=== PATIENT | female | born 1990 | race American Indian/Alaskan Native ===

== ENCOUNTER 2017-07-18 20:57 | Emergency (ER) | payer MEDICAID ==
[2017-07-18 21:10] VITALS: BP 132/93
[2017-07-18] MEDS ORDERED: PENICILLIN VK 250 MG TABLET PO STA (21:30)
[2017-07-18] MEDS ORDERED: oxyCODONE 5 MG TABLET PO STA (21:30)
--- NOTE | 2017-07-18 21:38 | ED Physician Documentation ---
PD HPI HEENT - Stated complaint Stated Complaint: LT MOUTH SWELL/PX - Chief complaint Chief Complaint: Heent - History obtained from History obtained from: Patient, Family - History of Present Illness Timing - onset: How many days ago (4) Timing - duration: Days (4) Timing - details: Gradual onset Pain level max: 8 Pain level now: 8 Location: Tooth (left lower molar) Improves: Nothing Worsens: Swalllowing Associated symptoms: No: Fever, Congestion, Rhinorrhea, Trismus, Unable to swallow, Swollen nodes, Facial swelling, Headache, Cough Similar symptoms before: Diagnosis (dental infections) Recently seen: Not recently seen Review of Systems Constitutional: denies: Fever, Chills Throat: denies: Sore throat Cardiac: denies: Chest pain / pressure Respiratory: denies: Cough GI: denies: Abdominal Pain, Nausea, Vomiting, Diarrhea : denies: Dysuria, Frequency, Hesitancy, Now EGA Skin: denies: Rash PD PAST MEDICAL HISTORY - Past Medical History Cardiovascular: None Respiratory: Asthma Endocrine/Autoimmune: None GI: None : None HEENT: None Psych: None Musculoskeletal: None Derm: None - Past Surgical History Past Surgical History: Yes General: Cholecystectomy - Present Medications Home Medications: Ambulatory Orders Medication Instructions Recorded Confirmed Albuterol Sulfate [Ventolin Hfa] 2 puffs IH Q4H PRN #1 hfa.aer.ad 06/11/1607/18 Hydrocodone/Acetaminophen 1 - 2 each PO Q6H PRN #14 tablet 07/18/17 [Hydrocodon-Acetaminophen 5-325] Ibuprofen [Motrin] 800 mg PO Q8H PRN #30 tablet 07/18/17 Penicillin V Potassium 500 mg PO Q6HR #40 tablet 07/18/17 - Allergies Allergies/Adverse Reactions: Allergies Allergy/AdvReac Type Severity Reaction Status Date / Time No Known Drug Allergies Allergy Verified 07/18/17 21:10 - Social History Does the pt smoke?: Yes Smoking Status: Current every day smoker Does the pt drink ETOH?: Yes Does the pt have substance abuse?: No - Immunizations Immunizations are current?: Yes PD ED PE NORMAL - Vitals Vital signs reviewed: Yes - General General: Alert and oriented X 3, No acute distress, Well developed/nourished - HEENT HEENT: PERRL, Moist mucous membranes, Other (Diffuse dental decay, there is tenderness at the left lower molar. No drainable abscess. No gingival swelling. No Rylan's angina) - Neck Neck: Supple, no meningeal sign, No adenopathy - Cardiac Cardiac: RRR, No murmur - Respiratory Respiratory: No respiratory distress - Derm Derm: Warm and dry - Neuro Neuro: Alert and oriented X 3 - Psych Psych: Normal mood, Normal affect Results - Vitals Vitals: Vital Signs - 24 hr 07/18/17 21:08 Temperature 36.6 C Heart Rate 61 Respiratory 18 Rate Blood Pressure 132/93 H O2 Saturation 100 Oxygen O2 Source Room air PD MEDICAL DECISION MAKING - ED course Complexity details: considered differential, d/w patient, d/w family ED course: Patient with dental caries and dental pain. No evidence of facial cellulitis or drainable abscess. Will place on antibiotics and pain medication for home and follow-up with her dentist. Patient counseled regarding signs and symptoms for which I believe and urgent re-evaluation would be necessary. Patient with good understanding of and agreement to plan and is comfortable going home at this time This document was made in part using voice recognition software. While efforts are made to proofread this document, sound alike and grammatical errors may occur. Normal phonation. No trismus. No fever Departure - Departure Disposition: 01 Home, Self Care Clinical Impression: Dental caries Condition: Good Instructions: ED Tooth Pain Follow-Up: your,dentist within 3 days [Other] Prescriptions: Penicillin V Potassium 500 mg PO Q6HR #40 tablet Hydrocodone/Acetaminophen [Hydrocodon-Acetaminophen 5-325] 1 - 2 each PO Q6H PRN #14 tablet PRN Reason: pain Ibuprofen [Motrin] 800 mg PO Q8H PRN #30 tablet PRN Reason: PAIN &/OR FEVER Comments: Take all antibiotics until gone. Return if you worsen. Make sure to follow-up with your dentist as soon as possible. Do not drink alcohol or drive while on narcotic pain medicine. Note that many narcotic pain relievers also contain tylenol/acetaminophen. Please ensure that your total dose of acetaminophen from all sources does not exceed 3 grams (3000mg) per day. You may constipated on this medication, take a stool softener such as "Colace" twice a day while you are on it. Also recommend a mude-bxx-kjiywzj laxative such as senna or MiraLAX any day that you do not have a bowel movement. If you received narcotic pain medication in the emergency department, do not drive or operate machinery for the next 24 hours. Your blood pressure was elevated today on check in to the emergency department. This does not mean that you have hypertension, it is a common phenomenon to check into the emergency department and have elevated blood pressure. I recommend that you see your primary care physician within the week to have it rechecked when you're feeling better. Discharge Date/Time: 07/18/17 21:45
[2017-07-18] MEDS ORDERED: PENICILLIN VK 250 MG TABLET PO ONE (21:40)
[2017-07-18] MEDS ORDERED: oxyCODONE 5 MG TABLET ONE (21:40)
== END 2017-07-18 21:45 | disposition home or self-care (01) ==
LOC: ED 20:57
DX: K02.9 Dental caries, unspecified (principal); R03.0 Elevated blood-pressure reading, without diagnosis of hypertension; F17.200 Nicotine dependence, unspecified, uncomplicated
CPT/HCPCS: 99283; A9270

== ENCOUNTER 2018-01-06 22:46 | Emergency (ER) | payer MEDICAID ==
--- NOTE | 2018-01-07 02:36 | ED Physician Documentation ---
PD HPI BACK PAIN - Stated complaint Stated Complaint: BACK PX - Chief complaint Chief Complaint: Back Pain - History obtained from History obtained from: Patient - History of Present Illness Timing - onset: Today Timing - duration: Hours Timing - details: Gradual onset Location: Upper, Mid, Left Quality: Pain Associated symptoms: No: Fever, Weakness, Numbness, Incontinent of urine, Unable to urinate, Hematuria, Incontinent of stool Improves with: Nothing Worsened by: Other (pleuritic (deep inspiration)) Similar symptoms before: Has not had sx before Recently seen: Not recently seen - Additional information Additional information: c/o left chest pain, posterior aspect, radiates to neck as well as lower left back. pleuritic component. denies h/o similar sx. Review of Systems Constitutional: reports: Reviewed and negative Cardiac: reports: Chest pain / pressure. denies: Palpitations, Pedal edema, Calf pain Respiratory: reports: Cough (mild, nonproductive). denies: Dyspnea, Hemoptysis , Wheezing GI: reports: Reviewed and negative Musculoskeletal: denies: Extremity swelling PD PAST MEDICAL HISTORY - Past Medical History Cardiovascular: None Respiratory: Asthma Endocrine/Autoimmune: None GI: None : None HEENT: None Psych: None Musculoskeletal: None Derm: None - Past Surgical History Past Surgical History: Yes General: Cholecystectomy - Present Medications Home Medications: Ambulatory Orders Medication Instructions Recorded Confirmed Albuterol Sulfate [Ventolin Hfa] 2 puffs IH Q4H PRN #1 hfa.aer.ad 06/11/1607/18 Hydrocodone/Acetaminophen 1 - 2 each PO Q6H PRN #14 tablet 07/18/17 [Hydrocodon-Acetaminophen 5-325] Ibuprofen [Motrin] 800 mg PO Q8H PRN #30 tablet 07/18/17 Penicillin V Potassium 500 mg PO Q6HR #40 tablet 07/18/17 Hydrocodone/Acetaminophen 1 - 2 each PO Q6HR PRN #14 tablet 01/07/18 [Hydrocodon-Acetaminophen 5-325] - Allergies Allergies/Adverse Reactions: Allergies Allergy/AdvReac Type Severity Reaction Status Date / Time No Known Drug Allergies Allergy Verified 01/06/18 22:57 - Social History Does the pt smoke?: Yes Smoking Status: Current every day smoker Does the pt drink ETOH?: Yes Does the pt have substance abuse?: No - Immunizations Immunizations are current?: Yes PD ED PE NORMAL - Vitals Vital signs reviewed: Yes - General General: Alert and oriented X 3, No acute distress, Well developed/nourished - HEENT HEENT: Moist mucous membranes - Neck Neck: Supple, no meningeal sign - Cardiac Cardiac: No murmur - Respiratory Respiratory: No respiratory distress, Clear bilaterally - Abdomen Abdomen: Soft, Non tender - Extremities Extremities: No edema PD ED PE EXPANDED - Cardiac Cardiac: Tachy, Regular Rhythm Results - Vitals Vitals: Vital Signs - 24 hr 01/06/18 01/07/18 01/07/18 22:52 03:06 04:26 Temperature 36.1 C L Heart Rate 101 H 70 108 H Respiratory 17 18 16 Rate Blood Pressure 107/69 106/74 96/68 O2 Saturation 97 95 94 Oxygen O2 Source Room air - Labs Labs: Laboratory Tests 01/07/18 01/07/18 01/07/18 03:06 03:06 03:06 WBC 11.1 H RBC 4.14 L Hgb 12.5 Hct 38.1 MCV 92.0 MCH 30.3 MCHC 33.0 RDW 13.3 Plt Count 205 MPV 6.8 L Neut # 9.6 H Lymph # 0.7 L [place] # 0.7 Eos # 0.0 Baso # 0.0 Absolute Nucleated RBC 0.00 Nucleated RBC % 0.0 D-Dimer 491.7 H Sodium 128 L Potassium 3.6 Chloride 94 L Carbon Dioxide 26 Anion Gap 8.0 BUN 8 Creatinine 0.7 Estimated GFR (MDRD) 100 Glucose 104 H Calcium 8.0 L - Rads (name of study) chest xray Radiology: Prelim report reviewed, See rad report PD MEDICAL DECISION MAKING - ED course Complexity details: reviewed results, re-evaluated patient, considered differential, d/w patient ED course: patient reported resolution of discomfort with the toradol. elevated d-dimer, but at reevaulation, her pulse was 70. per uptodate algorithms use of 500 as cut-off (and considering lack of PE risk factors or concerning signs such as sustained tachycardia), further study such as CT is unnecessary. Departure - Departure Disposition: 01 Home, Self Care Clinical Impression: Chest pain Qualifiers: Chest pain type: chest pain on breathing Qualified Code(s): R07.1 - Chest pain on breathing Condition: Good Instructions: ED Chest Pain Pleurisy Follow-Up: [facility] [Provider Group] [facility] [Provider Group] Prescriptions: Hydrocodone/Acetaminophen [Hydrocodon-Acetaminophen 5-325] 1 - 2 each PO Q6HR PRN #14 tablet PRN Reason: Pain Discharge Date/Time: 01/07/18 04:53
[2018-01-07] MEDS ORDERED: KETOROLAC 60 MG/2 ML VIAL IVP STA (02:45)
[2018-01-07 03:13] LABS: BASOPHILS % (AUTO) 0.2 %; EOSINOPHILS % (AUTO) 0.3 %; HGB - HEMOGLOBIN 12.5 g/dL (12.0-16.0); LYMPHOCYTES # (AUTO) 0.7 10^3/uL (1.5-3.5); LYMPHOCYTES % (AUTO) 6.4 %; MEAN CORPUSCULAR HEMOGLOBIN 30.3 pg (27.0-31.0); MEAN PLATELET VOLUME 6.8 fL (7.9-10.8); MONOCYTES # (AUTO) 0.7 10^3/uL (0.0-1.0); MONOCYTES % (AUTO) 6.3 %; NEUTROPHILS # (AUTO) 9.6 10^3/uL (1.5-6.6); NEUTROPHILS % (AUTO) 86.8 %; PLT - PLATELET COUNT 205 10^3/uL (130-450); RED BLOOD COUNT 4.14 10^6/uL (4.20-5.40); RED CELL DISTRIBUTION WIDTH 13.3 % (12.0-15.0); WHITE BLOOD COUNT 11.1 x10^3/uL (4.8-10.8)
[2018-01-07 03:19] LABS: CREATININE 0.7 mg/dL (0.4-1.0)
--- NOTE | 2018-01-07 03:28 | XRAY Report ---
EXAM: CHEST RADIOGRAPHY EXAM DATE: 01/07/2018 03:19 AM. CLINICAL HISTORY: Left-sided chest pain, pleuritic. COMPARISON: 08/28/2015. TECHNIQUE: 2 views. FINDINGS: Lungs/Pleura: No focal opacities evident. No pleural effusion. No pneumothorax. Normal volumes. Mediastinum: Heart and mediastinal contours are unremarkable. Other: None. IMPRESSION: Normal 2-view chest radiography. [facility] Referring Provider Line: [phone] SITE ID: [id number]
[2018-01-07 04:29] VITALS: BP 96/68
== END 2018-01-07 04:53 | disposition home or self-care (01) ==
LOC: ED 22:46
DX: R07.1 Chest pain on breathing (principal); J45.909 Unspecified asthma, uncomplicated; F17.200 Nicotine dependence, unspecified, uncomplicated
CPT/HCPCS: 36415; 71046; 80048; 85025; 85379; 96374; 99283

== ENCOUNTER 2018-01-08 21:09 | Inpatient (IN) | payer MEDICAID ==
[2018-01-08] MEDS ORDERED: KETOROLAC 60 MG/2 ML VIAL IVP STA (21:29)
[2018-01-08] MEDS ORDERED: SODIUM CHLORIDE 0.9% 1,000 ML IV ONE (21:29)
--- NOTE | 2018-01-08 21:33 | ED Physician Documentation ---
PD HPI BACK INJURY - Stated complaint Stated Complaint: BACK PX - History obtained from History obtained from: Patient - History of Present Illness Type of injury: Other (27-year-old woman developed sweats and tactile fevers yesterday as well as left-sided back pain. She was seen here and evaluated, a chest x-ray was negative. Lab work was notable for a white count of 11.1 and a borderline d-dimer. Since then the pain has moved out a little bit, she points to the left flank and below and she still has fevers and sweats. She has been taking Vicodin without relief. She denies any drug use. She has a headache 2. She denies urinary complaints.) Review of Systems Constitutional: reports: Fever, Chills Ears: denies: Loss of hearing, Ear pain Nose: denies: Rhinorrhea / runny nose, Congestion Throat: denies: Sore throat Cardiac: denies: Chest pain / pressure, Palpitations Respiratory: denies: Dyspnea, Cough GI: reports: Abdominal Pain. denies: Nausea, Vomiting, Constipation, Diarrhea : reports: Dysuria, Frequency PD PAST MEDICAL HISTORY - Past Medical History Cardiovascular: None Respiratory: Asthma Endocrine/Autoimmune: None GI: None : None HEENT: None Psych: None Musculoskeletal: None Derm: None - Past Surgical History Past Surgical History: Yes General: Cholecystectomy - Present Medications Home Medications: Ambulatory Orders Medication Instructions Recorded Confirmed Albuterol Sulfate [Ventolin Hfa] 2 puffs IH Q4H PRN #1 hfa.aer.ad 06/11/1607/18 Hydrocodone/Acetaminophen 1 - 2 each PO Q6H PRN #14 tablet 07/18/17 [Hydrocodon-Acetaminophen 5-325] Ibuprofen [Motrin] 800 mg PO Q8H PRN #30 tablet 07/18/17 Penicillin V Potassium 500 mg PO Q6HR #40 tablet 07/18/17 Hydrocodone/Acetaminophen 1 - 2 each PO Q6HR PRN #14 tablet 01/07/18 [Hydrocodon-Acetaminophen 5-325] - Allergies Allergies/Adverse Reactions: Allergies Allergy/AdvReac Type Severity Reaction Status Date / Time No Known Drug Allergies Allergy Verified 01/06/18 22:57 - Social History Does the pt smoke?: Yes Smoking Status: Current every day smoker Does the pt drink ETOH?: Yes Does the pt have substance abuse?: No - Family History Family history: reports: Non contributory - Immunizations Immunizations are current?: Yes PD ED PE NORMAL - Vitals Vital signs reviewed: Yes - General General: Alert and oriented X 3, Well developed/nourished, Other (appears uncomfortable) - HEENT HEENT: PERRL, EOMI, Pharynx benign (dry MM) - Neck Neck: Supple, no meningeal sign, No bony TTP - Cardiac Cardiac: RRR, No murmur - Respiratory Respiratory: No respiratory distress, Clear bilaterally - Abdomen Abdomen: Normal bowel sounds, Soft, Non tender - Back Back: No CVA TTP, No spinal TTP - Derm Derm: Normal color, Warm and dry - Extremities Extremities: No deformity, No tenderness to palpate, Other (The patient has equal and normal Achilles and patellar reflexes bilaterally. Normal sensation in all areas of the legs. Patient denies saddle anesthesia. Normal strength in flexion-extension at the ankles, knees, and flexion of the hips.) - Neuro Neuro: Alert and oriented X 3, Normal speech - Psych Psych: Normal mood, Normal affect Results - Vitals Vitals: Vital Signs - 24 hr 01/08/18 01/08/18 01/08/18 21:16 22:21 22:40 Temperature 36.2 C L Heart Rate 91 83 83 Respiratory 15 16 Rate Blood Pressure 92/55 L 95/59 L 86/55 L O2 Saturation 100 100 01/08/18 01/08/18 23:15 23:23 Temperature Heart Rate 82 78 Respiratory 18 18 Rate Blood Pressure 86/56 L 87/62 L O2 Saturation 100 100 Oxygen O2 Source Room air - Labs Labs: Laboratory Tests 01/08/18 01/08/18 01/08/18 21:35 21:39 21:39 WBC 13.4 H RBC 3.86 L Hgb 11.7 L Hct 35.5 L MCV 91.9 MCH 30.3 MCHC 33.0 RDW 13.6 Plt Count 215 MPV 7.2 L Neut # 12.2 H Lymph # 0.5 L [place] # 0.6 Eos # 0.0 Baso # 0.1 Absolute Nucleated RBC 0.00 Nucleated RBC % 0.0 Sodium 127 L Potassium 3.3 L Chloride 96 L Carbon Dioxide 22 Anion Gap 9.0 BUN 16 Creatinine 1.0 Estimated GFR (MDRD) 67 L Glucose 106 H Lactic Acid Calcium 7.7 L Total Bilirubin 0.4 AST 36 ALT 62 H Alkaline Phosphatase 147 H Total Protein 7.0 Albumin 2.8 L Globulin 4.2 Albumin/Globulin Ratio 0.7 L Lipase < 10 L Urine Color Urine Clarity Urine pH Ur Specific [place] Urine Protein Urine Glucose (UA) Urine Ketones Urine Occult Blood Urine Nitrite Urine Bilirubin Urine Urobilinogen Ur Leukocyte Esterase Urine RBC Urine WBC Ur Squamous Epith Cells Urine Bacteria Ur Microscopic Review Urine Culture Comments Urine HCG, Qual Urine Opiates Screen Ur Oxycodone Screen Urine Methadone Screen Ur Propoxyphene Screen Ur Barbiturates Screen Ur Tricyclics Screen Ur Phencyclidine Scrn Ur Amphetamine Screen U Methamphetamines Scrn U Benzodiazepines Scrn Urine Cocaine Screen U Cannabinoids Screen Influenza A (Rapid) Negative Influenza B (Rapid) Negative 01/08/18 01/08/18 01/08/18 21:39 22:10 22:10 WBC RBC Hgb Hct MCV MCH MCHC RDW Plt Count MPV Neut # Lymph # [place] # Eos # Baso # Absolute Nucleated RBC Nucleated RBC % Sodium Potassium Chloride Carbon Dioxide Anion Gap BUN Creatinine Estimated GFR (MDRD) Glucose Lactic Acid 4.1 H* Calcium Total Bilirubin AST ALT Alkaline Phosphatase Total Protein Albumin Globulin Albumin/Globulin Ratio Lipase Urine Color YELLOW Urine Clarity CLOUDY Urine pH 6.0 Ur Specific [place] 1.015 Urine Protein 100 H Urine Glucose (UA) NEGATIVE Urine Ketones NEGATIVE Urine Occult Blood MODERATE H Urine Nitrite NEGATIVE Urine Bilirubin NEGATIVE Urine Urobilinogen >=8.0 H Ur Leukocyte Esterase MODERATE H Urine RBC 0-5 Urine WBC >25 H Ur Squamous Epith Cells RARE Squamous Urine Bacteria Many H Ur Microscopic Review INDICATED Urine Culture Comments INDICATED Urine HCG, Qual NEGATIVE Urine Opiates Screen POSITIVE H Ur Oxycodone Screen POSITIVE H Urine Methadone Screen NEGATIVE Ur Propoxyphene Screen NEGATIVE Ur Barbiturates Screen NEGATIVE Ur Tricyclics Screen NEGATIVE Ur Phencyclidine Scrn NEGATIVE Ur Amphetamine Screen POSITIVE H U Methamphetamines Scrn POSITIVE H U Benzodiazepines Scrn NEGATIVE Urine Cocaine Screen NEGATIVE U Cannabinoids Screen NEGATIVE Influenza A (Rapid) Influenza B (Rapid) PD MEDICAL DECISION MAKING - ED course ED course: 27-year-old woman is ill with left-sided back pain sweats and fevers. She was seen yesterday, I guess for higher back pain and the workup was negative. Seems more over the kidney today and a urinalysis is obtained and with obvious infection and an increasing white count and some borderline blood pressures necessitating aggressive crystalloid fluid therapy especially in light of a lactate of a little over 4. She does not need pressors at this juncture and does not appear critically ill but obviously needs to be treated as such. She was administered Rocephin and Cipro after blood cultures and urinalysis were obtained. Call to Dr. August for admission at 10:58 PM. - Critical Care Time(min): 40 Time Includes: Direct patient care, Review records, Reassess patient, Document care, Coordinate care, Medical consult Procedures included in critical care time: Peripheral IV Departure - Departure Disposition: 66 [facility] DC/Xfer Clinical Impression: Pyelonephritis, Septic shock Condition: Serious
[2018-01-08 21:48] LABS: BASOPHILS # (AUTO) 0.1 10^3/uL (0.0-0.1); BASOPHILS % (AUTO) 0.4 %; HGB - HEMOGLOBIN 11.7 g/dL (12.0-16.0); LYMPHOCYTES # (AUTO) 0.5 10^3/uL (1.5-3.5); MEAN CORPUSCULAR HEMOGLOBIN 30.3 pg (27.0-31.0); MEAN CORPUSCULAR VOLUME 91.9 fL (81.0-99.0); MEAN PLATELET VOLUME 7.2 fL (7.9-10.8); MONOCYTES # (AUTO) 0.6 10^3/uL (0.0-1.0); MONOCYTES % (AUTO) 4.8 %; NEUTROPHILS # (AUTO) 12.2 10^3/uL (1.5-6.6); NEUTROPHILS % (AUTO) 90.8 %; PLT - PLATELET COUNT 215 10^3/uL (130-450); RED BLOOD COUNT 3.86 10^6/uL (4.20-5.40); RED CELL DISTRIBUTION WIDTH 13.6 % (12.0-15.0); WHITE BLOOD COUNT 13.4 x10^3/uL (4.8-10.8)
[2018-01-08] MEDS ORDERED: IOPAMIDOL-300 100 ML VIAL ONE (21:49)
[2018-01-08] MEDS ORDERED: LACTATED RINGERS 2,000 ML IV STA (21:56)
[2018-01-08 22:02] LABS: ALBUMIN 2.8 g/dL (3.2-5.5); ALBUMIN/GLOBULIN RATIO 0.7 (1.0-2.2); ALKALINE PHOSPHATASE 147 IU/L (42-121); ALT ALANINE AMINOTRANSFERASE 62 IU/L (10-60); AST ASPARTATE AMINOTRANSFERASE 36 IU/L (10-42); BILIRUBIN,TOTAL 0.4 mg/dL (0.2-1.0); BUN - BLOOD UREA NITROGEN 16 mg/dL (6-20); CALCIUM 7.7 mg/dL (8.5-10.3); CARBON DIOXIDE - CO2 22 mmol/L (21-32); CHLORIDE 96 mmol/L (101-111); GFR - MDRD 67 (>89); GLUCOSE 106 mg/dL (70-100); SODIUM 127 mmol/L (135-145)
[2018-01-08 22:03] LABS: LIPASE < 10 U/L (22-51)
[2018-01-08 22:23] LABS: MUDS CUTOFF CONCENTRATIONS CUTOFF CONC BELOW:
[2018-01-08 22:26] LABS: GLUCOSE, URINE (UA) NEGATIVE (NEGATIVE); KETONES,URINE (UA) NEGATIVE (NEGATIVE); LEUKOCYTE ESTERASE, URINE MODERATE (NEGATIVE); NITRITE,URINE NEGATIVE (NEGATIVE); OCCULT BLOOD,URINE MODERATE (NEGATIVE); PROTEIN,URINE 100 mg/dL (NEGATIVE); UROBILINOGEN,URINE >=8.0 E.U./dL (NORMAL)
[2018-01-08 22:41] LABS: BILIRUBIN,URINE NEGATIVE (NEGATIVE); CLARITY,URINE CLOUDY (CLEAR); HCG UR QUAL NEGATIVE; ICTOTEST,URINE NEGATIVE
[2018-01-08 22:42] LABS: AMPHETAMINE SCREEN,URINE POSITIVE (NEGATIVE); BACTERIA,URINE Many /HPF (None Seen); BENZODIAZEPINES SCREEN, URINE NEGATIVE (NEGATIVE); COCAINE SCREEN URINE NEGATIVE (NEGATIVE); METHADONE SCREEN, URINE NEGATIVE (NEGATIVE); METHAMPHETAMINES SCREEN, URINE POSITIVE (NEGATIVE); OPIATE SCREEN, URINE POSITIVE (NEGATIVE); OXYCODONE SCREEN, URINE POSITIVE (NEGATIVE); PROPOXYPHENE SCREEN, URINE NEGATIVE (NEGATIVE); RBC,URINE 0-5 /HPF (0-5); SQUAMOUS EPITHELIAL CELL,UR RARE Squamous (<= Few); TRICYCLIC ANTIDEPRESSANT,URINE NEGATIVE (NEGATIVE)
[2018-01-08] MEDS ORDERED: cefTRIAXone 1 GM in SODIUM CHLORIDE 0.9% MINIBAG 100 ML IV STA (22:54)
[2018-01-08] MEDS ORDERED: CIPROFLOXACIN 400 MG/200 ML 200 ML IV ONE (22:56)
[2018-01-08] MEDS ORDERED: IOPAMIDOL-300 100 ML VIAL IVP ONE (22:56)
[2018-01-08] MEDS ORDERED: oxyCODONE 5 MG TABLET PO PRN (23:25)
[2018-01-08] MEDS ORDERED: ONDANSETRON 4 MG/2 ML VIAL IVP PRN (23:25)
[2018-01-08] MEDS ORDERED: POTASSIUM CHLORIDE 20 MEQ TABLET PO SCH (23:30)
--- NOTE | 2018-01-08 23:30 | CT Preliminary Report ---
Exam: CT ABDOMEN/PELVIS W/ IMPRESSION: 1. Small focal irregular consolidated opacity seen medially in the right lower lobe measuring 2.2 x 2 .3 centimeters. This could represent pneumonia versus scarring. Irregular malignant nodule is not com pletely excluded and follow-up is recommended. Mild hazy opacity seen posteriorly in the bilateral lo wer lobes, could be atelectasis. Minimal irregular opacities in the right middle lobe and lingula, co uld represent atelectasis or scarring. 2. Mild intrahepatic bile duct dilatation. The gallbladder is been removed. The common duct is mildly dilated at 9 mm, tapers at the distal aspect. 3. Low-density cystic mass seen at the head of the pancreas measuring 8 x 12 mm. A one-year follow-up exam such as an MR pancreas mass protocol can be obtained to confirm stability. 4. Enlarged left kidney with multiple areas of ill-defined hypodensities consistent with severe acute left pyelonephritis. 5. There appears to be a left hemorrhagic ovarian cyst measuring 3.4 x 2.6 cm. recommend follow-up pe lvic ultrasound in 6 weeks to ensure resolution. 6. Minimal free fluid in the posterior cul-de-sac. 7. Otherwise, as above. [facility] SITE ID: [id number]
[2018-01-08] MEDS ORDERED: ACETAMINOPHEN 1,000 MG/100 ML 100 ML IV SCH (23:32)
[2018-01-08] MEDS ORDERED: ALBUTEROL NEB 2.5 MG/3 ML INH PRN (23:34)
[2018-01-08] MEDS ORDERED: BUDESONIDE/FORMOTEROL 80/4.5 MCG INHALER INH SCH (23:45)
[2018-01-09] MEDS ORDERED: PIPERACILLIN/TAZOBACTAM 3.375 GM in SODIUM CHLORIDE 0.9% MINIBAG 100 ML IV SCH ×2
--- NOTE | 2018-01-09 | CT Report ---
EXAM: CT ABDOMEN AND PELVIS EXAM DATE: 01/08/2018 10:58 PM. CLINICAL HISTORY: Left abdominal pain. COMPARISONS: None. TECHNIQUE: Routine helical CT imaging was performed through the abdomen and pelvis. IV contrast: 100 mL Isovue 300. Enteric contrast: No. Reconstructions: Coronal and sagittal. In accordance with CT protocol optimization, one or more of the following dose reduction techniques w ere utilized for this exam: automated exposure control, adjustment of mA and/or KV based on patient s ize, or use of iterative reconstructive technique. FINDINGS: Lung Bases: Small focal irregular consolidated opacity seen medially in the right lower lobe measurin g 2.2 x 2.3 cm. Mild hazy opacity seen posteriorly in the bilateral lower lobes, could be atelectasis . Minimal irregular opacities in the right middle lobe and lingula. Mild intrahepatic bile duct dilatation. The gallbladder has been removed. The common duct is mildly d ilated at 9 mm, tapers at the distal aspect. No focal liver lesions are seen. Low-density cystic mass seen at the head of the pancreas measuring 8 x 12 mm. A one-year follow-up ex am such as an MR pancreatic mass protocol could be obtained to confirm stability. Spleen: Unremarkable. Adrenals: Unremarkable. Enlarged left kidney with multiple areas of ill-defined hypodensities consistent with severe acute le ft pyelonephritis. No definite abscess is seen. No hydronephrosis. Adjacent stranding. The right kidn ey appears unremarkable. Bowel: No acute bowel findings are seen. The appendix is not definitely seen. Minimal free fluid in t he posterior cul-de-sac. Pelvis: The bladder is not fully distended which limits evaluation. The uterus is retroverted. There appears to be a left hemorrhagic ovarian cyst measuring 3.4 x 2.6 cm. Vascular Structures: No acute findings. Bones: No acute bone findings. IMPRESSION: 1. Small focal irregular consolidated opacity seen medially in the right lower lobe measuring 2.2 x 2 .3 cm. This could represent pneumonia versus scarring. Irregular malignant nodule is not completely e xcluded and follow-up is recommended. Mild hazy opacity seen posteriorly in the bilateral lower lobes , could be atelectasis. Minimal irregular opacities in the right middle lobe and lingula, could repre sent atelectasis or scarring. 2. Mild intrahepatic bile duct dilatation. The gallbladder has been removed. The common duct is mildl y dilated at 9 mm, tapers at the distal aspect. 3. Low-density cystic mass seen at the head of the pancreas measuring 8 x 12 mm. A one-year follow-up exam such as an MR pancreas mass protocol can be obtained to confirm stability. 4. Enlarged left kidney with multiple areas of ill-defined hypodensities consistent with severe acute left pyelonephritis. 5. There appears to be a left hemorrhagic ovarian cyst measuring 3.4 x 2.6 cm. Recommend follow-up pe lvic ultrasound in 6 weeks to ensure resolution. 6. Minimal free fluid in the posterior cul-de-sac. 7. Otherwise, as above. [facility] Referring Provider Line: [phone] SITE ID: [id number]
[2018-01-09] MEDS: NS W/20 MEQ KCL 1,000 ML IV SCH ×2 (01:43→17:17)
[2018-01-09] MEDS: SODIUM CHLORIDE FLUSH 0.9% 10 ML SYRINGE IVP PRN ×2 (01:49→02:10)
[2018-01-09] MEDS: KETOROLAC 15 MG/ML VIAL IVP SCH ×5 (02:01→23:46)
[2018-01-09] MEDS: LACTOBACILLUS RHAMNOSUS GG CAPSULE PO SCH ×2 (02:07→09:10)
[2018-01-09] MEDS: guaiFENesin 600 MG TABLET PO SCH ×3 (02:07→20:59)
[2018-01-09] MEDS: SODIUM CHLORIDE FLUSH 0.9% 10 ML SYRINGE IVP SCH ×3 (02:38→17:05)
--- NOTE | 2018-01-09 03:52 | HISTORY & PHYSICAL EXAMINATION ---
DATE OF SERVICE: 01/08/2018 Physician: Natalie August MD CHIEF COMPLAINT: Back pain. HISTORY OF PRESENT ILLNESS: The patient is a 27-year-old, white female with no significant past medical history who presented to the ER yesterday on January 07, and was evaluated for pleuritic chest pain. Her workup was unrevealing. Therefore, she was discharged from the ER. Today, she returned with similar complaints, although her complaints were somewhat vague. She reported that she started to have back pain about 5 days ago. She also reported that when she would take a deep breath her back and chest would hurt. Subsequently, she developed fever and headache. Today, prior to coming to the ER, the left side of her back and flank hurt and the pain radiated to her abdomen. She did not report history of prior urinary tract infection. Did not report symptoms of dysuria. Denied abnormal menstrual periods. She has been sexually active with one partner. I asked her about substance abuse and she reported that she smokes certain substances. She denied IV drug use. She was not very forthcoming, but admitted to using amphetamine and methamphetamine. Upon presentation to the ER, the patient appeared acutely ill. Her vital signs showed borderline low blood pressure 80-90 systolic, temperature was 36.2 Celsius, heart rate between 80 and 90, respiratory rate 16, oxygen saturation 100% on room air. Laboratories had numerous abnormalities including abnormal electrolyte panel: Sodium 127, potassium 3.3, lactic acid 4.1. Slightly abnormal liver function tests: ALT 62 , alkaline phosphatase 147. Lipase was low. White blood cell count was elevated at 13.4, hemoglobin was 11.7. Urinalysis was strongly positive, showing many bacteria. Toxicology screen was positive for opiate, oxycodone, amphetamine and methamphetamines. Influenza screen was negative. The patient underwent CT scan of the abdomen and pelvis, which showed numerous abnormalities. The following preliminary radiology read is available: 1. Enlarged left kidney with multiple areas of ill-defined hypodensities, consistent with severe acute left pyelonephritis. 2. Low density cystic mass in the head of the pancreas measuring 8 x 12 mm. One year followup with MRI pancreas mass protocol was recommended. 3. Mild intrahepatic bile duct dilatation, status post cholecystectomy. 4. Multiple irregular focal densities in the chest, including right lower lobe lesion measuring 2.2 x 2.3 cm. This was read as pneumonia versus scarring. Irregular malignant nodule could not be excluded and followup for that was recommended. In addition, there were hazy opacities posteriorly in the bilateral lower lobes, which could be atelectasis, and minimal irregular opacities in the right middle lobe and lingula could be atelectasis or scarring. 5. Hemorrhagic left ovarian cyst. 6. Minimal free fluid in the posterior cul-de-sac. PAST MEDICAL HISTORY 1. Asthma. 2. Status post cholecystectomy. OUTPATIENT MEDICATIONS Include: 1. Inhaler/albuterol. 2. Hydrocodone, which was given during prior ER visit. FAMILY HISTORY: The patient is adopted. SOCIAL HISTORY: The patient smokes cigarettes. She also uses amphetamine and smokes different substances, but denied IV drug abuse. Does not drink. REVIEW OF SYSTEMS: Please see pertinent positives listed above that history of present illness. The patient did not report additional complaint on the 12-point review. PHYSICAL EXAMINATION VITAL SIGNS: Listed above at history of present illness. GENERAL: The patient is a well-developed, young female who was not in acute distress. SKIN: Without rash. HEENT: Oral mucosa dry, poor dentition, decay, and broken teeth. LYMPHATIC: No lymphedema. CARDIOVASCULAR: S1, S2, regular. No pathologic murmur. RESPIRATORY: No wheezes. No crackles. Good air entry throughout. No increased work of breathing. ABDOMEN: At the time of my exam, there was no tenderness, No guarding, no rebound. No costovertebral angle tenderness. Bowel tones were hypoactive. NEUROLOGIC: Alert, oriented, nonfocal. PSYCHIATRIC: Cooperative. ASSESSMENT/ACTIVE ISSUES/DIAGNOSES 1. Sepsis. Blood pressure on the lower side; however, no tachycardia and no fever. 2. Severe left-sided pyelonephritis/urinary tract infection. 3. Probable pneumonia, multiple incidental findings on CT of the lungs plus an infiltrate, which could be pneumonia. In addition, with history of substance abuse and smoking, substance-induced lung injury and noncardiac pulmonary edema could also contribute. 4. Polysubstance abuse/inhalation/smoking. 5. Lactic acidosis secondary to sepsis plus substance abuse. 6. Abnormal electrolytes including hypokalemia and hyponatremia. 7. Normocytic anemia. 8. Multiple incidental findings on abdominal CT scan, which will need followup including a pancreatic lesion, which will require MRI; lung abnormalities including nodules , possible scarring versus nodules/mass, ovarian cyst. PLAN AND ORDERS 1. Patient is getting admitted as inpatient. 2. Given that she both has severe pyelonephritis and a probable pneumonia, she will be treated with Zosyn, which would cover for both. With sepsis and significant pyelonephritis, I would cover for gram-negative rods and Zosyn would do that. Zosyn would also cover for complex pneumonia as well. Considering that besides the back pain, the patient also had pleuritic chest pain, per clinical grounds and radiology finding it is reasonable to assume that she does have pneumonia. Her risk factor for pneumonia would be inhalant drug use, and besides pneumonia she could also have inhalant-induced lung injury. 3. For sepsis and hypotension, the patient already received 3 liters IV fluid in the ER. We will continue IV hydration overnight and electrolyte replacement, potassium will be given. Regarding possibility of vasopressor, the patient is not tachycardic, appears with good organ perfusion such as good mentation, no organ failure, and I suppose that being a young female her blood pressure is probably on the lower side at baseline. For now, I would not start vasopressor; we will follow the clinical course and, if needed, we will upgrade to the ICU. In any case, at this point, she will be admitted to the medical floor and monitored closely. 4. For pneumonia, will order supportive care including Mucinex inhalers, bronchodilator, bowel prophylaxis, deep venous thrombosis prophylaxis. 5. Repeat laboratories in the morning. CODE STATUS: FULL CODE. ATTESTATION: I certify that the reasonable expectation for this patient is to remain hospitalized for more than 2 days. She will need IV antibiotics at least for 3 days, given the severity of sepsis and pyelonephritis, and she will also need to stay hospitalized until urine culture and blood cultures return. Her case is complicated by pneumonia and substance abuse as well. She will be inpatient. It is expected that she gets discharged or transferred to another hospital in less than 96 hours. Time I spent in the care of this patient was 55 minutes. TD: 01/09/2018 03:51 GEORGINA
[2018-01-09 05:22] LABS: EOSINOPHILS % (AUTO) 0.5 %; LYMPHOCYTES # (AUTO) 0.5 10^3/uL (1.5-3.5); LYMPHOCYTES % (AUTO) 5.4 %; MEAN CORPUSCULAR HEMOGLOBIN 30.9 pg (27.0-31.0); MEAN CORPUSCULAR HGB CONC 33.4 g/dL (32.0-36.0); MEAN CORPUSCULAR VOLUME 92.6 fL (81.0-99.0); MEAN PLATELET VOLUME 7.5 fL (7.9-10.8); MONOCYTES # (AUTO) 0.6 10^3/uL (0.0-1.0); NEUTROPHILS # (AUTO) 8.4 10^3/uL (1.5-6.6); NEUTROPHILS % (AUTO) 88.1 %; PLT - PLATELET COUNT 167 10^3/uL (130-450); RED BLOOD COUNT 3.55 10^6/uL (4.20-5.40); RED CELL DISTRIBUTION WIDTH 14.1 % (12.0-15.0); WHITE BLOOD COUNT 9.5 x10^3/uL (4.8-10.8)
[2018-01-09 05:29] LABS: ALBUMIN 2.2 g/dL (3.2-5.5); ALBUMIN/GLOBULIN RATIO 0.7 (1.0-2.2); BILIRUBIN,TOTAL 0.6 mg/dL (0.2-1.0); CALCIUM 7.2 mg/dL (8.5-10.3); CREATININE 0.7 mg/dL (0.4-1.0); TOTAL PROTEIN 5.5 g/dL (6.7-8.2)
[2018-01-09] MEDS ORDERED: POLYETHYLENE GLYCOL 3350 17 GM PACKET PO SCH (09:00)
[2018-01-09] MEDS ORDERED: cefTRIAXone 1 GM in SODIUM CHLORIDE 0.9% MINIBAG 100 ML IV SCH (09:00)
[2018-01-09] MEDS: PIPERACILLIN/TAZOBACTAM 3.375 GM in SODIUM CHLORIDE 0.9% MINIBAG 100 ML IV SCH ×3 (09:06→21:00)
[2018-01-09] MEDS: FORMOTEROL FUMARATE NEB 20 MCG/2 ML INH SCH ×2 (11:59→23:03)
[2018-01-09] MEDS: BUDESONIDE 0.5 MG/2 ML NEB INH SCH ×2 (11:59→23:03)
--- NOTE | 2018-01-09 18:34 | PROVIDER PROGRESS NOTE ---
Assessment/Plan - Problem List (1) Pyelonephritis Assessment/Plan: Patient presented with flank/back pain located more to the left side and this is greatly improved. She continues to deny dysuria, hematuria, or urinary incontinence. When she presented to the ED, she appeared quite ill, and continues to appear fatigued. She has not made extra attempts to ambulate. She denies nausea or vomiting. Plan: Monitor urine out put, treat symptoms and continue IV antibiotics and await urine/blood cultures. (2) Pneumonia Assessment/Plan: Patient continues to appear ill with very low energy. She denies a productive cough. Coarse crackles can be heard bilaterally. Patient has been afebrile. Plan: Continue IV antibiotics and encourage sputum sample. (3) Substance abuse Assessment/Plan: Patient has very poor dentition with very few teeth. This is likely related to prolonged drug abuse. Plan: Continue to monitor for fishy business related to importing contraband. (4) Electrolyte abnormality Assessment/Plan: Upon admission the patient was found to be hyponatremic with a sodium only 127, that has improved to 132 today. She was also noted to be hypokalemic with a potassium of 3.3, that has improved to 3.7 today. Both of these abnormalities can be explained by the primary disease process of a complicated UTI. The patient has not had signs of confusion and her oral intake is now improved. Plan: Monitor labs and replace electrolytes as needed. - Current Meds Current Meds: Current Medications Generic Name Dose Route Start Last Admin Trade Name Freq PRN Reason Stop Dose Admin Albuterol 2.5 mg 01/08/18 23:34 01/09/18 09:15 INH 2.5 mg Q4HR PRN Administration Dyspnea Budesonide 0.5 mg 01/09/18 09:00 01/09/18 11:59 Pulmicort INH Not Given RTBID JOVANNY Formoterol Fumarate 20 mcg 01/09/18 09:00 01/09/18 11:59 Perforomist INH Not Given RTBID JOVANNY Guaifenesin 600 mg 01/08/18 23:45 01/09/18 09:10 Mucinex PO 600 mg BID JOVANNY Administration Potassium Chloride/Sodium Chloride 1,000 mls @ 100 mls/hr 01/08/18 23:45 09/16 17:17 Normal Saline 0.9% W/20 Meq Kcl IV 100 mls/hr .Q10H JOVANNY Administration Piperacillin Sod/Tazobactam 100 mls @ 200 mls/hr 01/09/18 10:00 01/09/18 16: 58 Sod 3.375 gm/ Sodium Chloride IV 200 mls/hr Q6H JOVANNY Administration Ketorolac Tromethamine 15 mg 01/09/18 00:00 01/09/18 17:05 Toradol Inj IVP 01/14/18 00:00 15 mg Q6HR JOVANNY Administration Lactobacillus Rhamnosus 1 cap 01/08/18 23:45 01/09/18 09:10 Culturelle PO 1 cap DAILY JOVANNY Administration Sodium Chloride 10 ml 01/08/18 23:25 01/09/18 02:10 Normal Saline Flush 0.9% IVP 10 ml PRN PRN Administration NEEDED PER PROVIDER ORDERS Sodium Chloride 10 ml 01/09/18 01:00 01/09/18 17:05 Normal Saline Flush 0.9% IVP 10 ml 0100,[id number],1700 JOVANNY Administration - Lab Result Lab results reviewed: Yes Fish Bone Diagrams: 01/11/18 11:29 01/11/18 11:29 - EKG Results EKG Interpreted Independently: Yes - Diagnostic Imaging Results Diagnostic Imaging Results: Prelim report reviewed, Final report reviewed - Additional Planning Condition/Complexity: Stable My Orders: My Active Orders 01/09/18 09:27 RT [Nebulizer/MDI Tx.] [RC] .[id number] Plan Discussed with:: Patient, Spouse Time Spent: 15-30 minutes Subjective - Subjective Patient Reports: Feeling Better, Cough, Fatigue Nursing Reports: No Complaints Objective Vital Signs: Vital Signs - 24 hr 01/09/18 01/09/18 01/09/18 00:00 00:06 07:24 Temperature 36.4 C L 36.6 C Heart Rate 78 Heart Rate [ 80 88 Brachial] Respiratory 17 18 19 Rate Blood Pressure 90/60 Blood Pressure 90/49 L 89/49 L [Left Brachial artery] O2 Saturation 100 100 99 01/09/18 01/09/18 09:29 15:40 Temperature 36.7 C Heart Rate 87 Heart Rate [ 89 Brachial] Respiratory 14 19 Rate Blood Pressure Blood Pressure 92/52 L [Left Brachial artery] O2 Saturation 100 Oxygen O2 Source Room air I&O (Last 24 Hrs): Intake and Output Totals x24h 01/07/18 01/08/18 01/09/18 23:59 23:59 23:59 Intake Total 1600 2355 Output Total 1200 Balance 1600 1155 General: Alert, Oriented x3, Cooperative, Mild distress HEENT: Atraumatic, PERRLA Neck: Supple, No JVD, No thyromegaly Lymphatic: no adenopathy Neuro: Alert, CN 2-12 Grossly Intact, Oriented Times 3 Cardiovascular: Regular rate, Normal S1, Normal S2 Respiratory: Chest non-tender, No respiratory distress, Wheezes, Rhonchi Abdomen: Normal bowel sounds, Soft, Other (gaurded, mildly rounded.) Extremities: No edema, No tenderness/swelling Skin: No rashes, No breakdown, No significant lesion - Results Results: Laboratory Results WBC 9.5 x10^3/uL (4.8-10.8) 01/09/18 04:56 RBC 3.55 10^6/uL (4.20-5.40) L 01/09/18 04:56 Hgb 11.0 g/dL (12.0-16.0) L 01/09/18 04:56 Hct 32.8 % (37.0-47.0) L 01/09/18 04:56 MCV 92.6 fL (81.0-99.0) 01/09/18 04:56 MCH 30.9 pg (27.0-31.0) 01/09/18 04:56 MCHC 33.4 g/dL (32.0-36.0) 01/09/18 04:56 RDW 14.1 % (12.0-15.0) 01/09/18 04:56 Plt Count 167 10^3/uL (130-450) 01/09/18 04:56 MPV 7.5 fL (7.9-10.8) L 01/09/18 04:56 Neut # 8.4 10^3/uL (1.5-6.6) H 01/09/18 04:56 Lymph # 0.5 10^3/uL (1.5-3.5) L 01/09/18 04:56 [place] # 0.6 10^3/uL (0.0-1.0) 01/09/18 04:56 Eos # 0.0 10^3/uL (0.0-0.7) 01/09/18 04:56 Baso # 0.0 10^3/uL (0.0-0.1) 01/09/18 04:56 Absolute Nucleated RBC 0.00 x10^3/uL 01/09/18 04:56 Nucleated RBC % 0.0 /100WBC 01/09/18 04:56 Sodium 132 mmol/L (135-145) L 01/09/18 04:56 Potassium 3.7 mmol/L (3.5-5.0) 01/09/18 04:56 Chloride 103 mmol/L (101-111) 01/09/18 04:56 Carbon Dioxide 23 mmol/L (21-32) 01/09/18 04:56 Anion Gap 6.0 (6-13) 01/09/18 04:56 BUN 13 mg/dL (6-20) 01/09/18 04:56 Creatinine 0.7 mg/dL (0.4-1.0) 01/09/18 04:56 Estimated GFR (MDRD) 100 (>89) 01/09/18 04:56 Glucose 94 mg/dL (70-100) 01/09/18 04:56 Lactic Acid 1.4 mmol/L (0.5-2.2) 01/09/18 04:56 Calcium 7.2 mg/dL (8.5-10.3) L 01/09/18 04:56 Total Bilirubin 0.6 mg/dL (0.2-1.0) 01/09/18 04:56 AST 25 IU/L (10-42) 01/09/18 04:56 ALT 47 IU/L (10-60) 01/09/18 04:56 Alkaline Phosphatase 97 IU/L (42-121) 01/09/18 04:56 Total Protein 5.5 g/dL (6.7-8.2) L 01/09/18 04:56 Albumin 2.2 g/dL (3.2-5.5) L 01/09/18 04:56 Globulin 3.3 g/dL (2.1-4.2) 01/09/18 04:56 Albumin/Globulin Ratio 0.7 (1.0-2.2) L 01/09/18 04:56 Lipase < 10 U/L (22-51) L 01/08/18 21:39 Urine Color YELLOW 01/08/18 22:10 Urine Clarity CLOUDY (CLEAR) 01/08/18 22:10 Urine pH 6.0 PH (5.0-7.5) 01/08/18 22:10 Ur Specific [place] 1.015 (1.002-1.030) 01/08/18 22:10 Urine Protein 100 mg/dL (NEGATIVE) H 01/08/18 22:10 Urine Glucose (UA) NEGATIVE mg/dL (NEGATIVE) 01/08/18 22:10 Urine Ketones NEGATIVE mg/dL (NEGATIVE) 01/08/18 22:10 Urine Occult Blood MODERATE (NEGATIVE) H 01/08/18 22:10 Urine Nitrite NEGATIVE (NEGATIVE) 01/08/18 22:10 Urine Bilirubin NEGATIVE (NEGATIVE) 01/08/18 22:10 Urine Urobilinogen >=8.0 E.U./dL (NORMAL) H 01/08/18 22:10 Ur Leukocyte Esterase MODERATE (NEGATIVE) H 01/08/18 22:10 Urine RBC 0-5 /HPF (0-5) 01/08/18 22:10 Urine WBC >25 /HPF (0-5) H 01/08/18 22:10 Ur Squamous Epith Cells RARE Squamous (<= Few) 01/08/18 22:10 Urine Bacteria Many /HPF (None Seen) H 01/08/18 22:10 Ur Microscopic Review INDICATED 01/08/18 22:10 Urine Culture Comments INDICATED 01/08/18 22:10 Urine HCG, Qual NEGATIVE 01/08/18 22:10 Urine Opiates Screen POSITIVE (NEGATIVE) H 01/08/18 22:10 Ur Oxycodone Screen POSITIVE (NEGATIVE) H 01/08/18 22:10 Urine Methadone Screen NEGATIVE (NEGATIVE) 01/08/18 22:10 Ur Propoxyphene Screen NEGATIVE (NEGATIVE) 01/08/18 22:10 Ur Barbiturates Screen NEGATIVE (NEGATIVE) 01/08/18 22:10 Ur Tricyclics Screen NEGATIVE (NEGATIVE) 01/08/18 22:10 Ur Phencyclidine Scrn NEGATIVE (NEGATIVE) 01/08/18 22:10 Ur Amphetamine Screen POSITIVE (NEGATIVE) H 01/08/18 22:10 U Methamphetamines Scrn POSITIVE (NEGATIVE) H 01/08/18 22:10 U Benzodiazepines Scrn NEGATIVE (NEGATIVE) 01/08/18 22:10 Urine Cocaine Screen NEGATIVE (NEGATIVE) 01/08/18 22:10 U Cannabinoids Screen NEGATIVE (NEGATIVE) 01/08/18 22:10 Influenza A (Rapid) Negative (Negative) 01/08/18 21:35 Influenza B (Rapid) Negative (Negative) 01/08/18 21:35
[2018-01-09] MEDS: ENOXAPARIN 40 MG/0.4 ML SYRINGE SUBQ SCH (20:59)
[2018-01-10] MEDS: SODIUM CHLORIDE FLUSH 0.9% 10 ML SYRINGE IVP SCH ×3 (01:28→16:54)
[2018-01-10] MEDS: PIPERACILLIN/TAZOBACTAM 3.375 GM in SODIUM CHLORIDE 0.9% MINIBAG 100 ML IV SCH (03:46)
[2018-01-10] MEDS: NS W/20 MEQ KCL 1,000 ML IV SCH ×3 (05:49→16:52)
[2018-01-10] MEDS: KETOROLAC 15 MG/ML VIAL IVP SCH ×3 (06:37→18:27)
[2018-01-10] MEDS: BUDESONIDE 0.5 MG/2 ML NEB INH SCH ×2 (07:45→20:00)
[2018-01-10] MEDS: FORMOTEROL FUMARATE NEB 20 MCG/2 ML INH SCH ×2 (07:48→20:00)
[2018-01-10] MEDS: LACTOBACILLUS RHAMNOSUS GG CAPSULE PO SCH (08:53)
[2018-01-10] MEDS: guaiFENesin 600 MG TABLET PO SCH ×2 (08:54→21:06)
[2018-01-10] MEDS: ENOXAPARIN 40 MG/0.4 ML SYRINGE SUBQ SCH (09:05)
[2018-01-10] MEDS: cefTRIAXone 1 GM in SODIUM CHLORIDE 0.9% MINIBAG 100 ML IV SCH (10:18)
[2018-01-10 10:29] LABS: BASOPHILS % (AUTO) 0.2 %; EOSINOPHILS # (AUTO) 0.1 10^3/uL (0.0-0.7); EOSINOPHILS % (AUTO) 0.7 %; HGB - HEMOGLOBIN 9.7 g/dL (12.0-16.0); LYMPHOCYTES # (AUTO) 0.8 10^3/uL (1.5-3.5); LYMPHOCYTES % (AUTO) 6.5 %; MEAN CORPUSCULAR HEMOGLOBIN 31.2 pg (27.0-31.0); MEAN CORPUSCULAR VOLUME 91.7 fL (81.0-99.0); MEAN PLATELET VOLUME 7.1 fL (7.9-10.8); MONOCYTES # (AUTO) 0.7 10^3/uL (0.0-1.0); MONOCYTES % (AUTO) 6.3 %; NEUTROPHILS % (AUTO) 86.3 %; PLT - PLATELET COUNT 170 10^3/uL (130-450); RED CELL DISTRIBUTION WIDTH 14.2 % (12.0-15.0); WHITE BLOOD COUNT 11.6 x10^3/uL (4.8-10.8)
[2018-01-10 10:39] LABS: CALCIUM 7.3 mg/dL (8.5-10.3); CREATININE 0.7 mg/dL (0.4-1.0); MAGNESIUM 1.8 mg/dL (1.7-2.8)
--- NOTE | 2018-01-10 17:21 | PROVIDER PROGRESS NOTE ---
Assessment/Plan - Problem List (1) Escherichia coli urinary tract infection Assessment/Plan: Patient presented with flank/back pain located more to the left side and this is greatly improved. She continues to deny dysuria, hematuria, or urinary incontinence. When she presented to the ED, she appeared quite ill, and continues to appear fatigued. She has not made extra attempts to ambulate. She denies nausea or vomiting. Plan: Monitor urine out put, treat symptoms and continue IV antibiotics and await urine/blood cultures. (2) Pneumonia Assessment/Plan: Patient continues to appear ill with very low energy. She denies a productive cough. Coarse crackles can be heard bilaterally. Patient has been afebrile. Plan: Continue IV antibiotics and encourage sputum sample. (3) Substance abuse Assessment/Plan: Patient has very poor dentition with very few teeth. This is likely related to prolonged drug abuse. Her boyfriend is present for this exam and appears calm and supportive. Plan: Continue to monitor for suspicious visitors, which there have not been reports of as per nursing. (4) Electrolyte abnormality Assessment/Plan: Upon admission the patient was found to be hyponatremic with a sodium only 127, that has improved to 133 today. She was also noted to be hypokalemic with a potassium of 3.3, that has improved to 4.3 today. Both of these abnormalities can be explained by the primary disease process of a complicated UTI. The patient has not had signs of confusion and her oral intake is now improved. Plan: Monitor labs and replace electrolytes as needed. - Current Meds Current Meds: Current Medications Generic Name Dose Route Start Last Admin Trade Name Freq PRN Reason Stop Dose Admin Albuterol 2.5 mg 01/08/18 23:34 01/09/18 09:15 INH 2.5 mg Q4HR PRN Administration Dyspnea Budesonide 0.5 mg 01/09/18 09:00 01/10/18 07:45 Pulmicort INH 0.5 mg RTBID JOVANNY Administration Enoxaparin Sodium 40 mg 01/09/18 21:00 01/10/18 09:05 Lovenox SUBQ Not Given DAILY JOVANNY Formoterol Fumarate 20 mcg 01/09/18 09:00 01/10/18 07:48 Perforomist INH 20 mcg RTBID JOVANNY Administration Guaifenesin 600 mg 01/08/18 23:45 01/10/18 08:54 Mucinex PO 600 mg BID JOVANNY Administration Potassium Chloride/Sodium Chloride 1,000 mls @ 100 mls/hr 01/08/18 23:45 16:52 Normal Saline 0.9% W/20 Meq Kcl IV 100 mls/hr .Q10H JOVANNY Administration Ceftriaxone Sodium 1 gm/ 100 mls @ 200 mls/hr 01/10/18 10:00 01/10/18 10:50 Sodium Chloride IV Infused Q24H JOVANNY Infusion Ketorolac Tromethamine 15 mg 01/09/18 00:00 01/10/18 12:02 Toradol Inj IVP 01/14/18 00:00 Not Given Q6HR JOVANNY Lactobacillus Rhamnosus 1 cap 01/08/18 23:45 01/10/18 08:53 Culturelle PO 1 cap DAILY JOVANNY Administration Sodium Chloride 10 ml 01/08/18 23:25 01/09/18 02:10 Normal Saline Flush 0.9% IVP 10 ml PRN PRN Administration NEEDED PER PROVIDER ORDERS Sodium Chloride 10 ml 01/09/18 01:00 01/10/18 16:54 Normal Saline Flush 0.9% IVP 10 ml 0100,0900,1700 JOVANNY Administration - Lab Result Lab results reviewed: Yes Fish Bone Diagrams: 01/11/18 11:29 01/11/18 11:29 - EKG Results EKG Interpreted Independently: Yes - Diagnostic Imaging Results Diagnostic Imaging Results: Final report reviewed - Additional Planning Condition/Complexity: Improved My Orders: My Active Orders 01/10/18 09:23 CUL, RESPIRATORY [RM] Routine 01/10/18 10:00 cefTRIAXone [Rocephin] 1 gm Sodium Chloride 0.9% Minibag [Normal Saline 0.9% Minibag] 100 ml IV Q24H Plan Discussed with:: Patient, Spouse Time Spent: 15-30 minutes Subjective - Subjective Patient Reports: Feeling Better Nursing Reports: No Complaints Objective Vital Signs: Vital Signs - 24 hr 01/09/18 01/09/18 01/10/18 23:04 23:35 07:53 Temperature 37.0 C Heart Rate 95 90 Heart Rate [ 95 Brachial] Respiratory 14 18 16 Rate Blood Pressure 93/52 L [Left Brachial artery] O2 Saturation 95 01/10/18 01/10/18 08:02 15:28 Temperature 37.2 C 37.0 C Heart Rate Heart Rate [ 94 83 Brachial] Respiratory 20 18 Rate Blood Pressure 101/60 90/58 L [Left Brachial artery] O2 Saturation 98 100 Oxygen O2 Source Room air I&O (Last 24 Hrs): Intake and Output Totals x24h 01/08/18 01/09/18 01/10/18 23:59 23:59 23:59 Intake Total 1600 2791 3580 Output Total 1200 1000 Balance 1600 1591 2580 General: Alert, Oriented x3, No acute distress HEENT: Atraumatic, PERRLA Neck: Supple, No JVD, No thyromegaly Lymphatic: no adenopathy Neuro: Alert, CN 2-12 Grossly Intact, Oriented Times 3 Cardiovascular: Regular rate, Normal S1, Normal S2 Respiratory: Chest non-tender, No respiratory distress, Rhonchi (right lower lobe) Abdomen: Normal bowel sounds, Soft, No tenderness, No masses Extremities: Normal pulses, Other (BLE trace edema likely related to IVFs and inactivity.) Skin: No rashes, No breakdown, No significant lesion - Results Results: Laboratory Results WBC 11.6 x10^3/uL (4.8-10.8) H 01/10/18 10:21 RBC 3.10 10^6/uL (4.20-5.40) L 01/10/18 10:21 Hgb 9.7 g/dL (12.0-16.0) L 01/10/18 10:21 Hct 28.4 % (37.0-47.0) L 01/10/18 10:21 MCV 91.7 fL (81.0-99.0) 01/10/18 10:21 MCH 31.2 pg (27.0-31.0) H 01/10/18 10:21 MCHC 34.0 g/dL (32.0-36.0) 01/10/18 10:21 RDW 14.2 % (12.0-15.0) 01/10/18 10:21 Plt Count 170 10^3/uL (130-450) 01/10/18 10:21 MPV 7.1 fL (7.9-10.8) L 01/10/18 10:21 Neut # 10.0 10^3/uL (1.5-6.6) H 01/10/18 10:21 Lymph # 0.8 10^3/uL (1.5-3.5) L 01/10/18 10:21 [place] # 0.7 10^3/uL (0.0-1.0) 01/10/18 10:21 Eos # 0.1 10^3/uL (0.0-0.7) 01/10/18 10:21 Baso # 0.0 10^3/uL (0.0-0.1) 01/10/18 10:21 Absolute Nucleated RBC 0.00 x10^3/uL 01/10/18 10:21 Nucleated RBC % 0.0 /100WBC 01/10/18 10:21 Sodium 133 mmol/L (135-145) L 01/10/18 10:21 Potassium 4.3 mmol/L (3.5-5.0) 01/10/18 10:21 Chloride 110 mmol/L (101-111) 01/10/18 10:21 Carbon Dioxide 20 mmol/L (21-32) L 01/10/18 10:21 Anion Gap 3.0 (6-13) L 01/10/18 10:21 BUN 15 mg/dL (6-20) 01/10/18 10:21 Creatinine 0.7 mg/dL (0.4-1.0) 01/10/18 10:21 Estimated GFR (MDRD) 100 (>89) 01/10/18 10:21 Glucose 144 mg/dL (70-100) H 01/10/18 10:21 Lactic Acid 1.4 mmol/L (0.5-2.2) 01/09/18 04:56 Calcium 7.3 mg/dL (8.5-10.3) L 01/10/18 10:21 Magnesium 1.8 mg/dL (1.7-2.8) 01/10/18 10:21 Total Bilirubin 0.6 mg/dL (0.2-1.0) 01/09/18 04:56 AST 25 IU/L (10-42) 01/09/18 04:56 ALT 47 IU/L (10-60) 01/09/18 04:56 Alkaline Phosphatase 97 IU/L (42-121) 01/09/18 04:56 Total Protein 5.5 g/dL (6.7-8.2) L 01/09/18 04:56 Albumin 2.2 g/dL (3.2-5.5) L 01/09/18 04:56 Globulin 3.3 g/dL (2.1-4.2) 01/09/18 04:56 Albumin/Globulin Ratio 0.7 (1.0-2.2) L 01/09/18 04:56 Lipase < 10 U/L (22-51) L 01/08/18 21:39 Urine Color YELLOW 01/08/18 22:10 Urine Clarity CLOUDY (CLEAR) 01/08/18 22:10 Urine pH 6.0 PH (5.0-7.5) 01/08/18 22:10 Ur Specific [place] 1.015 (1.002-1.030) 01/08/18 22:10 Urine Protein 100 mg/dL (NEGATIVE) H 01/08/18 22:10 Urine Glucose (UA) NEGATIVE mg/dL (NEGATIVE) 01/08/18 22:10 Urine Ketones NEGATIVE mg/dL (NEGATIVE) 01/08/18 22:10 Urine Occult Blood MODERATE (NEGATIVE) H 01/08/18 22:10 Urine Nitrite NEGATIVE (NEGATIVE) 01/08/18 22:10 Urine Bilirubin NEGATIVE (NEGATIVE) 01/08/18 22:10 Urine Urobilinogen >=8.0 E.U./dL (NORMAL) H 01/08/18 22:10 Ur Leukocyte Esterase MODERATE (NEGATIVE) H 01/08/18 22:10 Urine RBC 0-5 /HPF (0-5) 01/08/18 22:10 Urine WBC >25 /HPF (0-5) H 01/08/18 22:10 Ur Squamous Epith Cells RARE Squamous (<= Few) 01/08/18 22:10 Urine Bacteria Many /HPF (None Seen) H 01/08/18 22:10 Ur Microscopic Review INDICATED 01/08/18 22:10 Urine Culture Comments INDICATED 01/08/18 22:10 Urine HCG, Qual NEGATIVE 01/08/18 22:10 Urine Opiates Screen POSITIVE (NEGATIVE) H 01/08/18 22:10 Ur Oxycodone Screen POSITIVE (NEGATIVE) H 01/08/18 22:10 Urine Methadone Screen NEGATIVE (NEGATIVE) 01/08/18 22:10 Ur Propoxyphene Screen NEGATIVE (NEGATIVE) 01/08/18 22:10 Ur Barbiturates Screen NEGATIVE (NEGATIVE) 01/08/18 22:10 Ur Tricyclics Screen NEGATIVE (NEGATIVE) 01/08/18 22:10 Ur Phencyclidine Scrn NEGATIVE (NEGATIVE) 01/08/18 22:10 Ur Amphetamine Screen POSITIVE (NEGATIVE) H 01/08/18 22:10 U Methamphetamines Scrn POSITIVE (NEGATIVE) H 01/08/18 22:10 U Benzodiazepines Scrn NEGATIVE (NEGATIVE) 01/08/18 22:10 Urine Cocaine Screen NEGATIVE (NEGATIVE) 01/08/18 22:10 U Cannabinoids Screen NEGATIVE (NEGATIVE) 01/08/18 22:10 Influenza A (Rapid) Negative (Negative) 01/08/18 21:35 Influenza B (Rapid) Negative (Negative) 01/08/18 21:35
[2018-01-10] MEDS: SODIUM CHLORIDE FLUSH 0.9% 10 ML SYRINGE IVP PRN ×2 (18:27→21:06)
[2018-01-11] MEDS: KETOROLAC 15 MG/ML VIAL IVP SCH ×3 (00:54→13:02)
[2018-01-11] MEDS: SODIUM CHLORIDE FLUSH 0.9% 10 ML SYRINGE IVP SCH ×2 (01:57→08:34)
[2018-01-11] MEDS: NS W/20 MEQ KCL 1,000 ML IV SCH (04:22)
[2018-01-11] MEDS: LACTOBACILLUS RHAMNOSUS GG CAPSULE PO SCH (08:33)
[2018-01-11] MEDS: ENOXAPARIN 40 MG/0.4 ML SYRINGE SUBQ SCH (08:33)
[2018-01-11] MEDS: guaiFENesin 600 MG TABLET PO SCH (08:33)
[2018-01-11 08:39] VITALS: BP 106/65
[2018-01-11] MEDS: cefTRIAXone 1 GM in SODIUM CHLORIDE 0.9% MINIBAG 100 ML IV SCH (09:43)
[2018-01-11] MEDS: BUDESONIDE 0.5 MG/2 ML NEB INH SCH (10:30)
[2018-01-11] MEDS: FORMOTEROL FUMARATE NEB 20 MCG/2 ML INH SCH (10:30)
[2018-01-11 11:36] LABS: BASOPHILS % (AUTO) 0.4 %; EOSINOPHILS # (AUTO) 0.1 10^3/uL (0.0-0.7); EOSINOPHILS % (AUTO) 0.8 %; HGB - HEMOGLOBIN 10.7 g/dL (12.0-16.0); LYMPHOCYTES # (AUTO) 1.7 10^3/uL (1.5-3.5); LYMPHOCYTES % (AUTO) 19.7 %; MEAN CORPUSCULAR HEMOGLOBIN 31.5 pg (27.0-31.0); MEAN CORPUSCULAR HGB CONC 34.7 g/dL (32.0-36.0); MEAN CORPUSCULAR VOLUME 90.9 fL (81.0-99.0); MEAN PLATELET VOLUME 7.2 fL (7.9-10.8); MONOCYTES # (AUTO) 0.7 10^3/uL (0.0-1.0); MONOCYTES % (AUTO) 7.6 %; NEUTROPHILS # (AUTO) 6.2 10^3/uL (1.5-6.6); NEUTROPHILS % (AUTO) 71.5 %; PLT - PLATELET COUNT 218 10^3/uL (130-450); RED BLOOD COUNT 3.39 10^6/uL (4.20-5.40); RED CELL DISTRIBUTION WIDTH 14.2 % (12.0-15.0); WHITE BLOOD COUNT 8.6 x10^3/uL (4.8-10.8)
[2018-01-11 11:45] LABS: ALBUMIN/GLOBULIN RATIO 0.5 (1.0-2.2); BILIRUBIN,TOTAL 0.4 mg/dL (0.2-1.0); CALCIUM 7.8 mg/dL (8.5-10.3); CREATININE 0.6 mg/dL (0.4-1.0); TOTAL PROTEIN 5.9 g/dL (6.7-8.2)
--- NOTE | 2018-01-11 11:56 | Discharge Plan ---
Discharge Plan Disposition: 01 Home, Self Care Condition: Good Prescriptions: Amoxicillin/Potassium Clav [Amox Tr-K Clv 875-125 mg Tab] 1 each PO BID 14 Days #28 tablet Fluconazole [Diflucan] 150 mg PO DAILY #2 tablet Lactobacillus Rhamnosus GG [Culturelle] 1 cap PO DAILY #28 capsule traMADol [Ultram] 50 mg PO Q4-6H #10 tablet Diet: Regular Activity Restrictions: Activity as Tolerated Shower Restrictions: No Driving Restrictions: No Weight Bearing: Full Weight Additional Instructions or Follow Up instructions: You were found to have a severe case of a left sided kidney infection and were given IV antibiotics and IVFs. Also, you had pneumonia in both lungs. You will need follow up imaging for known left ovarian cyst since it was called (hemorrhagic) in the CT report. You will need a pelvic ultrasound in about 6 weeks to make sure this has resolved. You said that you have had this since you were very young. A low density cystic mass was seen on the head of the pancreas, so a 1-year follow up exam such as an MRI is recommended. A right lower lung lobe opacity (spot) may have been from your pneumonia, or a previous scar, or something more worrisome is suspected. A repeat CT scan is recommended after you finish your antibiotics. Take all of your antibiotics as prescribed and I have given you a small amount of tramadol to help out with your ongoing left flank pain caused by the kidney infection. I have also sent something for a possible vaginal yeast infection that may occur from taking your antibiotics. Take a probiotic for double the amount of time of your antibiotics (~28 days). This will prevent diarrhea. Make sure to keep getting lots of rest and drink extra water. Please see a doctor or mid-level provider at the [facility] within 1 week as a follow up to this hospital stay. No Smoking: If you smoke, Please STOP! Call for help.
--- NOTE | 2018-01-11 12:05 | DISCHARGE SUMMARY ---
Discharge Summary Admit Date: 01/08/18 Discharge Date: 01/11/18 Discharging Provider: MELANI Minor Primary Care Provider: Gilberto [facility] Code Status: Attempt Resuscitation Condition at Discharge: Good Discharge Disposition: 01 Home, Self Care - DIAGNOSES Admission Diagnoses: Sepsis, unspecified organism (A41.9) Pyelonephritis (N12) PNA (pneumonia) (J18.9) Substance abuse (F19.10) Acidosis (E87.2) Electrolyte abnormality (E87.8) Discharge Diagnoses with Status of Each Condition: Pyelonephritis (N12)- improved, treatment to continue. Substance abuse (F19.10)- chronic, stable, no evidence of abuse while hospitalized. Electrolyte abnormality (E87.8)- resolved. PNA (pneumonia) (J18.9)- improved, treatment to continue. - HPI History of Present Illness: Lizett Sr is a 27-year old female with a past medical history of a recent ED evaluation for pleuritic chest pain, asthma, status post cholecystectomy, remote amphetamine/methamphetamine abuse, and dental caries. She presented again to the ED with pleuritic chest pain today, but also was noted to have complaints of a fever, headache, left sided back & flank pain, and abdominal pain. She was found to have an acute UTI via UA, elevated lactic acid at 4.1, low potassium at 3.3, elevated WBC count at 13.4, a positive urine drug screen showing opiates, oxycodone, amphetamine and methamphetamines, and a grossly abnormal abdominal/pelvic CT scan. The patient will be admitted to inpatient for pyelonephritis, sepsis, and symptom management. - HOSPITAL COURSE Hospital Course: The following diagnoses were prevalent during this hospital stay: (1) Escherichia coli urinary tract infection- Patient presented with flank/ back pain located more to the left side and this is greatly improved. She continued to deny dysuria, hematuria, or urinary incontinence. When she presented to the ED, she appeared quite ill, and continues to appear fatigued. She did not made extra attempts to ambulate. She denied nausea or vomiting. The patient's urine out put was monitored, her symptoms were treated and she was continued on IV antibiotics that were changed to an oral form for discharge home. Blood cultures remained negative. (2) Pneumonia- Patient continues to appear ill with very low energy. She denies a productive cough. Coarse crackles can be heard bilaterally. Patient has been afebrile. The patient was continued on IV antibiotics that was changed to PO form at the time of discharge. She was encouraged to perform incentive spirometry several times daily. (3) Substance abuse- Patient has very poor dentition with very few teeth. This is likely related to prolonged drug abuse. Her boyfriend was present for most daily exams and appeared calm and supportive. The patient was monitored for suspicious visitors, which there have not been reports of as per nursing. (4) Electrolyte abnormality- Upon admission the patient was found to be hyponatremic with a sodium only 127, that has improved to 133. She was also noted to be hypokalemic with a potassium of 3.3, that has improved to 4.3. Both of these abnormalities can be explained by the primary disease process of a complicated UTI. The patient did not have signs of confusion and her oral intake gradually improved. The patient was monitored throughout her stay and electrolytes were replaced as needed. Disposition: The patient was discharged home with boyfriend in stable condition and agreed to have prompt PCP follow up and to continue antibiotics. CT scan results were also reviewed with her as to appropriate repeat imaging and /or follow ups. - ALLERGIES Allergies/Adverse Reactions: Allergies Allergy/AdvReac Type Severity Reaction Status Date / Time No Known Drug Allergies Allergy Verified 01/06/18 22:57 - MEDICATIONS Home Medications: Ambulatory Orders Medication Instructions Recorded Confirmed Amoxicillin/Potassium Clav [Amox 1 each PO BID 14 Days #28 tablet 01/11/18 Tr-K Clv 875-125 mg Tab] Fluconazole [Diflucan] 150 mg PO DAILY #2 tablet 01/11/18 Lactobacillus Rhamnosus GG 1 cap PO DAILY #28 capsule 01/11/18 [Culturelle] traMADol [Ultram] 50 mg PO Q4-6H #10 tablet 01/11/18 - PHYSICAL EXAM AT DISCHARGE General Appearance: positive: No acute distress, Alert Eyes Bilateral: positive: Normal inspection, PERRL, EOMI ENT: positive: ENT inspection nml, Pharynx nml, No signs of dehydration Neck: positive: Nml inspection, Thyroid nml, No JVD, Trachea midline Respiratory: positive: Chest non-tender, No respiratory distress, Rhonchi Cardiovascular: positive: Regular rate & rhythm, No murmur, No gallop Peripheral Pulses: positive: 2+ Abdomen: positive: Non-tender, No organomegaly, Nml bowel sounds Back: positive: CVA tenderness (L) Skin: positive: No rash, Warm, Dry Extremities: positive: Non-tender, Full ROM, Nml appearance, Pedal edema (trace) Neurologic/Psychiatric: positive: Oriented x3, CN's nml (2-12), Motor nml, Sensation nml, Depressed mood/affect Reflexes: Bicep (R): 3+, Bicep (L): 3+ - LABS Result Diagrams: 01/11/18 11:29 01/11/18 11:29 - DIAGNOSTIC IMAGING Diagnostic Imaging Results: Final report reviewed Diagnostic Imaging Results Comments: EXAM: CT ABDOMEN AND PELVIS EXAM DATE: 01/08/2018 10:58 PM. CLINICAL HISTORY: Left abdominal pain. COMPARISONS: None. TECHNIQUE: Routine helical CT imaging was performed through the abdomen and pelvis. IV contrast: 100 mL Isovue 300. Enteric contrast: No. Reconstructions: Coronal and sagittal. In accordance with CT protocol optimization, one or more of the following dose reduction techniques were utilized for this exam: automated exposure control, adjustment of mA and/or KV based on patient size, or use of iterative reconstructive technique. FINDINGS: Lung Bases: Small focal irregular consolidated opacity seen medially in the right lower lobe measuring 2.2 x 2.3 cm. Mild hazy opacity seen posteriorly in the bilateral lower lobes, could be atelectasis. Minimal irregular opacities in the right middle lobe and lingula. Mild intrahepatic bile duct dilatation. The gallbladder has been removed. The common duct is mildly dilated at 9 mm, tapers at the distal aspect. No focal liver lesions are seen. Low-density cystic mass seen at the head of the pancreas measuring 8 x 12 mm. A one-year follow-up exam such as an MR pancreatic mass protocol could be obtained to confirm stability. Spleen: Unremarkable. Adrenals: Unremarkable. Enlarged left kidney with multiple areas of ill-defined hypodensities consistent with severe acute left pyelonephritis. No definite abscess is seen. No hydronephrosis. Adjacent stranding. The right kidney appears unremarkable. Bowel: No acute bowel findings are seen. The appendix is not definitely seen. Minimal free fluid in the posterior cul-de-sac. Pelvis: The bladder is not fully distended which limits evaluation. The uterus is retroverted. There appears to be a left hemorrhagic ovarian cyst measuring 3.4 x 2.6 cm. Vascular Structures: No acute findings. Bones: No acute bone findings. IMPRESSION: 1. Small focal irregular consolidated opacity seen medially in the right lower lobe measuring 2.2 x 2.3 cm. This could represent pneumonia versus scarring. Irregular malignant nodule is not completely excluded and follow-up is recommended. Mild hazy opacity seen posteriorly in the bilateral lower lobes, could be atelectasis. Minimal irregular opacities in the right middle lobe and lingula, could represent atelectasis or scarring. 2. Mild intrahepatic bile duct dilatation. The gallbladder has been removed. The common duct is mildly dilated at 9 mm, tapers at the distal aspect. 3. Low-density cystic mass seen at the head of the pancreas measuring 8 x 12 mm. A one-year follow-up exam such as an MR pancreas mass protocol can be obtained to confirm stability. 4. Enlarged left kidney with multiple areas of ill-defined hypodensities consistent with severe acute left pyelonephritis. 5. There appears to be a left hemorrhagic ovarian cyst measuring 3.4 x 2.6 cm. Recommend follow-up pelvic ultrasound in 6 weeks to ensure resolution. 6. Minimal free fluid in the posterior cul-de-sac. 7. Otherwise, as above. - FOLLOW UP Follow Up: Disposition: 01 Home, Self Care Condition: Good Prescriptions: Amoxicillin/Potassium Clav [Amox Tr-K Clv 875-125 mg Tab] 1 each PO BID 14 Days #28 tablet Fluconazole [Diflucan] 150 mg PO DAILY #2 tablet Lactobacillus Rhamnosus GG [Culturelle] 1 cap PO DAILY #28 capsule traMADol [Ultram] 50 mg PO Q4-6H #10 tablet Diet: Regular Activity Restrictions: Activity as Tolerated Shower Restrictions: No Driving Restrictions: No Weight Bearing: Full Weight Additional Instructions or Follow Up instructions: You were found to have a severe case of a left sided kidney infection and were given IV antibiotics and IVFs. Also, you had pneumonia in both lungs. You will need follow up imaging for known left ovarian cyst since it was called (hemorrhagic) in the CT report. You will need a pelvic ultrasound in about 6 weeks to make sure this has resolved. You said that you have had this since you were very young. A low density cystic mass was seen on the head of the pancreas, so a 1-year follow up exam such as an MRI is recommended. A right lower lung lobe opacity (spot) may have been from your pneumonia, or a previous scar, or something more worrisome is suspected. A repeat CT scan is recommended after you finish your antibiotics. Take all of your antibiotics as prescribed and I have given you a small amount of tramadol to help out with your ongoing left flank pain caused by the kidney infection. I have also sent something for a possible vaginal yeast infection that may occur from taking your antibiotics. Take a probiotic for double the amount of time of your antibiotics (~28 days). This will prevent diarrhea. Make sure to keep getting lots of rest and drink extra water. Please see a doctor or mid-level provider at the [facility] within 1 week as a follow up to this hospital stay. - TIME SPENT Time Spent in Discharge (Minutes): 50
== END 2018-01-11 13:00 | disposition home or self-care (01) | DRG 689 ==
LOC: ED 21:09 → MS3 23:25
PROVIDERS: ADMIT Internal Medicine; ATTEND Nurse Practitioner
DX: N10 Acute pyelonephritis (principal); J18.9 Pneumonia, unspecified organism; E87.2 Acidosis; E87.1 Hypo-osmolality and hyponatremia; E87.6 Hypokalemia; B96.20 Unspecified Escherichia coli [E. coli] as the cause of diseases classified elsewhere; I95.9 Hypotension, unspecified; K02.9 Dental caries, unspecified; D64.9 Anemia, unspecified; J45.909 Unspecified asthma, uncomplicated; F17.210 Nicotine dependence, cigarettes, uncomplicated; F15.10 Other stimulant abuse, uncomplicated; F19.10 Other psychoactive substance abuse, uncomplicated; Z90.49 Acquired absence of other specified parts of digestive tract
CPT/HCPCS: 36415; 74177; 80048; 80053; 80306; 81001; 81003; 81025; 83605; 83690; 83735; 85025; 87040; 87077; 87086; 87275; 87276; 94640; 96361; 96365; 96375; 99284; 99291

== ENCOUNTER 2018-03-22 20:32 | Emergency (ER) | payer MEDICAID ==
--- NOTE | 2018-03-22 20:46 | ED Physician Documentation ---
PD HPI DYSPNEA - Stated complaint Stated Complaint: SOA - Chief complaint Chief Complaint: Resp - History obtained from History obtained from: Patient - History of Present Illness Timing - onset: How many days ago (has had wheezing and cough for several days to a week. Using Albuterol MDI often with temporary improvement. Ran out of MDI today. Having worse breathing. Has cough with some clear sputum.) Timing - onset during: Light activity Timing - duration: Days (but worse today) Timing - details: Gradual onset, Still present Inciting event(s): Out of meds (albuterol inhaler), URI Worsened by: Exertion, Coughing Associated symptoms: Cough, Wheezing, Chest pain / discomfort (sternal area with cough). No: Palpitations Review of Systems Constitutional: reports: Chills, Myalgias, Fatigue. denies: Fever Nose: reports: Congestion. denies: Rhinorrhea / runny nose Throat: denies: Sore throat Cardiac: reports: Chest pain / pressure. denies: Palpitations Respiratory: reports: Dyspnea, Cough, Wheezing GI: denies: Nausea, Vomiting, Diarrhea : denies: Dysuria, Frequency Skin: denies: Rash, Lesions Musculoskeletal: denies: Extremity swelling Neurologic: reports: Generalized weakness. denies: Focal weakness, Numbness PD PAST MEDICAL HISTORY - Past Medical History Cardiovascular: None Respiratory: Asthma Endocrine/Autoimmune: None GI: None : None HEENT: None Psych: None Musculoskeletal: None Derm: None - Past Surgical History Past Surgical History: Yes General: Cholecystectomy Ortho: Other - Present Medications Home Medications: Ambulatory Orders Medication Instructions Recorded Confirmed Amoxicillin/Potassium Clav [Amox 1 each PO BID 14 Days #28 tablet 01/11/18 Tr-K Clv 875-125 mg Tab] Fluconazole [Diflucan] 150 mg PO DAILY #2 tablet 01/11/18 Lactobacillus Rhamnosus GG 1 cap PO DAILY #28 capsule 01/11/18 [Culturelle] traMADol [Ultram] 50 mg PO Q4-6H #10 tablet 01/11/18 Albuterol Sulf [Ventolin Hfa 1 - 2 puffs INH Q4HR PRN #1 inhaler 03/22/18 Inhaler] Dexamethasone [Decadron] 4 mg PO DAILY #5 tablet 03/22/18 Doxycycline Monohydrate 100 mg PO BID #14 tablet 03/22/18 - Allergies Allergies/Adverse Reactions: Allergies Allergy/AdvReac Type Severity Reaction Status Date / Time No Known Drug Allergies Allergy Verified 03/22/18 20:37 - Social History Does the pt smoke?: Yes Smoking Status: Current every day smoker Does the pt drink ETOH?: Yes Does the pt have substance abuse?: No - Immunizations Immunizations are current?: Yes - POLST Patient has POLST: No PD ED PE NORMAL - Vitals Vital signs reviewed: Yes - General General: Alert and oriented X 3, Well developed/nourished, Other (concentrated on breathing, but no accessory muscle use. ) - HEENT HEENT: Ears normal, Pharynx benign - Neck Neck: Supple, no meningeal sign, No adenopathy - Cardiac Cardiac: RRR (some tachycardia), No murmur - Respiratory Respiratory: No: Clear bilaterally (concentrated on breathing but not appearing to have work of breathing per se. Diffuse moderate wheezing, and some central coarse sounds. ) - Abdomen Abdomen: Soft, Non tender - Derm Derm: Normal color, Warm and dry - Extremities Extremities: No deformity, No tenderness to palpate - Neuro Neuro: Alert and oriented X 3, No motor deficit, Normal speech Results - Vitals Vitals: Vital Signs - 24 hr 03/22/18 03/22/18 03/22/18 20:33 21:09 21:30 Temperature 36.9 C Heart Rate 102 H 96 96 Respiratory 19 18 20 Rate Blood Pressure 130/96 H O2 Saturation 94 03/22/18 03/22/18 21:31 22:45 Temperature Heart Rate 107 H 106 H Respiratory 18 18 Rate Blood Pressure 129/97 H 125/95 H O2 Saturation 98 93 Oxygen O2 Source Room air - Rads (name of study) chest Radiology: Other (she left prior to CXR being obtained. ) PD MEDICAL DECISION MAKING - ED course Complexity details: re-evaluated patient (improving stepwise with nebulizers. Was going to give another and get CXR (Project Management had several orders to do ahead) and patient left. Will have nurses call her to find out where she would like Rxs sent as she left prior to my printing them.), considered differential, d/w patient - Sepsis Event Vital Signs: Vital Signs - 24 hr 03/22/18 03/22/18 03/22/18 20:33 21:09 21:30 Temperature 36.9 C Heart Rate 102 H 96 96 Respiratory 19 18 20 Rate Blood Pressure 130/96 H O2 Saturation 94 03/22/18 03/22/18 21:31 22:45 Temperature Heart Rate 107 H 106 H Respiratory 18 18 Rate Blood Pressure 129/97 H 125/95 H O2 Saturation 98 93 Oxygen O2 Source Room air Departure - Departure Disposition: 01 Home, Self Care Clinical Impression: Bronchitis Acute asthma exacerbation Qualifiers: Asthma severity: moderate Asthma persistence: unspecified Qualified Code(s): J45.901 - Unspecified asthma with (acute) exacerbation Dyspnea Qualifiers: Dyspnea type: shortness of breath Qualified Code(s): R06.02 - Shortness of breath Condition: Stable Record reviewed to determine appropriate education?: Yes Instructions: ED Upper Resp Infec Abx Tx, ED Bronchitis Asthmatic Prescriptions: Albuterol Sulf [Ventolin Hfa Inhaler] 1 - 2 puffs INH Q4HR PRN #1 inhaler PRN Reason: Shortness Of Air/Wheezing Dexamethasone [Decadron] 4 mg PO DAILY #5 tablet Doxycycline Monohydrate 100 mg PO BID #14 tablet Comments: Drink lots of fluids. Try to quit smoking. Use albuterol inhaler 2 puffs 4 times a day at least and extra times as needed for wheezing. Decadron steroid anti-inflammatory for 5 more days. Doxycycline twice daily for presumed infection. Recheck if not improving over the next few days. Discharge Date/Time: 03/22/18 23:00
[2018-03-22] MEDS ORDERED: ALBUTEROL NEB 2.5 MG/3 ML INH STA ×2 (20:54→21:23)
[2018-03-22] MEDS ORDERED: CETIRIZINE 10 MG TABLET PO STA (20:54)
[2018-03-22] MEDS ORDERED: DOXYCYCLINE 100 MG TABLET PO STA (20:54)
[2018-03-22] MEDS ORDERED: DEXAMETHASONE 10 MG/ML VIAL PO STA (20:54)
[2018-03-22] MEDS ORDERED: IPRATROPIUM/ALBUTEROL 3 ML NEB INH STA (22:36)
[2018-03-22 22:46] VITALS: BP 125/95
== END 2018-03-22 23:00 | disposition home or self-care (01) ==
LOC: ED 20:32
DX: J40 Bronchitis, not specified as acute or chronic (principal); J45.901 Unspecified asthma with (acute) exacerbation; Z72.0 Tobacco use; Z79.51 Long term (current) use of inhaled steroids
CPT/HCPCS: 71046; 94640; 99283; A9270

== ENCOUNTER 2018-12-16 06:31 | Observation (INO) | payer MEDICAID ==
[2018-12-16] MEDS ORDERED: IPRATROPIUM/ALBUTEROL 3 ML NEB INH STA (06:46)
[2018-12-16] MEDS ORDERED: BENZONATATE 100 MG CAPSULE PO STA (06:50)
[2018-12-16] MEDS ORDERED: DEXAMETHASONE 10 MG/ML VIAL PO STA (06:50)
--- NOTE | 2018-12-16 07:03 | ED Physician Documentation ---
History of Present Illness - Stated complaint Stated Complaint: SOA - Chief complaint Chief Complaint: Resp - History obtained from History obtained from: Patient - Additonal information Additional information: Patient is a 28-year-old female with history of asthma presenting with worsening asthma symptoms over the past several days. Patient reports that she ran out of her inhaler about 2 days ago. Patient does not use nebulizer treatments at home. Patient does have a remote history of hospitalization and intubation for her asthma as a child. Patient denies other symptoms besides shortness of breath, cough, and wheezing such as fever, chills, URI symptoms, abdominal complaints, rash, or other concerns. Patient does not note specific improving or worsening factors to her symptoms. Review of Systems Respiratory: reports: Dyspnea, Cough PD PAST MEDICAL HISTORY - Past Medical History Past Medical History: Yes Cardiovascular: None Respiratory: Asthma Endocrine/Autoimmune: None GI: None : None HEENT: None Psych: None Musculoskeletal: None Derm: None - Past Surgical History Past Surgical History: Yes General: Cholecystectomy Ortho: Other - Present Medications Home Medications: Ambulatory Orders Medication Instructions Recorded Confirmed Albuterol Sulf [Ventolin Hfa 1 - 2 puffs INH Q4HR PRN #1 inhaler 03/22/18 Inhaler] Methadone 70 mg PO DAILY 12/16/18 12/16/18 - Allergies Allergies/Adverse Reactions: Allergies Allergy/AdvReac Type Severity Reaction Status Date / Time No Known Drug Allergies Allergy Verified 12/16/18 06:50 - Social History Does the pt smoke?: No Smoking Status: Former smoker Does the pt drink ETOH?: No Does the pt have substance abuse?: No - Immunizations Immunizations are current?: No Immunizations: TDAP >10years/unknown - POLST Patient has POLST: No PD ED PE NORMAL - General General: Alert and oriented X 3, Well developed/nourished (Dry cough present, uncomfortable appearing. Speaking in full sentences and able to move on the bed without issue.) - HEENT HEENT: Atraumatic, Moist mucous membranes, Pharynx benign - Cardiac Cardiac: RRR, No murmur - Respiratory Respiratory: Other (No significant respiratory distress. No accessory muscle use or tripoding. Decreased air movement throughout with loud expiratory wheezi ng) - Abdomen Abdomen: Soft, Non tender, Non distended - Derm Derm: Normal color, Warm and dry, No rash - Extremities Extremities: No deformity - Neuro Neuro: Alert and oriented X 3, Normal speech - Psych Psych: Normal mood, Normal affect Results - Vitals Vitals: Vital Signs - 24 hr 12/16/18 12/16/18 12/16/18 06:38 06:41 06:47 Temperature 36.4 C L Heart Rate 110 H Respiratory 22 Rate Blood Pressure 125/67 O2 Saturation 91 L 90 L 85 L 12/16/18 12/16/18 12/16/18 06:48 06:49 06:55 Temperature Heart Rate 109 H 104 H Respiratory 22 Rate Blood Pressure O2 Saturation 85 L 89 L 12/16/18 12/16/18 12/16/18 06:58 07:09 08:03 Temperature Heart Rate 102 H 116 H 106 H Respiratory 20 15 Rate Blood Pressure 121/71 O2 Saturation 93 90 L 12/16/18 12/16/18 08:30 08:53 Temperature Heart Rate 104 H 101 H Respiratory 16 15 Rate Blood Pressure 114/70 O2 Saturation 87 L Oxygen O2 Source Nasal cannula Oxygen Flow Rate 2 - Labs Labs: Laboratory Tests 12/16/18 12/16/18 12/16/18 08:00 09:32 09:32 WBC 11.8 H RBC 4.02 L Hgb 12.6 Hct 37.5 MCV 93.4 MCH 31.5 H MCHC 33.7 RDW 13.5 Plt Count 289 MPV 6.4 L Neut # (Auto) 11.0 H Lymph # (Auto) 0.4 L Burke # (Auto) 0.2 Eos # (Auto) 0.1 Baso # (Auto) 0.0 Absolute Nucleated RBC 0.00 Nucleated RBC % 0.0 Sodium 130 L Potassium 3.7 Chloride 99 L Carbon Dioxide 23 Anion Gap 8.0 BUN 9 Creatinine 0.6 Estimated GFR (MDRD) 119 Glucose 139 H Calcium 8.1 L Influenza A (Rapid) Negative Influenza B (Rapid) Negative PD MEDICAL DECISION MAKING - ED course Complexity details: reviewed results, re-evaluated patient, considered differential, d/w patient, d/w consultant electronics ED course: Most concerning for asthma exacerbation given patient's history of asthma, symptoms, and physical exam findings.Patient currently afebrile and with slight tachycardia, although vital signs otherwise within normal limits. Patient was initially started by off going ED physician as this was a transition of shift. Patient received several medications including albuterol inhaler prior to my evaluation. Patient reports that these had began to help, but not fully improved her symptoms. Given patient's physical exam findings and my concerns, start patient on multiple additional albuterol nebulizers, as well as received Solu-Medrol and magnesium. Patient continued to be monitored. However, do not feel that she is at high risk for pneumonia, PE, cardiac etiologies, other sy stemic illness and do not feel she requires invasive testing or imaging at this time.Patient symptoms continue to improve, however, her hypoxia did not. It was difficult to wean patient down from 5 L of oxygen despite removing her fake nails and giving an additional albuterol treatment. Given this persistent hypoxia also obtained flu swab, which returned unremarkable. Also obtain chest x-ray which returned unremarkable for possible right lower lobe pneumonia.Obtained additional blood work and cultures, as well as starting antibiotics. Given her persistent hypoxia, felt appropriate to admit and spoke with hospitalist, who agrees. Patient also agreeable to this plan. Departure - Departure Disposition: [facility] DC/Xfer Clinical Impression: Asthma exacerbation Qualifiers: Asthma severity: moderate Asthma persistence: persistent Qualified Code(s): J45.41 - Moderate persistent asthma with (acute) exacerbation Pneumonia Qualifiers: Pneumonia type: due to unspecified organism Laterality: right Lung location: lower lobe of lung Qualified Code(s): J18.1 - Lobar pneumonia, unspecified organism
[2018-12-16] MEDS ORDERED: ALBUTEROL NEB 2.5 MG/3 ML INH STA ×2 (07:09→08:02)
[2018-12-16] MEDS ORDERED: MAGNESIUM SULFATE 2 GRAM 2 GM/50 ML BAG IV ONE (07:09)
[2018-12-16] MEDS ORDERED: methylPREDNISolone SUCCINATE 125 MG/2 ML VIAL IVP STA (07:09)
--- NOTE | 2018-12-16 09:03 | XRAY Report ---
Reason: cough Procedure Date: 12/16/2018 Accession Number: [id number] / [id number] Procedure: XR - Chest 2 View X-Ray CPT Code: 58936 FULL RESULT: EXAM: CHEST RADIOGRAPHY EXAM DATE: 12/16/2018 08:55 AM. CLINICAL HISTORY: Cough. COMPARISON: CHEST 2 VIEW 01/07/2018 2:52 AM. TECHNIQUE: 2 views. FINDINGS: Lungs/Pleura: There is new hazy opacity in the lingula and right lower lung. No effusion or extra ventilatory air. Upper lungs are clear. Mediastinum: Heart and mediastinal contours are unremarkable. Other: None. IMPRESSION: New nonspecific hazy opacity in the lingula and right lower lung. In the right clinical context this could indicate early pneumonia. RADIA
[2018-12-16] MEDS ORDERED: AZITHROMYCIN INJ 500 MG in SODIUM CHLORIDE 0.9% 250 ML IV STA (09:20)
[2018-12-16] MEDS ORDERED: cefTRIAXone 1 GM in SODIUM CHLORIDE 0.9% MINIBAG 100 ML IV STA (09:20)
[2018-12-16 09:45] LABS: BASOPHILS % (AUTO) 0.1 %; EOSINOPHILS # (AUTO) 0.1 10^3/uL (0.0-0.7); EOSINOPHILS % (AUTO) 0.6 %; HGB - HEMOGLOBIN 12.6 g/dL (12.0-16.0); LYMPHOCYTES # (AUTO) 0.4 10^3/uL (1.5-3.5); LYMPHOCYTES % (AUTO) 3.6 %; MEAN CORPUSCULAR HEMOGLOBIN 31.5 pg (27.0-31.0); MEAN CORPUSCULAR HGB CONC 33.7 g/dL (32.0-36.0); MEAN CORPUSCULAR VOLUME 93.4 fL (81.0-99.0); MEAN PLATELET VOLUME 6.4 fL (7.9-10.8); MONOCYTES # (AUTO) 0.2 10^3/uL (0.0-1.0); NEUTROPHILS % (AUTO) 93.7 %; PLT - PLATELET COUNT 289 10^3/uL (130-450); RED BLOOD COUNT 4.02 10^6/uL (4.20-5.40); RED CELL DISTRIBUTION WIDTH 13.5 % (12.0-15.0); WHITE BLOOD COUNT 11.8 x10^3/uL (4.8-10.8)
[2018-12-16 09:53] LABS: CALCIUM 8.1 mg/dL (8.5-10.3); CREATININE 0.6 mg/dL (0.4-1.0)
[2018-12-16] MEDS ORDERED: ONDANSETRON 4 MG/2 ML VIAL IVP PRN (11:50)
[2018-12-16] MEDS ORDERED: oxyCODONE 5 MG TABLET PO PRN (11:50)
[2018-12-16] MEDS ORDERED: ONDANSETRON ODT 4 MG TABLET TL PRN (11:50)
[2018-12-16] MEDS ORDERED: ACETAMINOPHEN 325 MG TABLET PO PRN (11:50)
[2018-12-16] MEDS ORDERED: SODIUM CHLORIDE FLUSH 0.9% 10 ML SYRINGE IVP PRN (11:50)
[2018-12-16] MEDS: SODIUM CHLORIDE 0.9% 1,000 ML IV SCH ×2 (13:18→22:34)
[2018-12-16] MEDS: ALBUTEROL NEB 2.5 MG/3 ML INH SCH ×3 (13:39→22:00)
[2018-12-16] MEDS: SODIUM CHLORIDE FLUSH 0.9% 10 ML SYRINGE IVP SCH (17:19)
[2018-12-16] MEDS: SACCHAROMYCES BOULARDII 250 MG CAPSULE PO SCH (17:19)
--- NOTE | 2018-12-16 20:56 | HISTORY & PHYSICAL EXAMINATION ---
DATE OF SERVICE: 12/16/2018 Physician: Kristal Escobar MD PRIMARY CARE PROVIDER: Patient has none. ADMITTING PROVIDER: Kristal Escobar MD CHIEF COMPLAINT: Cough, wheezing, in a patient who has asthma. HISTORY OF PRESENT ILLNESS: She is a young white female who has a history of IV heroin use, is on methadone. Last use of heroin was a week ago. She has lifelong asthma since childhood. Unfortunately, she controls her asthma by coming to the emergency room or emergency rooms in the area to get refills on inhalers since she does not have a regular primary care provider. She says that she was given a long-acting bronchodilator many years ago. Once it ran out, she never received it again. The last time she saw a primary care provider was over 2 years ago. She is willing to see a primary care provider, but it has not been easy to get into the clinic down in [place]. She ran out of the inhaler she had left 2 days ago. With that, her wheezing got steadily worse. She began coughing, nonproductive. She has no fever, chills, chest congestion. She does not have a runny nose, sore throat, eustachian tube dysfunction. No new GI complaints. No body rashes. As her asthma got suddenly worse, she started getting a little frightened and came to the emergency room. She was seen by Dr. Miranda. She was definitely with asthma exacerbation, received albuterol, steroids, but was persistently hypoxic. She is 85% on room air. Takes 2 liters to bring her up above 92%. Chest x-ray shows her to have early infiltrate, right middle lobe and right lower lobe. She is now brought in for observation, to see if we can control her wheezing symptoms and start treatment for pneumonia. PAST MEDICAL HISTORY 1. Asthma since childhood. 2. G2, P1-0-1-1. 3. Cholecystectomy for gallstones. 4. Wrist surgery. 5. Kidney infections with hospitalization. 6. Depression with anxiety. Never on treatment. ALLERGIES: NO KNOWN DRUG ALLERGIES. MEDICATIONS ON ADMISSION 1. Albuterol HFA inhaler p.r.n. daily, ran out 2 days ago. 2. Methadone. SOCIAL HISTORY: She is from the [facility]. Has been living on the [place] with her boyfriend at her boyfriend's parents house for over 2-1/2 years now. She is unemployed. She started smoking at the age of 17, and smokes half a pack per day. Quit a week ago. She is on methadone for heroin abuse. She would like to have a records release, so that she can prove to her clinic that she missed her appointment for a good reason. Last use of heroin was a week ago. She is not on disability. FAMILY HISTORY: She is an adopted child and does not know her parents. She does have a brother who is healthy. One child not in her custody is healthy. REVIEW OF SYSTEMS CONSTITUTIONAL COMPLAINTS: There are no fevers, chills, sweats, unexpected weight changes. ENT: Denies presbyopia, strabismus, blurred vision. She has no problems with hearing. No problems with swallowing. PULMONARY: Asthma as above. CARDIAC: Denies valvular heart disease, palpitations, edema, orthopnea or change in cardiovascular endurance. GASTROINTESTINAL: Denies abdominal pain, nausea, emesis. She has no change in bowel habits. No blood in her stool. No diarrhea. GENITOURINARY: Denies vaginal discharge that is unusual. No pelvic pain. No urgency, frequency, dysuria. No flank pain. JOINTS: No problems with elbows, wrist, hips, knees, or ankles. No fusions. SKIN: No new body rashes. No lesions. No pruritus. PSYCHIATRIC: Anxiety and depression are constant and chronic, but she does not take any medication for it. Denies suicidal or homicidal ideation. Denies hallucinations or delusions. CENTRAL NERVOUS SYSTEM: Denies headaches, syncope, seizures. No memory changes. No cognitive changes. PREVIOUS LEVEL OF FUNCTION: She is completely independent with activities of daily living. 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 She does not have a car, but is able to drive if she needed to. She does not use any durable medical equipment. PHYSICAL EXAMINATION GENERAL: On examination, she s a slender white female, looks stated age, very quiet affect, "I can't wait to get out of here." VITAL SIGNS: Temperature is 37.1, pulse 99, blood pressure 90/74, respirations 20 and unlabored. On 8-liter Oxymizer, she is 93%. On room air, she is 85%. HEENT: Poor dentition, muddy sclerae. Pupils reactive. Facial symmetry is normal. Tongue midline. Speech: Normal. Back of throat is normal. NECK: Supple with shotty anterior cervical adenopathy. No goiter, bruits. LUNGS: Have diffuse scattered wheezing. There is no increased use of respiratory accessory muscles. No rhonchi. No crackles. No dullness. No egophony. HEART: PMI is normally placed with a slightly tachycardic regular rate and rhythm. No murmurs, rubs or gallops. ABDOMEN: Soft, nontender. Normal bowel sounds. No organomegaly. EXTREMITIES: Warm. No clubbing, cyanosis or edema. NEUROLOGIC: She is alert and oriented to person, place and time. Upper and lower extremity strength testing is normal and symmetrical. There are no tremors. No ataxia. On her own, she is able to come to a sitting position and transition to a standing position without any assist or effort. Cranial nerves 2-12 appear grossly intact. LABORATORY DATA: Sodium 130, potassium 3.7, chloride 99, BUN 9, creatinine 0.6, glucose 139. Lactic acid 1.9. HCG quantitative is less than 0.6. White cell count 11.8, hemoglobin 12.6, hematocrit 37.5, platelet 289,000. Influenza A and B are negative. Chest x-ray has new nonspecific hazy opacity in the lingula and right lower lung in comparison to the chest x-ray 01/07/2018. ASSESSMENT/PLAN 1. Status asthmaticus. Plan: observation status Attestation that the patient will be admitted for less than 96 hours. Currently responding to nebulizers and steroids. Will continue the same. Will also add long-acting bronchodilator and long-acting inhaled steroid. In the outpatient setting, I will prescribe whatever Medicaid covers. I will also refill her albuterol. 2. Lack of primary care services. Will discuss with case management in the morning. They are gone for the afternoon. If given the choice of driving to [place] or getting on the [place] and going to the [facility], she prefers going to the [facility] since it easier to get to the [facility]. 3. Pneumonia on chest x-ray in the face of status asthmaticus. Rocephin and azithromycin prescribed. 4. Hypoxia in a patient with pneumonia. Cardiac exam is normal. There are no murmurs. She has no fevers, sweats or constitutional complaints. As such, I think her hypoxia is straightforward from the asthma and her pneumonia, and not due to any cardiac disease such as valvular heart disease. 5. Opiate abuse. The patient is on a methadone program. I have given her the records release form for her to send to HIM so that they can confirm she was in the hospital while missing her methadone clinic appointment. 6. FULL CODE STATUS. 7. Deep venous thrombosis prophylaxis with THOMPSON meléndez. TD: 12/16/2018 17:42 MTDD
[2018-12-16] MEDS: FORMOTEROL FUMARATE NEB 20 MCG/2 ML INH SCH (22:00)
[2018-12-16] MEDS: BUDESONIDE 0.5 MG/2 ML NEB INH SCH (22:00)
[2018-12-17] MEDS: ALBUTEROL NEB 2.5 MG/3 ML INH SCH ×4 (02:00→12:58)
[2018-12-17] MEDS: SODIUM CHLORIDE FLUSH 0.9% 10 ML SYRINGE IVP SCH ×2 (03:36→08:24)
[2018-12-17] MEDS: FORMOTEROL FUMARATE NEB 20 MCG/2 ML INH SCH (05:17)
[2018-12-17] MEDS: BUDESONIDE 0.5 MG/2 ML NEB INH SCH (05:21)
[2018-12-17 05:34] LABS: BASOPHILS % (AUTO) 0.1 %; EOSINOPHILS % (AUTO) 0.1 %; HGB - HEMOGLOBIN 11.3 g/dL (12.0-16.0); LYMPHOCYTES # (AUTO) 1.2 10^3/uL (1.5-3.5); LYMPHOCYTES % (AUTO) 7.7 %; MEAN CORPUSCULAR HEMOGLOBIN 31.8 pg (27.0-31.0); MEAN CORPUSCULAR HGB CONC 33.6 g/dL (32.0-36.0); MEAN CORPUSCULAR VOLUME 94.6 fL (81.0-99.0); MEAN PLATELET VOLUME 6.2 fL (7.9-10.8); MONOCYTES % (AUTO) 6.8 %; NEUTROPHILS % (AUTO) 85.3 %; PLT - PLATELET COUNT 275 10^3/uL (130-450); RED BLOOD COUNT 3.57 10^6/uL (4.20-5.40); RED CELL DISTRIBUTION WIDTH 13.6 % (12.0-15.0); WHITE BLOOD COUNT 15.3 x10^3/uL (4.8-10.8)
[2018-12-17 06:01] LABS: CREATININE 0.5 mg/dL (0.4-1.0)
[2018-12-17] MEDS: methylPREDNISolone SUCCINATE 40 MG/ML VIAL IVP SCH ×2 (08:24→13:14)
[2018-12-17] MEDS ORDERED: POLYETHYLENE GLYCOL 3350 17 GM PACKET PO SCH (09:00)
[2018-12-17] MEDS ORDERED: cefTRIAXone 2 GM in SODIUM CHLORIDE 0.9% MINIBAG 100 ML IV SCH (09:00)
[2018-12-17] MEDS ORDERED: AZITHROMYCIN INJ 500 MG in SODIUM CHLORIDE 0.9% 250 ML IV SCH (09:00)
[2018-12-17] MEDS: SACCHAROMYCES BOULARDII 250 MG CAPSULE PO SCH (09:20)
--- NOTE | 2018-12-17 12:32 | Discharge Plan ---
Discharge Plan Disposition: 01 Home, Self Care Condition: Good Prescriptions: Albuterol Sulf [Ventolin Hfa Inhaler] 2 puffs INH 5XD PRN #2 inhaler PRN Reason: Shortness Of Air/Wheezing Amoxicillin 500 mg PO TID #18 capsule Azithromycin 500 mg PO DAILY #3 tablet Fluticasone/Salmeterol [Advair 250-50 Diskus] 1 each IH BID #1 blst.w.dev Diet: Regular Activity Restrictions: Activity as Tolerated Shower Restrictions: No Driving Restrictions: No Additional Instructions or Follow Up instructions: You were placed in observation in the hospital because your asthma was getting worse and not getting any better. We found you to have an early pneumonia in the right middle lobe and right lower lobe of the 3 lobes on your right lung. After overnight stay, you have improved. You no longer need oxygen. We think you are safe to go home. Please make sure you finish antibiotics. Do not skip any doses. I have refilled your inhalers. One is a long-acting inhaler called Advair. You do 1 puff twice a day. Make sure you rinse after mouth afterwards to avoid getting yeast. And one is a short acting hand-held inhaler called Ventolin. Since you do not have a primary care provider, we strongly encourage you to establish yourself with one so that you can get your asthma medications on a regular basis. You think you may be going to the [facility] in [facility] is a good choice because not only do they have regular clinic hours much closer to your home, they also have an urgent care clinic that you can be seen at 7 days a week. Again, please make sure you establish yourself with a primary care provider. No Smoking: If you smoke, Please STOP! Call for help.
[2018-12-17 13:53] VITALS: BP 56/36
[2018-12-17] MEDS ORDERED: METHADONE 5 MG TABLET PO ONE (14:00)
--- NOTE | 2018-12-22 21:39 | DISCHARGE SUMMARY ---
Physician: Kristal Escobar MD DATE OF ADMISSION: 12/16/2018 DATE OF DISCHARGE: 12/17/2018 DISCHARGE DIAGNOSES 1. Asthma with status asthmaticus. 2. Right lung pneumonia. 3. Hypoxia. 4. Opioid dependence. 5. Lack of primary care physician access. MEDICATIONS 1. Methadone 70 mg daily. 2. Ventolin HFA inhaler, 2 puffs up to 5 times a day as needed. 3. Amoxicillin 500 mg p.o. t.i.d. for 6 more days. 4. Azithromycin 500 mg daily for 3 more days. 5. Advair 250/50 puff b.i.d. PRINCIPAL PROCEDURES 1. Blood cultures negative after 24 hours. 2. Chest x-ray with nonspecific hazy opacity in the lingula and right lower lobe, new from 8. HISTORY OF PRESENT ILLNESS: This is a young white female who has had asthma since childhood. She is not under the care of a PCP and ran out of her medications 3 days ago. She usually uses her inhaler on a daily basis. She is a heroin user, last used it 2 weeks ago. Also is in methadone clinic. Romana smith is asking us to verify with the methadone clinic that she was in the hospital. We have given her a records release form for her to give to the clinic to verify her stay here. After 3 days of being out of her inhaler, she came to the emergency room because she was so short of breath that she could not take it anymore. She was found to be severely hypoxic with early pneumonia . She had an elevated white count at 11.8. Sodium was 130. Random glucose 139. Lactic acid 1.9. Quantitative hCG negative. Chest x-ray showed possible early pneumonia. Lung exam confirmed that. She was treated with steroids, nebulizers and antibiotics in the emergency room. The emergency room' s main concern was continued hypoxia. As such, the patient was placed in observation. She was yudelka nued on IV antibiotics in the form of Rocephin and azithromycin. Continued on nebulizers. We proble m solved about how she can get her asthma medications, since she cannot seem to get into a PCP office on a regular basis. [place] from the [facility]. We explored mika possibility that she could actually walk onto the [facility], take a bus from the end of the [facility] to t he [facility] or urgent care clinic. This would allow her to have 7 day a week access t o some provider if she wanted to go on off hours. As such, we gave her the name to the [facility] as well as names to physicians on the [place], if she chose to remain on the [place], that accept new patients. She was given methadone 70 mg after it was verified that is what she takes in the outpati ent setting. PHYSICAL EXAMINATION VITAL SIGNS: After 24 hours, she was no longer hypoxic and is 95% on room air. She is afebrile at 3 7, pulse is 100, blood pressure is read at 56/36, and I think this is a mistake because this patient was ambulating, not lightheaded in her room. GENERAL: She still had that hoarse voice on discharge. NECK: Shotty anterior cervical adenopathy. LUNGS: No wheezing. CARDIOVASCULAR: Regular rate and rhythm. ABDOMEN: Soft and nontender. EXTREMITIES: Hands and feet had no clubbing, cyanosis or edema. She is encouraged to finish antibiotics. Encouraged to get her Advair filled. Encouraged to establi sh herself with a PCP, either at [facility] or on the [place] so that she can get regular asthma medicat ions. TD: 12/22/2018 18:52
== END 2018-12-17 13:45 | disposition home or self-care (01) ==
LOC: ED 06:31 → OBS 11:50
PROVIDERS: ADMIT Specialist; ATTEND Specialist
DX: J45.902 Unspecified asthma with status asthmaticus (principal); J18.1 Lobar pneumonia, unspecified organism; R09.02 Hypoxemia; F11.20 Opioid dependence, uncomplicated; T48.6X6A Underdosing of antiasthmatics, initial encounter; F41.8 Other specified anxiety disorders; F17.210 Nicotine dependence, cigarettes, uncomplicated; Z79.51 Long term (current) use of inhaled steroids
CPT/HCPCS: 36415; 71046; 80048; 83605; 84702; 85025; 87040; 87275; 87276; 94150; 94640; 96361; 96365; 96366; 96367; 96375; 96376; 99284; A9270; G0378; J7626; 99285

== ENCOUNTER 2020-09-19 08:07 | Emergency (ER) | payer MEDICAID ==
[2020-09-19] MEDS ORDERED: CHERRY SYRUP 10 ML UDC PO ONE (08:19)
[2020-09-19] MEDS ORDERED: IPRATROPIUM/ALBUTEROL 3 ML NEB INH STA (08:19)
[2020-09-19] MEDS ORDERED: DEXAMETHASONE 10 MG/ML VIAL PO STA (08:19)
--- NOTE | 2020-09-19 08:23 | ED Physician Documentation ---
PD HPI DYSPNEA - Stated complaint Stated Complaint: ASTHMA - Chief complaint Chief Complaint: Resp - History obtained from History obtained from: Patient - History of Present Illness Timing - onset: How many days ago (2) Timing - onset during: Rest Timing - duration: Days (2) Timing - details: Gradual onset, Still present Inciting event(s): Allergic rxn/anaphylaxis (exposed to cat) Improved by: Inhaler/neb Worsened by: Exertion, Coughing Associated symptoms: Cough, Wheezing. No: Fever, Bilateral edema, Unilateral edema Similar symptoms before: Diagnosis (asthma) Recently seen: Not recently seen - Additional information Additional information: 30-year-old female with a history of asthma has developed an exacerbation over the past 2 days without fever she is still getting relief with her inhaler and still has an inhaler. She believes she was exposed to a cat and this is the nidus for her worsening. She is attending a methadone clinic. She denies being out of medication and states that the last time she had to have steroids was the last time that she was here which was in 2019. Review of Systems Constitutional: denies: Fever Eyes: denies: Decreased vision Ears: denies: Ear pain Nose: reports: Congestion. denies: Rhinorrhea / runny nose Throat: denies: Sore throat Cardiac: denies: Chest pain / pressure, Palpitations, Pedal edema, Calf pain Respiratory: reports: Dyspnea, Cough, Wheezing GI: denies: Abdominal Pain, Nausea, Vomiting : denies: Dysuria, Frequency Skin: denies: Rash Musculoskeletal: denies: Neck pain, Back pain, Extremity pain PD PAST MEDICAL HISTORY - Past Medical History Cardiovascular: None Respiratory: Asthma Endocrine/Autoimmune: None GI: None : None HEENT: None Psych: None Musculoskeletal: None Derm: None - Past Surgical History Past Surgical History: Yes General: Cholecystectomy Ortho: Other - Present Medications Home Medications: Ambulatory Orders Medication Instructions Recorded Confirmed Albuterol Sulf [Ventolin Hfa 2 puffs INH 5XD PRN #2 inhaler 12/17/18 Inhaler] Amoxicillin 500 mg PO TID #18 capsule 12/17/18 Azithromycin 500 mg PO DAILY #3 tablet 12/17/18 Fluticasone/Salmeterol [Advair 1 each IH BID #1 blst.w.dev 12/17/18 250-50 Diskus] Methadone 70 mg PO DAILY 12/17/18 12/17/18 Albuterol Sulf [Ventolin Hfa 1 - 2 puffs INH Q4HR PRN #1 inhaler 09/19/20 Inhaler] Azithromycin [Zithromax] 250 mg PO DAILY #6 tablet 09/19/20 predniSONE [Deltasone] 10 mg PO ONCE #26 tablet 09/19/20 - Allergies Allergies/Adverse Reactions: Allergies Allergy/AdvReac Type Severity Reaction Status Date / Time No Known Drug Allergies Allergy Verified 09/19/20 08:13 - Social History Does the pt smoke?: No Smoking Status: Never smoker Does the pt drink ETOH?: No Does the pt have substance abuse?: No - Immunizations Immunizations are current?: No Immunizations: TDAP >10years/unknown - POLST Patient has POLST: No PD ED PE NORMAL - Vitals Vital signs reviewed: Yes (tachy and hypertensive ) - General General: Alert and oriented X 3, Well developed/nourished, Other (teary eyed and tachypneic at rest) - HEENT HEENT: Atraumatic, PERRL, EOMI, Other (Left TM is inflamed right less so. Mucous membranes are dry. ) - Neck Neck: Supple, no meningeal sign - Cardiac Cardiac: No murmur, Other (tachy) - Respiratory Respiratory: Other (tachypneic with reduced breath sounds and scattered wheezes) - Abdomen Abdomen: Soft, Non tender - Back Back: No CVA TTP, No spinal TTP - Derm Derm: Normal color, Warm and dry, No rash - Extremities Extremities: No deformity, No edema - Neuro Neuro: Alert and oriented X 3, therapy teacher 2-12 intact, No motor deficit, No sensory deficit, Normal speech Eye Opening: Spontaneous Motor: Obeys Commands Verbal: Oriented GCS Score: 15 - Psych Psych: Normal mood, Normal affect Results - Vitals Vitals: Vital Signs - 24 hr 09/19/20 09/19/20 08:10 08:54 Temperature 36.5 C Heart Rate 119 H 100 Respiratory 16 100 H Rate Blood Pressure 134/81 H O2 Saturation 100 Oxygen O2 Source Room air - Rads (name of study) chest Radiology: Prelim report reviewed (Impression: Finding is suggestive of mild reactive airway disease such as bronchitis or viral pneumonia. No definite focal infiltrate. No pleural effusion or pneumothorax.), EMP read indepedently, See rad report PD MEDICAL DECISION MAKING - ED course Complexity details: reviewed old records, reviewed results, re-evaluated patient, considered differential, d/w patient ED course: 30-year-old female with history of asthma has acute exacerbation and comes into the emergency department with tight wheezing. She is administered dexamethasone 10 mg orally and a DuoNeb treatment with improvement. Her chest x-ray is concerning for the possibility of an infiltrate in the right lower lobe versus atelectasis. Departure - Departure Disposition: 01 Home, Self Care Clinical Impression: Asthmatic bronchitis with acute exacerbation Qualifiers: Asthma severity: mild Asthma persistence: intermittent Qualified Code(s): J45.21 - Mild intermittent asthma with (acute) exacerbation Condition: Stable Instructions: ED Bronchitis Asthmatic Follow-Up: [facility] [Provider Group] Prescriptions: Albuterol Sulf [Ventolin Hfa Inhaler] 1 - 2 puffs INH Q4HR PRN #1 inhaler PRN Reason: Shortness Of Air/Wheezing predniSONE [Deltasone] 10 mg PO ONCE #26 tablet Azithromycin [Zithromax] 250 mg PO DAILY #6 tablet
[2020-09-19] MEDS ORDERED: cefTRIAXone 1 GM VIAL IM STA (08:52)
[2020-09-19] MEDS ORDERED: LIDOCAINE 1% 2 ML VIAL MC ONE (08:52)
--- NOTE | 2020-09-19 08:57 | XRAY Report ---
PROCEDURE: Chest 1 View X-Ray INDICATIONS: soa TECHNIQUE: One view of the chest was acquired. COMPARISON: 12/16/2018 FINDINGS: Surgical changes and devices: None. Lungs and pleura: No pleural effusions or pneumothorax. Increased bronchovascular markings in bilate ral hilar region are seen with mild bronchial wall thickening. No definite focal infiltrate. Mediastinum: Mediastinal contours appear normal. Heart size is normal. Bones and chest wall: No suspicious bony lesions. Overlying soft tissues appear unremarkable. IMPRESSION: Finding is suggestive of mild reactive airway disease such as bronchitis or viral pneumonia. No defin ite focal infiltrate. No pleural effusion or pneumothorax. Reviewed by: Ray Mayer MD on 09/19/2020 8:56 AM [facility] Approved by: Ray Mayer MD on 09/19/2020 8:56 AM [facility] Station ID: [id number]
[2020-09-19 09:25] VITALS: BP 129/83
[2020-09-19 09:37] LABS: C. PNEUMONIAE- RESP PCR PANEL NOT DETECTED
== END 2020-09-19 09:33 | disposition home or self-care (01) ==
LOC: ED 08:07
DX: J45.21 Mild intermittent asthma with (acute) exacerbation (principal); R03.0 Elevated blood-pressure reading, without diagnosis of hypertension; Z20.828 Contact with and (suspected) exposure to other viral communicable diseases
CPT/HCPCS: 0202U; 71045; 94640; 96372; 99284; A9270

== ENCOUNTER 2022-02-23 16:53 | Emergency (ER) | payer MEDICAID ==
[2022-02-23] MEDS ORDERED: KETOROLAC 60 MG/2 ML VIAL IM STA (17:10)
[2022-02-23] MEDS ORDERED: IPRATROPIUM/ALBUTEROL 3 ML NEB INH STA (17:10)
[2022-02-23] MEDS ORDERED: BENZONATATE 100 MG CAPSULE PO STA (17:10)
[2022-02-23] MEDS ORDERED: predniSONE 20 MG TABLET PO STA (17:10)
--- OUTSIDE RECORDS SUMMARY | 2022-02-23 17:16 | EXTERNAL MEDICAL SUMMARY RPT | Continuity of Care Document ---
:1990 Author Organization [facility] Address [address] [place] [address] Phone Allergies No information. Encounters No information. Medications No information. Problems date description facility [id number] Unspecified asthma with (acute) [facility] exacerbation Results No information.
--- NOTE | 2022-02-23 17:18 | ED Physician Documentation ---
History of Present Illness - Stated complaint Stated Complaint: COUGH/HEAVY CHEST/HEADACHE - Chief complaint Chief Complaint: Resp - History obtained from History obtained from: Patient - History of Present Illness Timing: How many weeks ago (1) Pain level max: 4 Pain level now: 3 - Additonal information Additional information: Patient is a 31-year-old female who presents to the emergency department with a cough for the past week. She was standing at [facility] 2 days ago. States she had a negative COVID test. She states that she was given an inhaler but still feels like she is having a hard time breathing. Has a headache, body aches, subjective fever. No nausea or vomiting. No abdominal pain. She is on methadone daily, 160 mg. Review of Systems Constitutional: reports: Fever (Subjective), Chills Nose: reports: Rhinorrhea / runny nose, Congestion Cardiac: denies: Chest pain / pressure Respiratory: reports: Dyspnea, Cough, Wheezing GI: denies: Abdominal Pain, Nausea, Vomiting, Diarrhea : denies: Dysuria Skin: denies: Rash Musculoskeletal: denies: Neck pain, Back pain Neurologic: denies: Headache PD PAST MEDICAL HISTORY - Past Medical History Cardiovascular: None Respiratory: Asthma Endocrine/Autoimmune: None GI: None : None HEENT: None Psych: None Musculoskeletal: None Derm: None - Past Surgical History Past Surgical History: Yes General: Cholecystectomy Ortho: Other - Present Medications Home Medications: Ambulatory Orders Medication Instructions Recorded Confirmed Methadone [Methadone Hcl] 160 mg PO DAILY 12/17/18 02/23/22 Albuterol Sulf [Ventolin Hfa 1 - 2 puffs INH Q4HR PRN #1 inhaler 09/19/20 02/23/22 Inhaler] Amox/Clav 875/125 [Augmentin] 1 tab PO Q12H #20 tablet 02/23/22 Doxycycline Hyclate 100 mg PO BID #20 tab.sr 02/23/22 - Allergies Allergies/Adverse Reactions: Allergies Allergy/AdvReac Type Severity Reaction Status Date / Time No Known Drug Allergies Allergy Verified 02/23/22 17:00 - Social History Does the pt smoke?: No Smoking Status: Never smoker Does the pt drink ETOH?: No Does the pt have substance abuse?: No - Immunizations Immunizations are current?: No Immunizations: TDAP >10years/unknown - POLST Patient has POLST: No PD ED PE NORMAL - Vitals Vital signs reviewed: Yes - General General: Alert and oriented X 3, No acute distress - HEENT HEENT: Moist mucous membranes - Neck Neck: Supple, no meningeal sign - Cardiac Cardiac: RRR, Strong equal pulses - Respiratory Respiratory: No respiratory distress, Other (rhonchi bilaterally.) - Abdomen Abdomen: Soft, Non tender, Non distended - Derm Derm: Warm and dry - Extremities Extremities: No edema, No calf tenderness / cord - Neuro Neuro: Alert and oriented X 3 - Psych Psych: Normal mood, Normal affect Results - Vitals Vitals: Vital Signs - 24 hr 02/23/22 02/23/22 02/23/22 16:56 17:38 18:27 Temperature 36.3 C L Heart Rate 104 H 78 95 Respiratory 20 23 Rate Blood Pressure 134/82 H 136/99 H O2 Saturation 93 98 Oxygen O2 Source Room air Oxygen Flow Rate 1 - Labs Labs: Laboratory Tests 02/23/22 17:15 Nasal Adenovirus (PCR) NOT DETECTED Nasal B. parapertussis DNA (PCR) NOT DETECTED Nasal Coronavir 229E PCR NOT DETECTED Nasal Coronavir HKU1 PCR NOT DETECTED Nasal Coronavir NL63 PCR NOT DETECTED Nasal Coronavir OC43 PCR NOT DETECTED Nasal Enterovir/Rhinovir PCR NOT DETECTED Nasal Influenza B PCR NOT DETECTED Nasal Influenza A PCR NOT DETECTED Nasal Parainfluen 1 PCR NOT DETECTED Nasal Parainfluen 2 PCR NOT DETECTED Nasal Parainfluen 3 PCR NOT DETECTED Nasal Parainfluen 4 PCR NOT DETECTED Nasal RSV (PCR) NOT DETECTED Nasal B.pertussis DNA PCR NOT DETECTED Nasal C.pneumoniae (PCR) NOT DETECTED Russ Human Metapneumo PCR DETECTED A Nasal M.pneumoniae (PCR) NOT DETECTED Nasal SARS-CoV-2 (PCR) NOT DETECTED - Rads (name of study) cxr Radiology: Final report received, EMP read contemporaneously, See rad report PD MEDICAL DECISION MAKING - ED course Complexity details: reviewed results, re-evaluated patient, considered differential, d/w patient ED course: 31-year-old female with what appears to be bibasilar pneumonia. Will place on antibiotics for this. She is well-appearing, nontoxic. Afebrile. No hypoxia or respiratory distress. Patient counseled regarding signs and symptoms for which I believe and urgent re-evaluation would be necessary. Patient with good understanding of and agreement to plan and is comfortable going home at this time This document was made in part using voice recognition software. While efforts are made to proofread this document, sound alike and grammatical errors may occur. IMPRESSION: Bibasilar pneumonia. Follow-up PA and lateral chest x-rays or chest CT is recommended to ensure resolution, and to exclude underlying neoplasm. Departure - Departure Disposition: Home, Self Care Clinical Impression: Pneumonia Qualifiers: Pneumonia type: due to unspecified organism Laterality: bilateral Lung location: lower lobe of lung Qualified Code(s): J18.9 - Pneumonia, unspecified organism Condition: Good Instructions: ED Pneumonia Adult Follow-Up: your,doctor as needed [Other] Prescriptions: Amox/Clav 875/125 [Augmentin] 1 tab PO Q12H #20 tablet Doxycycline Hyclate 100 mg PO BID #20 tab.sr Comments: Take all antibiotics until gone. Return if you worsen. Please follow-up with your doctor in 2 weeks for repeat chest x-ray to ensure resolution. Your prescriptions were sent to [facility] Discharge Date/Time: 02/23/22 18:33
--- NOTE | 2022-02-23 17:54 | XRAY Report ---
PROCEDURE: Chest 2 View X-Ray INDICATIONS: cough, neg covid 2 days ago TECHNIQUE: 2 view(s) of the chest. COMPARISON: Chest x-ray dated 09/19/2020 FINDINGS: Surgical changes and devices: None. Lungs and pleura: No pleural effusions or pneumothorax. There is moderate bibasilar airspace opacity . Mediastinum: Mediastinal contours are normal. Heart size is normal. Bones and chest wall: No suspicious bony abnormalities. Soft tissues appear unremarkable. IMPRESSION: Bibasilar pneumonia. Follow-up PA and lateral chest x-rays or chest CT is recommended to ensure resolution, and to exclude underlying neoplasm. Reviewed by: Keith Carpio MD on 02/23/2022 5:52 PM PDT Approved by: Keith Carpio MD on 02/23/2022 5:52 PM PDT Station ID: [id number]
[2022-02-23 18:13] LABS: B. PARAPERTUSSIS- RESP PCR PAN NOT DETECTED; B. PERTUSSIS- RESP PCR PANEL NOT DETECTED; C. PNEUMONIAE- RESP PCR PANEL NOT DETECTED; CORONAVIRUS 229E-RESP PCR NOT DETECTED; CORONAVIRUS HKU1-RESP PCR NOT DETECTED; CORONAVIRUS NL63-RESP PCR NOT DETECTED; CORONAVIRUS OC43-RESP PCR NOT DETECTED; HUMAN METAPNEUMOVIRUS DETECTED; INFLUENZA A- RESP PCR PANEL NOT DETECTED; INFLUENZA B - RESP PCR PANEL NOT DETECTED; M. PNEUMONIAE- RESP PCR PANEL NOT DETECTED; PARAINFLUENZA VIRUS 1 NOT DETECTED; PARAINFLUENZA VIRUS 2 NOT DETECTED; PARAINFLUENZA VIRUS 3 NOT DETECTED; PARAINFLUENZA VIRUS 4 NOT DETECTED; RHINOVIRUS/ENTEROVIRUS NOT DETECTED; RSV- RESP PCR PANEL NOT DETECTED; SARS-CoV-2 -RESP PCR PANEL NOT DETECTED
[2022-02-23] MEDS ORDERED: AMOX/CLAV 875 MG/125 MG TABLET PO STA (18:25)
[2022-02-23] MEDS ORDERED: DOXYCYCLINE 100 MG TABLET PO STA (18:25)
[2022-02-23 18:28] VITALS: BP 136/99
== END 2022-02-23 18:33 | disposition home or self-care (01) ==
LOC: ED 16:53
DX: J18.8 Other pneumonia, unspecified organism (principal); J12.3 Human metapneumovirus pneumonia
CPT/HCPCS: 71046; 87633; 94640; 96372; 99282; 99284; A9270; J7512

== ENCOUNTER 2022-06-09 18:45 | Emergency (ER) | payer MEDICAID ==
[2022-06-09 18:55] VITALS: BP 123/78
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
[2022-06-09] MEDS: ALBUTEROL NEB 2.5 MG/3 ML INH STA (19:05)
[2022-06-09] MEDS: IPRATROPIUM/ALBUTEROL 3 ML NEB INH STA (19:05)
[2022-06-09] MEDS: predniSONE 20 MG TABLET PO STA (19:06)
[2022-06-09] MEDS: HYDROcod/ACETAM 5/325 MG TABLET PO STA (19:06)
[2022-06-09 20:17] LABS: CORONAVIRUS 229E-RESP PCR NOT DETECTED; CORONAVIRUS HKU1-RESP PCR NOT DETECTED; CORONAVIRUS NL63-RESP PCR NOT DETECTED; CORONAVIRUS OC43-RESP PCR NOT DETECTED; HUMAN METAPNEUMOVIRUS NOT DETECTED; RHINOVIRUS/ENTEROVIRUS DETECTED; SARS-CoV-2 -RESP PCR PANEL NOT DETECTED
[2022-06-09 20:18] LABS: B. PARAPERTUSSIS- RESP PCR PAN NOT DETECTED; B. PERTUSSIS- RESP PCR PANEL NOT DETECTED; C. PNEUMONIAE- RESP PCR PANEL NOT DETECTED; INFLUENZA A- RESP PCR PANEL NOT DETECTED; INFLUENZA B - RESP PCR PANEL NOT DETECTED; M. PNEUMONIAE- RESP PCR PANEL NOT DETECTED; PARAINFLUENZA VIRUS 1 NOT DETECTED; PARAINFLUENZA VIRUS 2 NOT DETECTED; PARAINFLUENZA VIRUS 3 NOT DETECTED; PARAINFLUENZA VIRUS 4 NOT DETECTED; RSV- RESP PCR PANEL NOT DETECTED
== END 2022-06-09 19:51 | disposition home or self-care (01) ==
LOC: ED 18:45
DX: J45.901 Unspecified asthma with (acute) exacerbation (principal); Z20.822 Contact with and (suspected) exposure to COVID-19
CPT/HCPCS: 87633; 94640; 99283; 99284; A9270; J7512

== ENCOUNTER 2022-08-05 18:28 | Emergency (ER) | payer MEDICAID ==
[2022-08-05] MEDS ORDERED: ALBUTEROL NEB 2.5 MG/3 ML INH STA (19:00)
[2022-08-05] MEDS ORDERED: IPRATROPIUM/ALBUTEROL 3 ML NEB INH STA (19:00)
[2022-08-05] MEDS ORDERED: methylPREDNISolone SUCCINATE 125 MG/2 ML VIAL IVP STA (19:01)
--- NOTE | 2022-08-05 19:02 | ED Physician Documentation ---
PD HPI DYSPNEA - Stated complaint Stated Complaint: SOA - Chief complaint Chief Complaint: Resp - History obtained from History obtained from: Patient - Additional information Additional information: 31-year-old woman with history of asthma, has been hospitalized for same but never in intensive care. She presents with cough this been going on for 2 weeks but acutely worse over the last day and a half or so with shortness of breath and wheezing not responsive to her inhaler. She denies fevers or chills. No production to the cough. Review of Systems Ten Systems: 10 systems reviewed and negative Constitutional: denies: Fever, Chills Nose: denies: Rhinorrhea / runny nose, Congestion Respiratory: reports: Dyspnea, Cough PD PAST MEDICAL HISTORY - Past Medical History Cardiovascular: None Respiratory: Asthma Endocrine/Autoimmune: None GI: None : None HEENT: None Psych: None Musculoskeletal: None Derm: None - Past Surgical History Past Surgical History: Yes General: Cholecystectomy Ortho: Other - Present Medications Home Medications: Ambulatory Orders Medication Instructions Recorded Confirmed Methadone [Methadone Hcl] 150 mg PO DAILY 12/17/18 08/05/22 Albuterol 2.5 mg INH Q4H PRN #30 ml 06/09/22 08/05/22 Albuterol Sulf [Ventolin Hfa 1 - 2 puffs INH Q4HR PRN #1 gm 06/09/22 08/05/22 Inhaler] Albuterol 2.5 mg INH Q4H PRN #30 ml 08/05/22 Albuterol Sulf [Ventolin Hfa 1 - 2 puffs INH Q4HR PRN #1 each 08/05/22 Inhaler] Ipratropium/Albuterol [Duoneb] 3 ml INH Q6H PRN #1 each 08/05/22 predniSONE [Deltasone] 20 mg PO [id number] #21 tab 08/05/22 - Allergies Allergies/Adverse Reactions: Allergies Allergy/AdvReac Type Severity Reaction Status Date / Time No Known Drug Allergies Allergy Verified 08/05/22 18:47 - Social History Does the pt smoke?: No Smoking Status: Never smoker Does the pt drink ETOH?: No Does the pt have substance abuse?: No - Immunizations Immunizations are current?: No Immunizations: TDAP >10years/unknown - POLST Patient has POLST: No PD ED PE NORMAL - Vitals Vital signs reviewed: Yes - General General: Alert and oriented X 3, Other (She is tachypneic and tachycardic, speaking in full sentences albeit not in full paragraphs.) - HEENT HEENT: PERRL, EOMI - Neck Neck: Supple, no meningeal sign, No bony TTP - Cardiac Cardiac: RRR, No murmur - Respiratory Respiratory: Other (Inspiratory and expiratory wheezes and rhonchi throughout and mildly labored.) - Abdomen Abdomen: Non tender - Back Back: No CVA TTP, No spinal TTP - Derm Derm: Normal color, Warm and dry - Extremities Extremities: No edema, No calf tenderness / cord - Neuro Neuro: Alert and oriented X 3, Normal speech Results - Vitals Vitals: Vital Signs - 24 hr 08/05/22 08/05/22 08/05/22 18:47 19:05 19:22 Temperature 36.7 C Heart Rate 117 H 98 118 H Respiratory 24 24 20 Rate Blood Pressure 127/82 H 136/84 H O2 Saturation 90 L 97 Oxygen O2 Source nebulizer - Labs Labs: Laboratory Tests 08/05/22 08/05/22 19:05 19:05 WBC 12.0 H RBC 3.87 L Hgb 12.1 Hct 35.4 L MCV 91.5 MCH 31.3 H MCHC 34.2 RDW 13.3 Plt Count 266 MPV 8.5 Neut # (Auto) 10.3 H Lymph # (Auto) 0.8 L [place] # (Auto) 0.7 Eos # (Auto) 0.2 Baso # (Auto) 0.0 Absolute Nucleated RBC 0.00 Nucleated RBC % 0.0 Sodium 130 L Potassium 3.8 Chloride 103 Carbon Dioxide 19 L Anion Gap 8.0 BUN 8 Creatinine 0.5 Estimated GFR (MDRD) 144 Glucose 118 H Calcium 8.7 PD MEDICAL DECISION MAKING - ED course ED course: 31-year-old woman presents with status asthmaticus. She was given a large neb with a DuoNeb and 7.5 mg of albuterol. On recheck subsequent to this she still had mild wheezes but was feeling much better, breathing easily and request discharge. She received 125 mg of Solu-Medrol IV here as well. She has a nebulizer at home. She was encouraged to quit smoking. Departure - Departure Disposition: Home, Self Care Clinical Impression: Asthma exacerbation Qualifiers: Asthma severity: moderate Asthma persistence: persistent Qualified Code(s): J45.41 - Moderate persistent asthma with (acute) exacerbation Condition: Good Record reviewed to determine appropriate education?: Yes Instructions: Asthma Dc Prescriptions: Albuterol Sulf [Ventolin Hfa Inhaler] 1 - 2 puffs INH Q4HR PRN #1 each PRN Reason: Shortness Of Air/Wheezing Albuterol 2.5 mg INH Q4H PRN #30 ml PRN Reason: Wheezing predniSONE [Deltasone] 20 mg PO [id number] #21 tab Ipratropium/Albuterol [Duoneb] 3 ml INH Q6H PRN #1 each PRN Reason: Wheezing Comments: Call your doctor to arrange a follow-up appointment, make the next available appointment. In the interim, return anytime if worse or if new symptoms develop.
[2022-08-05] MEDS ORDERED: ALBUTEROL NEB 2.5 MG/3 ML INH ONE (19:06)
[2022-08-05 19:13] LABS: BASOPHILS % (AUTO) 0.2 %; EOSINOPHILS # (AUTO) 0.2 10^3/uL (0.0-0.7); EOSINOPHILS % (AUTO) 1.2 %; HCT - HEMATOCRIT 35.4 % (37.0-47.0); HGB - HEMOGLOBIN 12.1 g/dL (12.0-16.0); LYMPHOCYTES # (AUTO) 0.8 10^3/uL (1.5-3.5); LYMPHOCYTES % (AUTO) 6.8 %; MEAN CORPUSCULAR HEMOGLOBIN 31.3 pg (27.0-31.0); MEAN CORPUSCULAR HGB CONC 34.2 g/dL (32.0-36.0); MEAN CORPUSCULAR VOLUME 91.5 fL (81.0-99.0); MEAN PLATELET VOLUME 8.5 fL (7.9-10.8); MONOCYTES # (AUTO) 0.7 10^3/uL (0.0-1.0); MONOCYTES % (AUTO) 5.5 %; NEUTROPHILS # (AUTO) 10.3 10^3/uL (1.5-6.6); NEUTROPHILS % (AUTO) 85.9 %; PLT - PLATELET COUNT 266 10^3/uL (130-450); RED BLOOD COUNT 3.87 10^6/uL (4.20-5.40); RED CELL DISTRIBUTION WIDTH 13.3 % (12.0-15.0)
--- NOTE | 2022-08-05 19:27 | XRAY Report ---
PROCEDURE: Chest 1 View X-Ray INDICATIONS: dyspnea TECHNIQUE: One view of the chest was acquired. COMPARISON: 02/23/2022, 09/19/2020, 12/16/2018 FINDINGS: Surgical changes and devices: None. Lungs and pleura: No pleural effusions or pneumothorax. Lungs are clear. Mediastinum: Mediastinal contours appear normal. Heart size is normal. Bones and chest wall: No suspicious bony lesions. Overlying soft tissues appear unremarkable. IMPRESSION: Unremarkable portable chest. Reviewed by: Taiwo Wilkerson MD on 08/05/2022 6:25 PM [facility] Approved by: Taiwo Wilkerson MD on 08/05/2022 6:25 PM [facility] Station ID: [id number]
[2022-08-05 19:31] LABS: CALCIUM 8.7 mg/dL (8.5-10.3); CREATININE 0.5 mg/dL (0.4-1.0); POTASSIUM 3.8 mmol/L (3.5-5.0)
[2022-08-05 20:13] VITALS: BP 127/83
== END 2022-08-05 20:20 | disposition home or self-care (01) ==
LOC: ED 18:28
DX: J45.41 Moderate persistent asthma with (acute) exacerbation (principal); F17.200 Nicotine dependence, unspecified, uncomplicated
CPT/HCPCS: 36415; 80048; 85025; 94640; 96374; 99284

== ENCOUNTER 2022-10-10 22:20 | Outpatient (CLI) | payer MEDICAID | END 2022-10-10 22:21 | disposition critical access hospital (66) | LOC: EMS 22:20 | DX: R10.9 Unspecified abdominal pain (principal); N93.9 Abnormal uterine and vaginal bleeding, unspecified; Z97.5 Presence of (intrauterine) contraceptive device; R40.4 Transient alteration of awareness | CPT/HCPCS: A0425; A0427; A0999 ==

== ENCOUNTER 2022-10-10 22:37 | Observation (INO) | payer MEDICAID ==
[2022-10-10] MEDS ORDERED: KETOROLAC 15 MG/ML VIAL IVP STA (22:50)
[2022-10-10] MEDS ORDERED: TRANEXAMIC ACID 1,000 MG in SODIUM CHLORIDE 0.9% 100ML 100 ML IV STA (22:50)
[2022-10-10] MEDS ORDERED: SODIUM CHLORIDE 0.9% 1,000 ML IV STA ×2 (22:51→23:51)
[2022-10-10] MEDS ORDERED: TRANEXAMIC ACID 1,000 MG/10 ML VIAL ONE (22:55)
[2022-10-10 23:08] LABS: BASOPHILS % (AUTO) 0.3 %; EOSINOPHILS # (AUTO) 0.1 10^3/uL (0.0-0.7); EOSINOPHILS % (AUTO) 1.1 %; HGB - HEMOGLOBIN 8.1 g/dL (12.0-16.0); MEAN CORPUSCULAR HEMOGLOBIN 30.8 pg (27.0-31.0); MEAN CORPUSCULAR HGB CONC 31.2 g/dL (32.0-36.0); MEAN CORPUSCULAR VOLUME 98.9 fL (81.0-99.0); MEAN PLATELET VOLUME 8.9 fL (7.9-10.8); MONOCYTES # (AUTO) 0.8 10^3/uL (0.0-1.0); MONOCYTES % (AUTO) 7.3 %; NEUTROPHILS # (AUTO) 7.8 10^3/uL (1.5-6.6); NEUTROPHILS % (AUTO) 71.9 %; PLT - PLATELET COUNT 280 10^3/uL (130-450); RED BLOOD COUNT 2.63 10^6/uL (4.20-5.40); RED CELL DISTRIBUTION WIDTH 14.5 % (12.0-15.0); WHITE BLOOD COUNT 10.9 x10^3/uL (4.8-10.8)
[2022-10-10 23:21] LABS: ALBUMIN 2.3 g/dL (3.2-5.5); ALBUMIN/GLOBULIN RATIO 0.7 (1.0-2.2); BILIRUBIN,TOTAL 0.5 mg/dL (0.2-1.0); CREATININE 1.4 mg/dL (0.4-1.0); POTASSIUM 4.8 mmol/L (3.5-5.0); TOTAL PROTEIN 5.6 g/dL (6.7-8.2)
--- NOTE | 2022-10-10 23:29 | ED Physician Documentation ---
PD HPI FEMALE - Stated complaint Stated Complaint: VAG BLEED - Chief complaint Chief Complaint: Abd Pain - History obtained from History obtained from: Patient, EMS (Medics report a large amount of blood and clots in the toilet on which she was sitting. She was pale and decreased mentation.) - History of Present Illness Timing - onset: How many hours ago (4) Timing - duration: Hours (4) Timing - details: Abrupt onset Associated symptoms: Pelvic pain (cramping lower abd /pelvic pain at onset and with the bleeding. States she did not take any meds/extra meds for the pain.). 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 denies: Fever Throat: denies: Sore throat Respiratory: denies: Cough GI: reports: Nausea. denies: Vomiting, Diarrhea, Bloody / black stool : reports: Vaginal bleeding (large amount the past 4 hours.). denies: Dysuria Neurologic: reports: Generalized weakness (this evening), Near syncope, Altered mental status (moderately alert per EMS and enroute.). denies: Syncope PD PAST MEDICAL HISTORY - Past Medical History Cardiovascular: None Respiratory: Asthma Neuro: None Endocrine/Autoimmune: None GI: None PACU NURSE: None : None HEENT: None Psych: None Musculoskeletal: None Derm: None - Past Surgical History Past Surgical History: Yes General: Cholecystectomy Ortho: Other - Present Medications Home Medications: Ambulatory Orders Medication Instructions Recorded Confirmed Methadone [Methadone Hcl] 150 mg PO DAILY 12/17/18 08/05/22 Albuterol 2.5 mg INH Q4H PRN #30 ml 06/09/22 08/05/22 Albuterol Sulf [Ventolin Hfa 1 - 2 puffs INH Q4HR PRN #1 gm 06/09/22 08/05/22 Inhaler] Albuterol 2.5 mg INH Q4H PRN #30 ml 08/05/22 Albuterol Sulf [Ventolin Hfa 1 - 2 puffs INH Q4HR PRN #1 each 08/05/22 Inhaler] Ipratropium/Albuterol [Duoneb] 3 ml INH Q6H PRN #1 each 08/05/22 predniSONE [Deltasone] 20 mg PO [id number] #21 tab 08/05/22 - Allergies Allergies/Adverse Reactions: Allergies Allergy/AdvReac Type Severity Reaction Status Date / Time No Known Drug Allergies Allergy Verified 10/10/22 22:45 - Social History Does the pt smoke?: No Smoking Status: Never smoker Does the pt drink ETOH?: No Does the pt have substance abuse?: No - Immunizations Immunizations are current?: No Immunizations: TDAP >10years/unknown - POLST Patient has POLST: No PD ED PE NORMAL - Vitals Vital signs reviewed: Yes - General General: Well developed/nourished, Other (pale color and feels cold with some shivering. Nods head for answering simple questions. Not talking initially. ). No: Alert and oriented X 3 (mildly somnolent but answers questions nodding initially. Adequate airway protection and sats. ) - Cardiac Cardiac: RRR (borderline tachycardic; EMS reported tachycardia on their initial vitals. ), No murmur - Respiratory Respiratory: Clear bilaterally - Abdomen Abdomen: Normal bowel sounds, Soft, Non distended, Other (tender lower abd/suprapubic with local guarding. ) - Female Female : Bilingual Executive Assistant present (nursing and tech), Other (There were large clots and some blood in the vaginal vault. Visible coming from the cervical os and there was some tissue like stranding material from the os. No vaginal source of bleeding. Tracy forceps were used to grasp the tissue-like material and pull it out gently in a long strand. ) - Derm Derm: No: Normal color (very pale and cold to the touch. Delayed cap refill. ) - Extremities Extremities: No calf tenderness / cord - Neuro Neuro: No motor deficit, No sensory deficit Eye Opening: To Voice Motor: Obeys Commands Verbal: Confused GCS Score: 13 Results - Vitals Vitals: Vital Signs - 24 hr 10/10/22 10/10/22 10/10/22 22:41 22:49 23:20 Temperature 36.1 C L 36.1 C L 36.5 C Heart Rate 95 102 H 74 Respiratory 22 24 14 Rate Blood Pressure 115/89 H 115/89 H 102/66 O2 Saturation 97 100 99 10/11/22 10/11/22 10/11/22 00:02 00:17 00:31 Temperature Heart Rate 90 86 77 Respiratory 23 20 12 Rate Blood Pressure 109/76 127/87 H 114/79 O2 Saturation 100 100 100 Oxygen O2 Source Room air - Labs Labs: Laboratory Tests 10/10/22 10/10/22 10/10/22 22:53 22:53 22:53 WBC 10.9 H RBC 2.63 L Hgb 8.1 L Hct 26.0 L MCV 98.9 MCH 30.8 MCHC 31.2 L RDW 14.5 Plt Count 280 MPV 8.9 Neut # (Auto) 7.8 H Lymph # (Auto) 2.0 [place] # (Auto) 0.8 Eos # (Auto) 0.1 Baso # (Auto) 0.0 Absolute Nucleated RBC 0.00 Nucleated RBC % 0.0 Sodium 131 L Potassium 4.8 Chloride 102 Carbon Dioxide 17 L Anion Gap 12.0 BUN 17 Creatinine 1.4 H Estimated GFR (MDRD) 44 L Glucose 171 H Calcium 8.0 L Total Bilirubin 0.5 AST 18 ALT 10 Alkaline Phosphatase 84 Total Protein 5.6 L Albumin 2.3 L Globulin 3.3 Albumin/Globulin Ratio 0.7 L Lipase 24 Serum HCG, Qual HCG, Quant SARS-CoV-2 (PCR) Blood Type A POSITIVE Blood Type Recheck Antibody Screen NEGATIVE Crossmatch IS Only See Detail 10/10/22 10/10/22 10/10/22 22:53 22:55 22:57 WBC RBC Hgb Hct MCV MCH MCHC RDW Plt Count MPV Neut # (Auto) Lymph # (Auto) [place] # (Auto) Eos # (Auto) Baso # (Auto) Absolute Nucleated RBC Nucleated RBC % Sodium Potassium Chloride Carbon Dioxide Anion Gap BUN Creatinine Estimated GFR (MDRD) Glucose Calcium Total Bilirubin AST ALT Alkaline Phosphatase Total Protein Albumin Globulin Albumin/Globulin Ratio Lipase Serum HCG, Qual POSITIVE HCG, Quant 75733.00 SARS-CoV-2 (PCR) NOT DETECTED Blood Type Blood Type Recheck Antibody Screen Crossmatch IS Only 10/10/22 10/10/22 23:50 23:50 WBC RBC Hgb 7.5 L Hct 23.1 L MCV MCH MCHC RDW Plt Count MPV Neut # (Auto) Lymph # (Auto) [place] # (Auto) Eos # (Auto) Baso # (Auto) Absolute Nucleated RBC Nucleated RBC % Sodium Potassium Chloride Carbon Dioxide Anion Gap BUN Creatinine Estimated GFR (MDRD) Glucose Calcium Total Bilirubin AST ALT Alkaline Phosphatase Total Protein Albumin Globulin Albumin/Globulin Ratio Lipase Serum HCG, Qual HCG, Quant SARS-CoV-2 (PCR) Blood Type Blood Type Recheck A POSITIVE Antibody Screen Crossmatch IS Only - Rads (name of study) pelvic OB U/S Radiology: Prelim report reviewed (very thickened endometrium with clots, c/w retained products of conception vs molar vs endometrial mass - correlate with HCG and labs. ), See rad report PD Medical Decision Making - ED course Complexity details: reviewed results ( test is positive. Quant hCG of 25,000 consistent with mid first trimester . The level is not high enough to necessarily suggest molar .), re-evaluated patient (Sequential perineal checks on the padding to evaluate ongoing bleeding. R eevaluation every 10 to 15 minutes with a diminishing amount of blood.), considered differential, d/w patient, d/w internet sales consultant (I did consult with Dr. Cruz who is on-call for [facility] and reviewed the symptoms exam and blood in ultrasound results with him. He agrees the patient is sufficiently ill enough to need hospitalization and further evaluation. He will admit the patient.) Reviewed Lab Results: She has significant abrupt bleeding. Initial blood count is 8.1 with a previous in June on review of records of 12.6. This is a considerable drop in blood count presumably with acute blood loss. Recheck of the blood count an hour later is 7.5. This would be somewhat dilutional from the IV fluids but is suggesting some degree of ongoing blood loss. She is and quantitative of 25,000 suggest first trimester. Her ultrasound is showing thickened endometrium. Ovaries are good with no free fluid in the pelvis. There is clots in the uterus as well. Consistent with retained products and incomplete miscarriage. Drug Therapy Requiring Monitoring for Toxicity: She is given several liters of crystalloid fluid for volume resuscitation and to improve blood pressure and heart rate. She is given IV tranexamic acid as well as Toradol and nausea medicine. She had improvement in her pain and seemed to have diminishing of her bleeding. Reassessment of vital signs showed a improving heart rate and blood pressure. ED course: I did review prior blood test results to evaluate the degree of blood loss from the current episode. Ordered and reviewed were CBC and chemistry panel as well as a hCG qualitative and quantitative as well as blood typing. She was typing crossed for 2 units but that are being held in case she needs transfusion. - Critical Care Time(min): 50 Comments: Patient initially showing significant volume loss with poor tissue perfusion and mentation and transient hypotension with tachycardia. This from acute blood loss. Evaluation for need of transfusion and given IV fluids for volume resuscitation, and IV medications to decrease bleeding. Time Includes: Direct patient care, Reassess patient, Coordinate care, Medical consult Departure - Departure Disposition: ED Place in Observation Clinical Impression: Vaginal bleeding affecting early , Incomplete miscarriage with blood clot, Anemia due to blood loss, acute, Transient hypotension Condition: Stable Record reviewed to determine appropriate education?: Yes
[2022-10-10 23:46] LABS: HCG,QUALITATIVE BLOOD POSITIVE
[2022-10-11 00:08] LABS: HCT - HEMATOCRIT 23.1 % (37.0-47.0); HGB - HEMOGLOBIN 7.5 g/dL (12.0-16.0)
--- NOTE | 2022-10-11 00:48 | Ultrasound Report ---
PROCEDURE: Pelvic w/Transvag+Doppler Comp INDICATIONS: pelvic pain, R TECHNIQUE: Real-time scanning was performed of the pelvic organs, with image documentation. Additional endovagi nal scanning was necessary due to incomplete visualization of the adnexal and endometrial structures by transabdominal scanning. Doppler interrogation was performed of the ovaries bilaterally. COMPARISON: CT abdomen pelvis 01/08/2018. FINDINGS: No pathologic free abdominal or pelvic fluid. Uterus: Uterus is anteverted and measures 13.4 x 7.7 x 10.1 cm. The endometrium is thickened and het erogeneous in appearance, measuring up to 5.2 cm. There is minimal internal vascularity within the en dometrium. Ovaries: The right kidney measures 3 x 1.8 x 2.2 cm with a calculated volume of 6.3 mL. The left ova ry measures 2.7 x 1.1 x 2.3 cm with a calculated volume of 3.7 mL. Less than 12 follicles. No adnexal masses. There is patent arterial and venous flow in the ovaries bilaterally. Other: No free pelvic fluid. IMPRESSION: 1. No evidence of ovarian torsion. 2. Thickened heterogeneous endometrium with mild internal vascularity. The differential includes bloo d product possibly from a spontaneous in progress with retained products of conception, a mo lar , or endometrial mass. Recommend correlation clinically including with beta-hCG levels. Reviewed by: Preston Canales MD on 10/11/2022 12:46 AM PST Approved by: Preston Canales MD on 10/11/2022 12:46 AM PST Station ID: [id number]
[2022-10-11] MEDS ORDERED: SODIUM CHLORIDE FLUSH 0.9% 10 ML SYRINGE IVP PRN (01:27)
[2022-10-11] MEDS ORDERED: IBUPROFEN 600 MG TABLET PO PRN (01:27)
[2022-10-11] MEDS ORDERED: ONDANSETRON ODT 4 MG TABLET TL PRN (01:27)
--- NOTE | 2022-10-11 01:45 | HISTORY & PHYSICAL EXAMINATION ---
History and Physical - History and Physical HPI: 32-year-old -0-1-1 at unknown gestation here for heavy vaginal bleeding that started approximately yesterday afternoon, approximately 4 hours prior to arrival. She told her partner, who accompanies her today, that she was having abdominal pain and cramping yesterday morning and by the afternoon progressed to heavy bleeding. The bleeding became so heavy that her partner called EMS which reported large amount of blood, patient pallor, and hypotension. She responded to fluids was brought to the ED. No significant problems prior to this event. Her LMP is unknown. She has not had bleeding in quite some time. She has a Nexplanon in place, believes its been over 5 years. She did not know she was , but had a quantitative hCG of 25,414, blood type a positive. All other symptoms reviewed and were negative except per HPI. PMH Asthma PSH Wrist ORIF, cholecystectomy SH 1/2 pack/day tobacco, no alcohol, current methadone use with [facility] Family History Patient was adopted Allergies No known drug allergies Medications Albuterol Methadone Temp Pulse Resp BP Pulse Ox O2 Flow Rate 97.7 F 70 18 109/71 99 10/10/22 23:20 10/11/22 01:21 10/11/22 01:21 10/11/22 01:21 10/11/22 01:21 General: Pale. Alert, oriented. Head: Normal cephalic atraumatic Eyes: PERRLA, extraocular motions intact. Respiratory: Normal rate of respiration. No accessory muscle use, normal respiratory effort. Cardiovascular: Regular rate and rhythm Abdomen: Soft, nontender Extremities: Normal range of motion Neuro: Oriented x3. Normal movements Psych: Appropriate mood and affect. Normal judgment and insight : Deferred as she only recently had an exam and bleeding has slowed Laboratory Last Values WBC 10.9 x10^3/uL (4.8-10.8) H 10/10/22 22:53 RBC 2.63 10^6/uL (4.20-5.40) L 10/10/22 22:53 Hgb 7.5 g/dL (12.0-16.0) L 10/10/22 23:50 Hct 23.1 % (37.0-47.0) L 10/10/22 23:50 MCV 98.9 fL (81.0-99.0) 10/10/22 22:53 MCH 30.8 pg (27.0-31.0) 10/10/22 22:53 MCHC 31.2 g/dL (32.0-36.0) L 10/10/22 22:53 RDW 14.5 % (12.0-15.0) 10/10/22 22:53 Plt Count 280 10^3/uL (130-450) 10/10/22 22:53 MPV 8.9 fL (7.9-10.8) 10/10/22 22:53 Neut # (Auto) 7.8 10^3/uL (1.5-6.6) H 10/10/22 22:53 Lymph # (Auto) 2.0 10^3/uL (1.5-3.5) 10/10/22 22:53 [place] # (Auto) 0.8 10^3/uL (0.0-1.0) 10/10/22 22:53 Eos # (Auto) 0.1 10^3/uL (0.0-0.7) 10/10/22 22:53 Baso # (Auto) 0.0 10^3/uL (0.0-0.1) 10/10/22 22:53 Absolute Nucleated RBC 0.00 x10^3/uL 10/10/22 22:53 Nucleated RBC % 0.0 /100WBC 10/10/22 22:53 Sodium 131 mmol/L (135-145) L 10/10/22 22:53 Potassium 4.8 mmol/L (3.5-5.0) 10/10/22 22:53 Chloride 102 mmol/L (101-111) 10/10/22 22:53 Carbon Dioxide 17 mmol/L (21-32) L 10/10/22 22:53 Anion Gap 12.0 (6-13) 10/10/22 22:53 BUN 17 mg/dL (6-20) 10/10/22 22:53 Creatinine 1.4 mg/dL (0.4-1.0) H 10/10/22 22:53 Estimated GFR (MDRD) 44 (>89) L 10/10/22 22:53 Glucose 171 mg/dL (70-100) H 10/10/22 22:53 Calcium 8.0 mg/dL (8.5-10.3) L 10/10/22 22:53 Total Bilirubin 0.5 mg/dL (0.2-1.0) 10/10/22 22:53 AST 18 IU/L (10-42) 10/10/22 22:53 ALT 10 IU/L (10-60) 10/10/22 22:53 Alkaline Phosphatase 84 IU/L (42-121) 10/10/22 22:53 Total Protein 5.6 g/dL (6.7-8.2) L 10/10/22 22:53 Albumin 2.3 g/dL (3.2-5.5) L 10/10/22 22:53 Globulin 3.3 g/dL (2.1-4.2) 10/10/22 22:53 Albumin/Globulin Ratio 0.7 (1.0-2.2) L 10/10/22 22:53 Lipase 24 U/L (22-51) 10/10/22 22:53 Serum HCG, Qual POSITIVE 10/10/22 22:53 HCG, Quant 25086.00 mIU/mL 10/10/22 22:55 SARS-CoV-2 (PCR) NOT DETECTED 10/10/22 22:57 Blood Type A POSITIVE 10/10/22 22:53 Blood Type Recheck A POSITIVE 10/10/22 23:50 Antibody Screen NEGATIVE 10/10/22 22:53 Crossmatch IS Only See Detail 10/10/22 22:53 Ultrasound: Transvaginal ultrasound showed uterus is anteverted uterus and measures 13.4 x 7.7 x 10.1 cm. The endometrium is thickened and heterogenous in appearance measuring up to 5.2 cm. There is minimal internal vascularity within the endometrium. Plan 32-year-old -0-1-1 with incomplete 1. Incomplete : -At time of ultrasound, approximately 2 hours ago still had some clot, but after passing clots and some tissue spontaneously and during previous exam, bleeding has greatly subsided. Received tranexamic acid in the ED. Plan for 800 mcg of misoprostol buccal. -Counseled the risk, benefits, alternatives of suction D&C. Discussed the risk of bleeding, infection, perforation, damage to other organs, scar tissue in the uterus complicating future pregnancies. -At this time, vitals are stable and bleeding has slowed, but blood levels two months ago showed a hemoglobin of 12.1 and currently down to 7.5. Plan to place patient in observation for assessment of bleeding and determine surgical necessity. If bleeding worsens, will likely go back for dilation and curettage. -Plan for maintenance fluids at this time. 2. Methadone use: Last dose yesterday morning 3. Asthma: Albuterol use 1-2 times weekly. 4. Tobacco abuse: Smokes 1/2 pack/day. Encouraged cessation 5. Contraceptive counseling: Patient agrees she does not good at taking pills every day. Discussed Depo-Provera prior to leaving versus prescription for patches, rings. We will follow-up in clinic for LARC.
[2022-10-11] MEDS ORDERED: miSOPROStoL 100 MCG TABLET BC SCH (02:00)
[2022-10-11] MEDS ORDERED: LACTATED RINGERS 1,000 ML IV SCH ×2 (02:00→16:00)
[2022-10-11] MEDS ORDERED: IRON DEXTRAN 1,000 MG in SODIUM CHLORIDE 0.9% 250 ML IV ONE (08:20)
--- NOTE | 2022-10-11 08:21 | PROVIDER PROGRESS NOTE ---
Subjective - Prog Note Date Prog Note Date: 10/11/22 Prog Note Time: 08:20 - Subjective Pt reports feeling: Improved Subjective: Subjective: Admission for observation, no acute events. Bleeding has been minimal since arrival to the floor. Has not been out of bed. Feels weak, but no lightheadedness. Denies pain. Objective - Vital Signs/Intake & Output Vital Signs: Vital Signs x48h Temp Pulse Pulse Resp BP BP Pulse Ox 10/11/22 08:09 99 10/11/22 08:00 91 16 114/70 99 10/11/22 07:00 93 14 110/73 97 10/11/22 06:00 98.2 F 90 16 110/71 99 10/11/22 05:00 91 16 109/68 100 10/11/22 04:00 96 15 111/72 100 10/11/22 03:00 81 16 117/65 99 10/11/22 02:58 98 10/11/22 02:30 98 10/11/22 02:15 99 10/11/22 02:12 98.4 F 70 18 109/66 99 10/11/22 01:21 70 18 109/71 99 10/11/22 00:31 77 12 114/79 100 Intake & Output: Intake & Output 10/08/22 10/09/22 10/10/22 10/11/22 23:59 23:59 23:59 23:59 Intake Total 110 1999 Output Total 0 Balance 110 1999 - Lab Results Fish Bones: 10/11/22 08:25 10/10/22 22:53 Other Labs: Lab Results x24hrs 10/10/22 10/10/22 10/10/22 Range/Units 23:50 23:50 22:57 WBC (4.8-10.8) x10^3/uL RBC (4.20-5.40) 10^6/uL Hgb 7.5 L (12.0-16.0) g/dL Hct 23.1 L (37.0-47.0) % MCV (81.0-99.0) fL MCH (27.0-31.0) pg MCHC (32.0-36.0) g/dL RDW (12.0-15.0) % Plt Count (130-450) 10^3/uL MPV (7.9-10.8) fL Neut # (Auto) (1.5-6.6) 10^3/uL Lymph # (Auto) (1.5-3.5) 10^3/uL [place] # (Auto) (0.0-1.0) 10^3/uL Eos # (Auto) (0.0-0.7) 10^3/uL Baso # (Auto) (0.0-0.1) 10^3/uL Absolute Nucleated RBC x10^3/uL Nucleated RBC % /100WBC Sodium (135-145) mmol/L Potassium (3.5-5.0) mmol/L Chloride (101-111) mmol/L Carbon Dioxide (21-32) mmol/L Anion Gap (6-13) BUN (6-20) mg/dL Creatinine (0.4-1.0) mg/dL Estimated GFR (MDRD) (>89) Glucose (70-100) mg/dL Calcium (8.5-10.3) mg/dL Total Bilirubin (0.2-1.0) mg/dL AST (10-42) IU/L ALT (10-60) IU/L Alkaline Phosphatase (42-121) IU/L Total Protein (6.7-8.2) g/dL Albumin (3.2-5.5) g/dL Globulin (2.1-4.2) g/dL Albumin/Globulin Ratio (1.0-2.2) Lipase (22-51) U/L Serum HCG, Qual HCG, Quant mIU/mL SARS-CoV-2 (PCR) NOT DETECTED Blood Type Blood Type Recheck A POSITIVE Antibody Screen Crossmatch IS Only 10/10/22 10/10/22 10/10/22 Range/Units 22:55 22:53 22:53 WBC (4.8-10.8) x10^3/uL RBC (4.20-5.40) 10^6/uL Hgb (12.0-16.0) g/dL Hct (37.0-47.0) % MCV (81.0-99.0) fL MCH (27.0-31.0) pg MCHC (32.0-36.0) g/dL RDW (12.0-15.0) % Plt Count (130-450) 10^3/uL MPV (7.9-10.8) fL Neut # (Auto) (1.5-6.6) 10^3/uL Lymph # (Auto) (1.5-3.5) 10^3/uL [place] # (Auto) (0.0-1.0) 10^3/uL Eos # (Auto) (0.0-0.7) 10^3/uL Baso # (Auto) (0.0-0.1) 10^3/uL Absolute Nucleated RBC x10^3/uL Nucleated RBC % /100WBC Sodium 131 L (135-145) mmol/L Potassium 4.8 (3.5-5.0) mmol/L Chloride 102 (101-111) mmol/L Carbon Dioxide 17 L (21-32) mmol/L Anion Gap 12.0 (6-13) BUN 17 (6-20) mg/dL Creatinine 1.4 H (0.4-1.0) mg/dL Estimated GFR (MDRD) 44 L (>89) Glucose 171 H (70-100) mg/dL Calcium 8.0 L (8.5-10.3) mg/dL Total Bilirubin 0.5 (0.2-1.0) mg/dL AST 18 (10-42) IU/L ALT 10 (10-60) IU/L Alkaline Phosphatase 84 (42-121) IU/L Total Protein 5.6 L (6.7-8.2) g/dL Albumin 2.3 L (3.2-5.5) g/dL Globulin 3.3 (2.1-4.2) g/dL Albumin/Globulin Ratio 0.7 L (1.0-2.2) Lipase 24 (22-51) U/L Serum HCG, Qual POSITIVE HCG, Quant 69904.00 mIU/mL SARS-CoV-2 (PCR) Blood Type Blood Type Recheck Antibody Screen Crossmatch IS Only 10/10/22 10/10/22 Range/Units 22:53 22:53 WBC 10.9 H (4.8-10.8) x10^3/uL RBC 2.63 L (4.20-5.40) 10^6/uL Hgb 8.1 L (12.0-16.0) g/dL Hct 26.0 L (37.0-47.0) % MCV 98.9 (81.0-99.0) fL MCH 30.8 (27.0-31.0) pg MCHC 31.2 L (32.0-36.0) g/dL RDW 14.5 (12.0-15.0) % Plt Count 280 (130-450) 10^3/uL MPV 8.9 (7.9-10.8) fL Neut # (Auto) 7.8 H (1.5-6.6) 10^3/uL Lymph # (Auto) 2.0 (1.5-3.5) 10^3/uL [place] # (Auto) 0.8 (0.0-1.0) 10^3/uL Eos # (Auto) 0.1 (0.0-0.7) 10^3/uL Baso # (Auto) 0.0 (0.0-0.1) 10^3/uL Absolute Nucleated RBC 0.00 x10^3/uL Nucleated RBC % 0.0 /100WBC Sodium (135-145) mmol/L Potassium (3.5-5.0) mmol/L Chloride (101-111) mmol/L Carbon Dioxide (21-32) mmol/L Anion Gap (6-13) BUN (6-20) mg/dL Creatinine (0.4-1.0) mg/dL Estimated GFR (MDRD) (>89) Glucose (70-100) mg/dL Calcium (8.5-10.3) mg/dL Total Bilirubin (0.2-1.0) mg/dL AST (10-42) IU/L ALT (10-60) IU/L Alkaline Phosphatase (42-121) IU/L Total Protein (6.7-8.2) g/dL Albumin (3.2-5.5) g/dL Globulin (2.1-4.2) g/dL Albumin/Globulin Ratio (1.0-2.2) Lipase (22-51) U/L Serum HCG, Qual HCG, Quant mIU/mL SARS-CoV-2 (PCR) Blood Type A POSITIVE Blood Type Recheck Antibody Screen NEGATIVE Crossmatch IS Only See Detail - Other Results/Comments Other Results/Comments: Objective: Physical exam: Constitutional: alert, oriented, no acute distress Cardiovascular: Regular rate and rhythm. Respiratory: No respiratory distress. Abdomen: Soft, nontender Extremities: No swelling or tenderness. No cords. Distal pulses intact. Psych: affect and mood appropriate, normal interaction, good eye contact. Assessment/Plan - Problem List (1) Incomplete miscarriage with blood clot Impression: -Repeat hemoglobin and hematocrit 6.1/18.2. Discussed blood transfusion with patient and will transfuse 2 units of RBCs. -Plan for iron dextran infusion -Transvaginal ultrasound pending -N.p.o. until after ultrasound (2) Anemia due to blood loss, acute Impression: Blood transfusion pending. Iron infusion. Vitals stable. Will repeat H/H after transfusion is completed. (3) Asthma Impression: No issues currently. (4) Methadone dependence Impression: Last dose yeterday AM. (5) Contraception management Impression: Nexplanon in place. Considering Depo-provera as interim method. (6) Uses contraceptive implant for control Impression: Due for removal. Will follow up in clinic for LARC. (7) Tobacco abuse counseling Impression: Encouraged cessation
[2022-10-11 08:42] LABS: HCT - HEMATOCRIT 18.2 % (37.0-47.0); HGB - HEMOGLOBIN 6.1 g/dL (12.0-16.0)
--- NOTE | 2022-10-11 11:38 | Ultrasound Report ---
PROCEDURE: OB First Trimester w/TV INDICATIONS: Incomplete OUTSIDE/PRIOR DATING DATA: Last menstrual period (LMP): Unknown. LMP-based estimated date of delivery (UMER): Not applicable. First dating scan (date and location): Current study. Estimated date of delivery (UMER) from first dating scan: Not applicable. TECHNIQUE: Real-time scanning was performed of the fetus and maternal pelvic organs, with image documentation. Endovaginal scanning was also performed to better visualize the fetus and maternal ovaries. COMPARISON: 10/10/2022 FINDINGS: Mildly enlarged uterus with diffusely thickened and mildly vascular endometrium. The endometrium jorge ures up to 4.7 cm and contains hyperechoic, slightly heterogeneous, predominantly avascular material. The cervix is open and hyperechoic material is present in the endocervix. No visible gestational sac or other products of conception. There is a dominant follicle in the right ovary. Left ovary is within normal limits. No free pelvic f luid. IMPRESSION: 1. Retained hyperechoic material within the uterus and open cervix suggesting in progress. 2. Preliminary results given by the director of community center to the ordering provider immediately following the st udy. Reviewed by: Alejandra Salcido MD on 10/11/2022 11:37 AM PST Approved by: Alejandra Salcido MD on 10/11/2022 11:37 AM PST Station ID: [id number]
[2022-10-11] MEDS ORDERED: LIDOCAINE MPF 2%-EPI 1:200000 20 ML VIAL ONE (13:38)
--- NOTE | 2022-10-11 14:16 | PROVIDER PROGRESS NOTE ---
Subjective - Prog Note Date Prog Note Date: 10/11/22 Prog Note Time: 14:12 - Subjective Subjective: Repeat vaginal exam allowed passage of clots, apprximately 200 ml. Then tissue passed but remained adhered to uterine wall. Using ring forceps, a moderate ammount of placental-appearing tissue, but could not extract whole. Discussed dilation and curretage for removal of placental tissue. Counseled on the risks, benefits, and alternatives. Discussed bleeding, infection, adhesions in the uterus. Perforation also a possibility, but less as she is already dilated. Will give doxycyline 200mg prior to procedure. Objective - Vital Signs/Intake & Output Vital Signs: Vital Signs x48h Temp Pulse Resp BP Pulse Ox 10/11/22 13:33 99.1 F 90 20 108/63 97 10/11/22 13:16 98.8 F 89 16 111/69 98 10/11/22 12:36 99.1 F 87 14 114/66 98 10/11/22 11:00 90 16 111/62 96 10/11/22 10:45 94 14 108/64 96 10/11/22 10:28 99.0 F 88 14 107/58 L 95 10/11/22 10:10 99.1 F 89 16 105/63 94 10/11/22 09:00 93 16 121/70 99 10/11/22 08:09 99 10/11/22 08:00 91 16 114/70 99 10/11/22 07:00 93 14 110/73 97 Intake & Output: Intake & Output 10/08/22 10/09/22 10/10/22 10/11/22 23:59 23:59 23:59 23:59 Intake Total 110 3218 Output Total 0 Balance 110 3218 - Lab Results Fish Bones: 10/11/22 08:25 10/10/22 22:53 Other Labs: Lab Results x24hrs 10/11/22 10/10/22 10/10/22 Range/Units 08:25 23:50 23:50 WBC (4.8-10.8) x10^3/uL RBC (4.20-5.40) 10^6/uL Hgb 6.1 L* 7.5 L (12.0-16.0) g/dL Hct 18.2 L* 23.1 L (37.0-47.0) % MCV (81.0-99.0) fL MCH (27.0-31.0) pg MCHC (32.0-36.0) g/dL RDW (12.0-15.0) % Plt Count (130-450) 10^3/uL MPV (7.9-10.8) fL Neut # (Auto) (1.5-6.6) 10^3/uL Lymph # (Auto) (1.5-3.5) 10^3/uL [place] # (Auto) (0.0-1.0) 10^3/uL Eos # (Auto) (0.0-0.7) 10^3/uL Baso # (Auto) (0.0-0.1) 10^3/uL Absolute Nucleated RBC x10^3/uL Nucleated RBC % /100WBC Sodium (135-145) mmol/L Potassium (3.5-5.0) mmol/L Chloride (101-111) mmol/L Carbon Dioxide (21-32) mmol/L Anion Gap (6-13) BUN (6-20) mg/dL Creatinine (0.4-1.0) mg/dL Estimated GFR (MDRD) (>89) Glucose (70-100) mg/dL Calcium (8.5-10.3) mg/dL Total Bilirubin (0.2-1.0) mg/dL AST (10-42) IU/L ALT (10-60) IU/L Alkaline Phosphatase (42-121) IU/L Total Protein (6.7-8.2) g/dL Albumin (3.2-5.5) g/dL Globulin (2.1-4.2) g/dL Albumin/Globulin Ratio (1.0-2.2) Lipase (22-51) U/L Serum HCG, Qual HCG, Quant mIU/mL SARS-CoV-2 (PCR) Blood Type Blood Type Recheck A POSITIVE Antibody Screen Crossmatch IS Only 10/10/22 10/10/22 10/10/22 Range/Units 22:57 22:55 22:53 WBC (4.8-10.8) x10^3/uL RBC (4.20-5.40) 10^6/uL Hgb (12.0-16.0) g/dL Hct (37.0-47.0) % MCV (81.0-99.0) fL MCH (27.0-31.0) pg MCHC (32.0-36.0) g/dL RDW (12.0-15.0) % Plt Count (130-450) 10^3/uL MPV (7.9-10.8) fL Neut # (Auto) (1.5-6.6) 10^3/uL Lymph # (Auto) (1.5-3.5) 10^3/uL [place] # (Auto) (0.0-1.0) 10^3/uL Eos # (Auto) (0.0-0.7) 10^3/uL Baso # (Auto) (0.0-0.1) 10^3/uL Absolute Nucleated RBC x10^3/uL Nucleated RBC % /100WBC Sodium (135-145) mmol/L Potassium (3.5-5.0) mmol/L Chloride (101-111) mmol/L Carbon Dioxide (21-32) mmol/L Anion Gap (6-13) BUN (6-20) mg/dL Creatinine (0.4-1.0) mg/dL Estimated GFR (MDRD) (>89) Glucose (70-100) mg/dL Calcium (8.5-10.3) mg/dL Total Bilirubin (0.2-1.0) mg/dL AST (10-42) IU/L ALT (10-60) IU/L Alkaline Phosphatase (42-121) IU/L Total Protein (6.7-8.2) g/dL Albumin (3.2-5.5) g/dL Globulin (2.1-4.2) g/dL Albumin/Globulin Ratio (1.0-2.2) Lipase (22-51) U/L Serum HCG, Qual POSITIVE HCG, Quant 05496.00 mIU/mL SARS-CoV-2 (PCR) NOT DETECTED Blood Type Blood Type Recheck Antibody Screen Crossmatch IS Only 10/10/22 10/10/22 10/10/22 Range/Units 22:53 22:53 22:53 WBC 10.9 H (4.8-10.8) x10^3/uL RBC 2.63 L (4.20-5.40) 10^6/uL Hgb 8.1 L (12.0-16.0) g/dL Hct 26.0 L (37.0-47.0) % MCV 98.9 (81.0-99.0) fL MCH 30.8 (27.0-31.0) pg MCHC 31.2 L (32.0-36.0) g/dL RDW 14.5 (12.0-15.0) % Plt Count 280 (130-450) 10^3/uL MPV 8.9 (7.9-10.8) fL Neut # (Auto) 7.8 H (1.5-6.6) 10^3/uL Lymph # (Auto) 2.0 (1.5-3.5) 10^3/uL [place] # (Auto) 0.8 (0.0-1.0) 10^3/uL Eos # (Auto) 0.1 (0.0-0.7) 10^3/uL Baso # (Auto) 0.0 (0.0-0.1) 10^3/uL Absolute Nucleated RBC 0.00 x10^3/uL Nucleated RBC % 0.0 /100WBC Sodium 131 L (135-145) mmol/L Potassium 4.8 (3.5-5.0) mmol/L Chloride 102 (101-111) mmol/L Carbon Dioxide 17 L (21-32) mmol/L Anion Gap 12.0 (6-13) BUN 17 (6-20) mg/dL Creatinine 1.4 H (0.4-1.0) mg/dL Estimated GFR (MDRD) 44 L (>89) Glucose 171 H (70-100) mg/dL Calcium 8.0 L (8.5-10.3) mg/dL Total Bilirubin 0.5 (0.2-1.0) mg/dL AST 18 (10-42) IU/L ALT 10 (10-60) IU/L Alkaline Phosphatase 84 (42-121) IU/L Total Protein 5.6 L (6.7-8.2) g/dL Albumin 2.3 L (3.2-5.5) g/dL Globulin 3.3 (2.1-4.2) g/dL Albumin/Globulin Ratio 0.7 L (1.0-2.2) Lipase 24 (22-51) U/L Serum HCG, Qual HCG, Quant mIU/mL SARS-CoV-2 (PCR) Blood Type A POSITIVE Blood Type Recheck Antibody Screen NEGATIVE Crossmatch IS Only See Detail
[2022-10-11] MEDS ORDERED: SUCCINYLCHOLINE 200 MG/10 ML VIAL ONE (14:19)
[2022-10-11] MEDS ORDERED: ONDANSETRON 4 MG/2 ML VIAL ONE (14:20)
[2022-10-11] MEDS ORDERED: MIDAZOLAM 2 MG/2 ML VIAL ONE ×2 (14:21→14:48)
[2022-10-11] MEDS ORDERED: fentaNYL 100 MCG/2 ML VIAL ONE (14:21)
[2022-10-11] MEDS ORDERED: ACETAMINOPHEN 1,000 MG/100 ML 1,000 MG/100 ML BAG IV ONE (14:42)
[2022-10-11] MEDS ORDERED: METHYLERGONOVINE 0.2 MG/ML VIAL ONE (14:55)
[2022-10-11] MEDS ORDERED: miSOPROStoL 200 MCG TABLET ONE ×2 (14:56→15:03)
[2022-10-11] MEDS ORDERED: DOXYCYCLINE 100 MG TABLET PO ONE (15:00)
--- NOTE | 2022-10-11 15:30 | OPERATIVE REPORT ---
Operative Report - General Admit Date: 10/11/22 Planned Procedure: Dilation and curretage Pre-Op Diagnosis: Retained products of conception Procedure Performed: Dilation and curretage with suction Post Op Diagnosis: Retained placenta - Procedure Note Primary Surgeon: Jose Cruz Anesthesia Technique: General ET tube Pathology: Products of conception IV Fluids (mL): 800 Estimated Blood Loss (mL): 700 Urine Output (mL): 150 Findings: Large amount of fragmented placental tissue Complications: hemorrhage - Other Other Information/Narrative: Prior to the procedure, patient received 200 mg of oral doxycycline. General anesthesia was obtained without difficulty Patient was placed in dorsolithotomy position with great white stirrups. The pelvis was prepped and the patient was draped in the usual fashion. Careful pelvic examination is performed to locate the position of the uterus and noted moderate dilation of the cervix, 5 cm dilated as well as a distended cervix.. A bivalve speculum was placed in the vagina and the cervix was grasped with a single-tooth tenaculum and gently drawn towards the vaginal outlet. Using ring forceps, the clot and placental tissue was removed from the cervical os, and approximately an eight 8 x 5 piece of placental tissue was removed from the uterus. Then sharp curreting was performed removing many more fragmens of placenta.This was a much larger placenta than anticipated. At that point, the patient began having brisk bleeding, so 200mcg methergine was administered, while other uterotonics were prepated. Due to the possibility of hysterectomy, an additional surgeon was called to the room and a bakri ballon was brought out. As she was bleeding briskly, a 12 mm rigid suction catheter was used for suction. An additional 2 units of blood were ordered to the patient. The catheter was placed without suction into the uterine cavity. Blood and products of conception were collected in the section catheter container. Oxytocin was then started on the patient. The products were collected on a Telfa pad and in a basin. Hemostasis was noted, and 1000mcg of misoprostol was given per rectum. The tenaculum was removed. Tenaculum sites were hemostatic. Upon examination the patient was hemostatic and all instruments were removed. Patient was returned to dorsal supine position and awoke from anesthesia. She was taken to the PACU in stable condition.
[2022-10-11] MEDS ORDERED: LACTATED RINGERS 1,000 ML IV ONE (15:43)
--- NOTE | 2022-10-11 15:49 | ANESTHESIA ---
Pre-Anesthesia VS, & Labs - Diagnosis incomplete - Procedure suction D&E Vital Signs: Temp Pulse Resp BP Pulse Ox O2 Flow Rate 36.5 C 72 16 114/71 98 10/11/22 15:44 10/11/22 15:44 10/11/22 15:44 10/11/22 15:44 10/11/22 15:44 Height: 5 ft 4 in Weight (kg): 85.3 kg Body Mass Index: 32.3 BMI Classification: Obese - NPO Other Last Fluid Intake: pt drinking fluids - Is Patient ?: Yes - Lab Results Current Lab Results: Laboratory Tests 10/11/22 08:25: Hgb 6.1 L*, Hct 18.2 L* 10/10/22 23:50: Hgb 7.5 L, Hct 23.1 L 10/10/22 23:50: Blood Type Recheck A POSITIVE 10/10/22 22:55: HCG, Quant 40720.00 10/10/22 22:53: Serum HCG, Qual POSITIVE 10/10/22 22:53: Sodium 131 L, Potassium 4.8, Chloride 102, Carbon Dioxide 17 L, Anion Gap 12.0, BUN 17, Creatinine 1.4 H, Estimated GFR (MDRD) 44 L, Glucose 171 H, Calcium 8.0 L, Total Bilirubin 0.5, AST 18, ALT 10, Alkaline Phosphatase 84, Total Protein 5.6 L, Albumin 2.3 L, Globulin 3.3, Albumin/Globulin Ratio 0.7 L, Lipase 24 10/10/22 22:53: WBC 10.9 H, RBC 2.63 L, Hgb 8.1 L, Hct 26.0 L, MCV 98.9, MCH 30.8, MCHC 31.2 L, RDW 14.5, Plt Count 280, MPV 8.9, Neut # (Auto) 7.8 H, Lymph # (Auto) 2.0, [place] # (Auto) 0.8, Eos # (Auto) 0.1, Baso # (Auto) 0.0, Absolute Nucleated RBC 0.00, Nucleated RBC % 0.0 10/10/22 22:53: Blood Type A POSITIVE, Antibody Screen NEGATIVE, Crossmatch IS Only See Detail Fish Bones: 10/11/22 08:25 10/10/22 22:53 Home Medications and Allergies Active Medications Ibuprofen (Ibuprofen 600 Mg Tablet) 600 mg PO Q6HR PRN PRN Reason: Pain 1 to 4 Misoprostol (Misoprostol 100 Mcg Tablet) 800 mcg BC ONCE JOVANNY Stop: 10/12/22 01:59 Last Admin: 10/11/22 02:45 Dose: 800 mcg Ondansetron HCl (Ondansetron Odt 4 Mg Tablet) 4 mg TL Q6HR PRN PRN Reason: Nausea / Vomiting Sodium Chloride (Sodium Chloride Flush 0.9% 10 Ml Syringe) 10 ml IVP PRN PRN PRN Reason: NEEDED PER PROVIDER ORDERS Sodium Chloride (Sodium Chloride Flush 0.9% 10 Ml Syringe) 10 ml IVP 0100,0900,1700 JOVANNY Methadone [Methadone Hcl] 150 mg PO DAILY 12/17/18 Allergies/Adverse Reactions: Allergies Allergy/AdvReac Type Severity Reaction Status Date / Time No Known Drug Allergies Allergy Verified 10/10/22 22:45 Anes History & Medical History - Anesthetic History Anesthesia Complications: reports: No previous complications Family history of Anesthesia Complications: Denies Family history of Malignant Hyperthermia: Denies - Medical History Cardiovascular: reports: None Pulmonary: reports: Asthma, Other (smokes) Gastrointestinal: reports: None Urinary: reports: None Neuro: reports: None Musculoskeletal: reports: None Endocrine/Autoimmune: reports: None Blood Disorders: reports: None Skin: reports: None Smoking Status: Current every day smoker 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
[2022-10-11] MEDS ORDERED: ATROPINE ABBOJECT 1 MG/10 ML SYRINGE IVP PRN (15:50)
[2022-10-11] MEDS ORDERED: NALOXONE 0.4 MG/ML VIAL IVP PRN (15:50)
[2022-10-11] MEDS ORDERED: ONDANSETRON 4 MG/2 ML VIAL IVP PRN (15:50)
[2022-10-11] MEDS ORDERED: fentaNYL 100 MCG/2 ML VIAL IVP PRN (15:50)
[2022-10-11] MEDS ORDERED: MORPHINE 2 MG/ML CARPUJECT IVP PRN (15:50)
[2022-10-11] MEDS ORDERED: METOCLOPRAMIDE 10 MG/2 ML VIAL IVP PRN (15:50)
[2022-10-11] MEDS ORDERED: HYDROmorphone 0.5 MG/0.5 ML SYRINGE IVP PRN (15:50)
[2022-10-11] MEDS ORDERED: ePHEDrine 50 MG/ML VIAL IVP PRN (15:50)
--- NOTE | 2022-10-11 15:52 | ANESTHESIA POST OP EVALUATION ---
Anesthesia Post Eval - Post Anesthesia Eval Vitals: Last Vital Signs Temp 36.5 C 10/11/22 15:44 Pulse 72 10/11/22 15:44 Resp 16 10/11/22 15:44 BP 114/71 10/11/22 15:44 Pulse Ox 98 10/11/22 15:44 O2 Flow Rate CV Function Including HR & BP: Stable Pain Control: Satisfactory Nausea & Vomiting: Negative Mental Status: Baseline Respiratory Status: Airway Patent Hydration Status: Satisfactory Anesthesia Complications: None
[2022-10-11] MEDS: SODIUM CHLORIDE FLUSH 0.9% 10 ML SYRINGE IVP SCH (19:45)
[2022-10-11 23:46] LABS: BASOPHILS % (AUTO) 0.2 %; EOSINOPHILS # (AUTO) 0.2 10^3/uL (0.0-0.7); EOSINOPHILS % (AUTO) 2.3 %; HCT - HEMATOCRIT 25.2 % (37.0-47.0); HGB - HEMOGLOBIN 8.4 g/dL (12.0-16.0); LYMPHOCYTES # (AUTO) 2.2 10^3/uL (1.5-3.5); LYMPHOCYTES % (AUTO) 23.3 %; MEAN CORPUSCULAR HEMOGLOBIN 30.3 pg (27.0-31.0); MEAN CORPUSCULAR HGB CONC 33.3 g/dL (32.0-36.0); MEAN PLATELET VOLUME 8.7 fL (7.9-10.8); MONOCYTES # (AUTO) 0.5 10^3/uL (0.0-1.0); MONOCYTES % (AUTO) 5.7 %; NEUTROPHILS # (AUTO) 6.4 10^3/uL (1.5-6.6); NEUTROPHILS % (AUTO) 68.2 %; PLT - PLATELET COUNT 138 10^3/uL (130-450); RED BLOOD COUNT 2.77 10^6/uL (4.20-5.40); RED CELL DISTRIBUTION WIDTH 15.3 % (12.0-15.0); WHITE BLOOD COUNT 9.5 x10^3/uL (4.8-10.8)
[2022-10-12] MEDS: SODIUM CHLORIDE FLUSH 0.9% 10 ML SYRINGE IVP SCH (04:10)
[2022-10-12 07:36] LABS: BASOPHILS % (AUTO) 0.1 %; EOSINOPHILS # (AUTO) 0.3 10^3/uL (0.0-0.7); HCT - HEMATOCRIT 23.6 % (37.0-47.0); LYMPHOCYTES # (AUTO) 2.2 10^3/uL (1.5-3.5); LYMPHOCYTES % (AUTO) 27.9 %; MEAN CORPUSCULAR HGB CONC 33.9 g/dL (32.0-36.0); MEAN CORPUSCULAR VOLUME 91.5 fL (81.0-99.0); MONOCYTES # (AUTO) 0.5 10^3/uL (0.0-1.0); MONOCYTES % (AUTO) 5.8 %; NEUTROPHILS % (AUTO) 61.8 %; PLT - PLATELET COUNT 142 10^3/uL (130-450); RED BLOOD COUNT 2.58 10^6/uL (4.20-5.40); RED CELL DISTRIBUTION WIDTH 15.4 % (12.0-15.0)
--- NOTE | 2022-10-12 10:09 | Discharge Plan ---
Discharge Plan Problem Reviewed?: Yes Disposition: Home, Self Care Condition: Stable Diet: Regular Activity Restrictions: No Restrictions Shower Restrictions: No Driving Restrictions: No Instruction Topics: Dilation and Curettage Dc No Smoking: If you smoke, Please STOP! Call for help. Follow-up with: Jose Cruz MD [Provider Admit Priv/Credential] -
--- NOTE | 2022-10-12 10:13 | DISCHARGE SUMMARY ---
"Discharge Summary Admit Date: 10/10/22 Discharge Date: 10/12/22 Discharging Provider: Jose Cruz MD Code Status: Attempt Resuscitation Condition at Discharge: Stable Discharge Disposition: 01 Home, Self Care - DIAGNOSES Admission Diagnoses: Incomplete Acute blood loss anemia Tabacco abuse Implantable contraception device present Methadone use Discharge Diagnoses with Status of Each Condition: Incomplete Acute blood loss anemia Tabacco abuse Implantable contraception device present Methadone use Status post dilation and curretage - HPI History of Present Illness: Patient is a 32-year-old -0-2-1 postoperative day 1 from a dilation and curettage for retained placenta. Pain is well controlled. Ambulating without difficulty. No calf pain or tenderness. No shortness of breath or chest pain. Overnight events: No acute events Objective: Physical exam: Constitutional: alert, oriented, no acute distress Cardiovascular: Regular rate and rhythm. No murmurs, rubs, gallops. Respiratory: No respiratory distress. Clear to auscultation bilaterally. Abdomen: Soft, nontender. Uterus below umbilicus Extremities: No swelling or tenderness. No cords. Distal pulses intact. Psych: affect and mood appropriate, normal interaction, good eye contact. - CONSULTS | PROCEDURES Procedures: Dilation and curettage with suction, Nexplanon removal and replacement - HOSPITAL COURSE Hospital Course: Patient was brought to the ED for hemorrhage. Bleeding stabilized with tranexamic acid and an misoprostol and patient was observed overnight. She had drop in hemoglobin from 8 down to 7.5, but overnight subsequently dropped to 6.1 after she equilibrated. She was kept for 2 units of PRBCs. In the interim, ultrasound still showed tissue in the uterus, concerning for retained products of conception and exam at that time showed clot and then placental like tissue. Due to the risk of infection, decision was then made to take her back for dilation and curettage for extraction of the placental tissue. Approximately 20-week gestation size placental tissue was removed from the uterus using combination of sharp and suction curetting. She did have brisk bleeding during the procedure with a hemorrhage requiring oxytocin, Methergine, misoprostol which stopped the bleeding. She is observed again overnight with no significant bleeding or complication but did get 2 additional units of PRBCs due to the intraoperative bleeding. Postoperatively she did well and had a repeat hemoglobin of 8.0 the following day. As her Nexplanon was due for removal, she had a removal and replacement done prior to discharge. Patient was counseled on the worry of uterine infection and was given doxycycline 200 mg prior to the D&C as well as 2 g cefotetan postoperative day 1 for concern of prolonged retention of placental tissue. She was given warning signs including abdominal tenderne ss, fever, chills, abnormal discharge. Patient has follow-up next week with me in clinic with return precautions. - ALLERGIES Allergies/Adverse Reactions: Allergies Allergy/AdvReac Type Severity Reaction Status Date / Time No Known Drug Allergies Allergy Verified 10/10/22 22:45 - MEDICATIONS Home Medications: Ambulatory Orders Medication Instructions Recorded Confirmed Methadone [Methadone Hcl] 150 mg PO DAILY 12/17/18 08/05/22 Albuterol 2.5 mg INH Q4H PRN #30 ml 06/09/22 08/05/22 Albuterol Sulf [Ventolin Hfa 1 - 2 puffs INH Q4HR PRN #1 gm 06/09/22 08/05/22 Inhaler] Albuterol 2.5 mg INH Q4H PRN #30 ml 08/05/22 Albuterol Sulf [Ventolin Hfa 1 - 2 puffs INH Q4HR PRN #1 each 08/05/22 Inhaler] Ipratropium/Albuterol [Duoneb] 3 ml INH Q6H PRN #1 each 08/05/22 predniSONE [Deltasone] 20 mg PO [id number] #21 tab 08/05/22 Ferrous Sulfate [Feosol] 325 mg PO BID 120 Days #240 tablet 10/12/22 - LABS Result Diagrams: 10/12/22 07:10 10/10/22 22:53 - FOLLOW UP Follow Up: With Jose Cruz MD at [facility] women[facility] care on 10/17/2022 at 3 PM - TIME SPENT Time Spent in Discharge (Minutes): 30"
[2022-10-12 10:28] VITALS: BP 105/59
[2022-10-12] MEDS ORDERED: ETONOGESTREL 68 MG IMPLANT SUBQ ONE (10:53)
--- NOTE | 2022-10-12 10:53 | PROCEDURE REPORT ---
Hospitalist Procedure Note - Procedure Note Procedure Note: Procedure date: 10/12/2022 Procedure: Nexplanon removal and replacement Indication: Contraceptive management Patient consent: Risks, benefits and alternative of Nexplanon reviewed with patient. Informed patient that Nexplanon has been shown to be 99% effective at preventing however it does not protect against sexually transmitted infections. Reviewed risks of insertion including but not limited to pain, irritation, swelling or bruising at insertion site. Additional risks include scarring, injury to nerves or blood vessels in the arm and risk of needing surgery in the hospital to remove the implant. Patient voiced understanding and agreed to proceed with Nexplanon insertion. Anesthesia: 5 mL of 2% lidocaine with epinephrine Complications: None Estimated blood loss: Minimal Pre-op diagnosis: Contraceptive management Postop diagnosis: Status post Nexplanon removal and replacement Procedure summary: Patient was placed in the dorsal supine position. Left arm was positioned and the Nexplanon was palpated below the skin. The area was cleansed with a alcohol prep pad, then 5 mL of 2% lidocaine with epinephrine was injected under the skin negative wheal under the tip of the Nexplanon. The area was then cleansed with Betadine and a small incision was made in the previous scar with an 11 blade scalpel. The Nexplanon was lifted to the surface and grasped with a forcep and the capsule was cut with a scalpel. The Nexplanon was removed easily. The Applicator was then removed from its packaging and inserted into the skin and the previous opening. The device was deployed and removed. The incision was closed with Steri-Strips and covered with a coban bandage. The patient tolerated the procedure well and there were no complications. Lot number [id number] Due for removal 10/12/2025
[2022-10-12] MEDS ORDERED: LIDOCAINE MPF 2%-EPI 1:200000 20 ML VIAL ONE (10:55)
[2022-10-12] MEDS ORDERED: CEFOTETAN DISODIUM 2 GM in SODIUM CHLORIDE 0.9% MINIBAG 100 ML IV SCH (11:00)
[2022-10-12] MEDS ORDERED: SODIUM CHLORIDE 0.9% 250 ML IV SCH (11:13)
== END 2022-10-12 12:00 | disposition home or self-care (01) ==
LOC: EDUNIT# → ED 22:37 → FBP 10-11 01:28 → OBSVTOIN 10-11 01:28 → EEVIPCON 10-11 01:28 → INTOOBSV 10-11 01:28
PROVIDERS: ADMIT Obstetrics & Gynecology; ATTEND Obstetrics & Gynecology
PROC: 10D17Z9 Manual Extraction of Products of Conception, Retained, Via Natural or Artificial Opening (ICD-10-PCS; principal; 2022-10-11 14:30)
PROC: 0JPV0HZ Removal of Contraceptive Device from Upper Extremity Subcutaneous Tissue and Fascia, Open Approach (ICD-10-PCS; 2022-10-12)
DX: O03.1 Delayed or excessive hemorrhage following incomplete spontaneous abortion (principal); O03.2 Embolism following incomplete spontaneous abortion; D62 Acute posthemorrhagic anemia; F17.210 Nicotine dependence, cigarettes, uncomplicated; F11.20 Opioid dependence, uncomplicated; I95.89 Other hypotension; E66.9 Obesity, unspecified; Z68.32 Body mass index [BMI] 32.0-32.9, adult; Z20.822 Contact with and (suspected) exposure to COVID-19; O72.1 Other immediate postpartum hemorrhage; J45.909 Unspecified asthma, uncomplicated
CPT/HCPCS: 11983; 36415; 36430; 59812; 76801; 76817; 76830; 76856; 80053; 83690; 84702; 84703; 85014; 85018; 85025; 86850; 86900; 86901; 86920; 87635; 93975; 96361; 96365; 96367; 96375; 99291; A9270; G0378; J0131; J0330; J1750; J2210; J7120; J7307; P9016

== ENCOUNTER 2023-07-11 15:48 | Emergency (ER) | payer MEDICAID ==
[2023-07-11] MEDS ORDERED: IPRATROPIUM/ALBUTEROL 3 ML NEB INH STA (16:03)
[2023-07-11] MEDS ORDERED: predniSONE 20 MG TABLET PO STA (16:03)
--- NOTE | 2023-07-11 16:23 | ED Physician Documentation ---
PD HPI DYSPNEA - Stated complaint Stated Complaint: SOA/FEVER/WHEEZING/BODY ACHES - Chief complaint Chief Complaint: Resp - History obtained from History obtained from: Patient - Additional information Additional information: Patient is a 32-year-old female with a history of asthma presenting for evaluation of 1 week of nonproductive cough with shortness of air. Patient states that she has been using her nebulizer including today without any significant improvement. She was recently given a prescription for Symbicort inhaler but has not picked this up yet. Denies fever. Took a COVID test yest erday which was negative. 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 : None HEENT: None Psych: None Musculoskeletal: None Derm: None - Past Surgical History Past Surgical History: Yes General: Cholecystectomy Ortho: Other - Present Medications Home Medications: Ambulatory Orders Medication Instructions Recorded Confirmed Methadone [Methadone Hcl] 150 mg PO DAILY 12/17/18 07/11/23 Albuterol 2.5 mg INH Q4H PRN #30 ml 08/05/22 07/11/23 Albuterol Sulf [Ventolin Hfa 1 - 2 puffs INH Q4HR PRN #1 each 08/05/22 07/11/23 Inhaler] Ipratropium/Albuterol [Duoneb] 3 ml INH Q6H PRN #1 each 08/05/22 07/11/23 Albuterol 2.5 mg INH Q4H PRN #30 ml 07/11/23 Albuterol Sulf [Ventolin Hfa 1 - 2 puffs INH Q4HR PRN #1 each 07/11/23 Inhaler] predniSONE [Deltasone] 60 mg PO DAILY 4 Days #12 tablet 07/11/23 - Allergies Allergies/Adverse Reactions: Allergies Allergy/AdvReac Type Severity Reaction Status Date / Time No Known Drug Allergies Allergy Verified 07/11/23 15:54 - Social History Does the pt smoke?: No Smoking Status: Never smoker Does the pt drink ETOH?: No Does the pt have substance abuse?: No - Immunizations Immunizations are current?: No Immunizations: TDAP >10years/unknown - POLST Patient has POLST: No PD ED PE NORMAL - General General: Alert and oriented X 3, No acute distress, Well developed/nourished - HEENT HEENT: Atraumatic, Moist mucous membranes, Pharynx benign - Neck Neck: Supple, no meningeal sign - Cardiac Cardiac: RRR, No murmur - Respiratory Respiratory: No respiratory distress, Other (Diffuse expiratory wheezes) - Abdomen Abdomen: Soft, Non tender - Derm Derm: Warm and dry - Extremities Extremities: No calf tenderness / cord - Neuro Neuro: Normal speech Results - Vitals Vitals: Vital Signs - 24 hr 07/11/23 07/11/23 07/11/23 15:51 16:22 16:35 Temperature 36.3 C L Heart Rate 94 89 94 Respiratory 18 21 18 Rate Blood Pressure 124/79 O2 Saturation 96 07/11/23 17:14 Temperature Heart Rate Respiratory Rate Blood Pressure 118/75 O2 Saturation Oxygen O2 Source Room air PD Medical Decision Making - ED course Complexity details: reviewed results, re-evaluated patient, d/w patient ED course: Patient is a 32-year-old female with a history of asthma presenting for evaluation of 1 week of cough and worsening shortness of air despite use of nebulizer at home. She was given a prescription for Symbicort but has not filled this yet. Vital signs are stable. She is wheezing but does not appear to be an extremis. Patient started on oral prednisone and also given a DuoNeb with improvement in her symptoms on repeat exam. Chest x-ray which I reviewed is negative for pneumonia. She has taken a COVID test which was negative at home and declines flu swab here. Patient will continue on a course of prednison e and was also given refills of albuterol. She is counseled on treatment plan as well as concerning symptoms to return for. Departure - Departure Disposition: 01 Home, Self Care Clinical Impression: Asthma exacerbation Condition: Stable Instructions: ED Bronchitis Asthmatic Prescriptions: Albuterol Sulf [Ventolin Hfa Inhaler] 1 - 2 puffs INH Q4HR PRN #1 each PRN Reason: Shortness Of Air/Wheezing Albuterol 2.5 mg INH Q4H PRN #30 ml PRN Reason: Wheezing predniSONE [Deltasone] 60 mg PO DAILY 4 Days #12 tablet Comments: You were treated for an asthma exacerbation and had been started on a course of oral prednisone (next dose 07/12/23). Please fill your prescription for Symbicort. In addition I have also sent prescriptions for refills of your albuterol inhaler as well as nebulizer to [facility] in [place]. Your chest x- ray today does not show signs of pneumonia. You develop any worsening symptoms please return to the ER. Forms: PCP List Discharge Date/Time: 07/11/23 17:14
--- NOTE | 2023-07-11 16:26 | XRAY Report ---
PROCEDURE: Chest 1 View X-Ray INDICATIONS: cough/SOA x 1 week TECHNIQUE: One view of the chest was acquired. COMPARISON: Chest radiograph on August 05, 2022. FINDINGS: Surgical changes and devices: None. Lungs and pleura: No pleural effusions or pneumothorax. Lungs are clear. Mediastinum: Mediastinal contours appear normal. Heart size is normal. Bones and chest wall: No suspicious bony lesions. Overlying soft tissues appear unremarkable. IMPRESSION: No acute cardiopulmonary process. Reviewed by: Veronica Walker MD on 07/11/2023 4:24 PM PDT Approved by: Veronica Walker MD on 07/11/2023 4:24 PM PDT Station ID: [id number]
[2023-07-11 16:38] VITALS: O2SAT 96
[2023-07-11 17:15] VITALS: BP 118/75
== END 2023-07-11 17:14 | disposition home or self-care (01) ==
LOC: ED 15:48
DX: J45.901 Unspecified asthma with (acute) exacerbation (principal)
CPT/HCPCS: 71045; 94640; 99283; 99284; J7512

== ENCOUNTER 2023-08-08 16:27 | Emergency (ER) | payer MEDICAID ==
[2023-08-08] MEDS ORDERED: DEXAMETHASONE 10 MG/ML VIAL PO STA (16:49)
[2023-08-08] MEDS ORDERED: IPRATROPIUM/ALBUTEROL 3 ML NEB INH STA (16:49)
--- NOTE | 2023-08-08 17:00 | ED Physician Documentation ---
History of Present Illness - Stated complaint Stated Complaint: SOA - Chief complaint Chief Complaint: Resp - History obtained from History obtained from: Patient - History of Present Illness Timing: Today Pain level max: 0 Pain level now: 0 - Additonal information Additional information: 32-year-old female presents to the emergency department with mild cough for 2 days. She has had increased wheezing today. No fevers. No chills. Took albuterol at home without relief. She does smoke. Denies any possibility of . The cough is mostly dry. No abdominal pain, nausea, vomiting. Nothing seems to make it better or worse. 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 : None HEENT: None Psych: None Musculoskeletal: None Derm: None - Past Surgical History Past Surgical History: Yes General: Cholecystectomy Ortho: Other - Present Medications Home Medications: Ambulatory Orders Medication Instructions Recorded Confirmed Methadone [Methadone Hcl] 41 mg PO DAILY 12/17/18 08/08/23 Ipratropium/Albuterol [Duoneb] 3 ml INH Q6H PRN #1 each 08/05/22 08/08/23 Albuterol 2.5 mg INH Q4H PRN #30 ml 07/11/23 08/08/23 Albuterol Sulf [Ventolin Hfa 1 - 2 puffs INH Q4HR PRN #1 each 07/11/23 08/08/23 Inhaler] Budesonide/Formoterol Fumarate 10.2 gm IH DAILY 08/08/23 08/08/23 [Symbicort 80-4.5 Mcg Inhaler] predniSONE [Deltasone] 10 mg PO [id number] #42 tab 08/08/23 - Allergies Allergies/Adverse Reactions: Allergies Allergy/AdvReac Type Severity Reaction Status Date / Time No Known Drug Allergies Allergy Verified 08/08/23 16:37 - Social History Does the pt smoke?: No Smoking Status: Never smoker Does the pt drink ETOH?: No Does the pt have substance abuse?: No - Immunizations Immunizations are current?: No Immunizations: TDAP >10years/unknown - POLST Patient has POLST: No PD ED PE NORMAL - Vitals Vital signs reviewed: Yes - General General: Alert and oriented X 3, No acute distress - HEENT HEENT: PERRL, Moist mucous membranes, Pharynx benign - Neck Neck: Supple, no meningeal sign - Cardiac Cardiac: RRR - Respiratory Respiratory: No respiratory distress, Other (Audible wheezing) - Abdomen Abdomen: Soft, Non tender, Non distended - Derm Derm: Warm and dry, No rash - Extremities Extremities: No edema, No calf tenderness / cord - Neuro Neuro: Alert and oriented X 3 - Psych Psych: Normal mood, Normal affect Results - Vitals Vitals: Vital Signs - 24 hr 08/08/23 08/08/23 08/08/23 16:30 16:41 17:01 Temperature 36.8 C Heart Rate 96 95 96 Respiratory 22 22 24 Rate Blood Pressure 146/83 H 142/87 H O2 Saturation 90 L 90 L 08/08/23 08/08/23 08/08/23 17:10 17:38 18:18 Temperature Heart Rate 104 H 109 H 102 H Respiratory 22 20 22 Rate Blood Pressure 150/86 H O2 Saturation 93 08/08/23 08/08/23 18:35 19:39 Temperature Heart Rate 106 H 109 H Respiratory 20 18 Rate Blood Pressure 148/84 H 147/84 H O2 Saturation 94 93 Oxygen O2 Source Room air PD Medical Decision Making - ED course Complexity details: reviewed results, re-evaluated patient, considered differential, d/w patient ED course: Patient received dexamethasone and several breathing treatments in the emergency department. Wheezing resolved. She is ambulating without any hypoxia in the emergency department. States she feels much better. Will place on a steroid taper for home. Lungs are clear to auscultation bilaterally. No fevers. No indication for chest x-ray at this time. Patient is well-appearing, nontoxic. Patient counseled regarding signs and symptoms for which I believe and urgent re-evaluation would be necessary. Patient with good understanding of and agreement to plan and is comfortable going home at this time This document was made in part using voice recognition software. While efforts are made to proofread this document, sound alike and grammatical errors may occur. Departure - Departure Disposition: 01 Home, Self Care Clinical Impression: Acute asthma exacerbation Qualifiers: Asthma severity: moderate Asthma persistence: unspecified Qualified Code(s): J45.901 - Unspecified asthma with (acute) exacerbation Condition: Good Instructions: ED Reactive Airway Disease Follow-Up: your,doctor in 1 week [Other] Prescriptions: predniSONE [Deltasone] 10 mg PO [id number] #42 tab Comments: Your prescriptions were sent to [facility] in [place]. Continue to use your albuterol at home. Please return if you worsen. We will place you on a steroid taper for the next 10 days. Please return for increasing wheezing, increasing breathing difficulties fevers or other new or worrisome symptoms. Forms: PCP List Discharge Date/Time: 08/08/23 19:50
[2023-08-08] MEDS ORDERED: ALBUTEROL NEB 2.5 MG/3 ML INH STA ×2 (17:05→18:06)
[2023-08-08] MEDS ORDERED: IBUPROFEN 800 MG TABLET PO STA (17:45)
[2023-08-08 19:41] VITALS: BP 147/84; O2SAT 93
== END 2023-08-08 19:50 | disposition home or self-care (01) ==
LOC: ED 16:27
DX: J45.901 Unspecified asthma with (acute) exacerbation (principal); F17.200 Nicotine dependence, unspecified, uncomplicated
CPT/HCPCS: 94640; 94664; 99284; 99285; A9270

== ENCOUNTER 2023-11-03 21:54 | Emergency (ER) | payer MEDICAID ==
--- NOTE | 2023-11-03 22:11 | ED Physician Documentation ---
History of Present Illness - Stated complaint Stated Complaint: SOA/COUGH - Chief complaint Chief Complaint: Resp - History obtained from History obtained from: Patient - Additonal information Additional information: The patient comes to the emergency department with chief complaint of cough and shortness of breath. She states that started with a sore throat several days ago and then began to develop into a cough. She states the cough just seems to have gotten worse and has caused her asthma to kick up. She has been using her albuterol inhaler 3 times a day and taking nebulizer treatment in the morning and in the evening. She states she is a smoker. She denies any fevers or chills. A relative who does not live with her was recently positive for COVID but the patient states that she has stayed away from him. She is vaccinated for COVID. No other complaints at this time. 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 : None HEENT: None Psych: None Musculoskeletal: None Derm: None - Past Surgical History Past Surgical History: Yes General: Cholecystectomy Ortho: Other - Present Medications Home Medications: Ambulatory Orders Medication Instructions Recorded Confirmed Ipratropium/Albuterol [Duoneb] 3 ml INH Q6H PRN #1 each 08/05/22 11/03/23 Albuterol 2.5 mg INH Q4H PRN #30 ml 07/11/23 11/03/23 Albuterol Sulf [Ventolin Hfa 1 - 2 puffs INH Q4HR PRN #1 each 07/11/23 11/03/23 Inhaler] Budesonide/Formoterol Fumarate 10.2 gm IH DAILY 08/08/23 11/03/23 [Symbicort 80-4.5 Mcg Inhaler] Albuterol Sulf [Ventolin Hfa 1 - 2 puffs INH Q4HR PRN #1 each 11/03/23 Inhaler] predniSONE [Deltasone] 10 mg PO [id number] #42 tab 11/03/23 - Allergies Allergies/Adverse Reactions: Allergies Allergy/AdvReac Type Severity Reaction Status Date / Time No Known Drug Allergies Allergy Verified 11/03/23 22:02 - Social History Does the pt smoke?: No Smoking Status: Never smoker Does the pt drink ETOH?: No Does the pt have substance abuse?: No - Immunizations Immunizations are current?: No Immunizations: TDAP >10years/unknown - POLST Patient has POLST: No PD ED PE NORMAL - Vitals Vital signs reviewed: Yes - General General: Alert and oriented X 3, No acute distress, Well developed/nourished - HEENT HEENT: Atraumatic, EOMI, Moist mucous membranes - Neck Neck: Supple, no meningeal sign - Cardiac Cardiac: RRR, No murmur - Respiratory Respiratory: No respiratory distress, Other (Moderate wheezing, mildly prolonged expiratory phase. No rales.) - Abdomen Abdomen: Soft, Non tender, Non distended - Derm Derm: Normal color, Warm and dry, No rash - Extremities Extremities: No deformity, No edema - Neuro Neuro: Alert and oriented X 3, Other (Grossly intact) - Psych Psych: Normal mood, Normal affect Results - Vitals Vitals: Vital Signs - 24 hr 11/03/23 11/03/23 21:58 22:20 Temperature 36.3 C L Heart Rate 92 90 Respiratory 20 28 H Rate Blood Pressure 142/85 H O2 Saturation 99 Oxygen O2 Source Room air - Rads (name of study) Chest x-ray Relevant Findings:: Final report received, See rad report (Negative) PD Medical Decision Making - ED course Complexity details: reviewed results, re-evaluated patient, considered differential, d/w patient ED course: The patient's oxygen saturation was good and she was found to be moving air well despite some wheezing throughout her lungs. She was treated symptomatically in the emergency department with a DuoNeb and IM Decadron. She was worked up with a respiratory PCR panel, which is pending at this time, and chest x-ray. Chest x-ray is negative. The patient was much improved on reevaluation. She reported feeling much better and her wheezing had almost completely resolved. I advised patient that I have sent in a prescription for a steroid taper as well as a new inhaler to the [facility] pharmacy in [place], her pharmacy of choice. We have discussed symptomatic management at home as well as the usual indications for return. Departure - Departure Disposition: 01 Home, Self Care Clinical Impression: Viral upper respiratory infection Asthma exacerbation Qualifiers: Asthma severity: mild Asthma persistence: intermittent Qualified Code(s): J45.21 - Mild intermittent asthma with (acute) exacerbation Condition: Stable Instructions: Asthma Dc, ED Viral Syndrome Prescriptions: Albuterol Sulf [Ventolin Hfa Inhaler] 1 - 2 puffs INH Q4HR PRN #1 each PRN Reason: Shortness Of Air/Wheezing predniSONE [Deltasone] 10 mg PO [id number] #42 tab Comments: Your x-ray looks good, and your lungs are doing better after breathing treatment. A respiratory viral panel has been obtained and is pending at this time. We will notify you of any significant positive results. Otherwise, your upper respiratory infection is almost certainly viral and has kicked off a flareup of your asthma. This should calm down as your body fights off the virus. You have been given a nebulizer treatment to different medications and tonight, and you have also been started on a steroid course. A prescription for your albuterol inhaler and for your steroids been electronically transmitted to the [facility] in [place]. Please pick this up first thing in the morning. Forms: PCP List
[2023-11-03] MEDS: IPRATROPIUM/ALBUTEROL 3 ML NEB INH STA (22:20)
[2023-11-03] MEDS: DEXAMETHASONE 10 MG/ML VIAL IM STA (22:26)
--- NOTE | 2023-11-03 22:40 | XRAY Report ---
PROCEDURE: Chest 1V INDICATIONS: cough/sob TECHNIQUE: One view of the chest was acquired. COMPARISON: 07/11/2023 FINDINGS: Surgical changes and devices: None. Lungs and pleura: No pleural effusions or pneumothorax. Lungs are clear. Mediastinum: Mediastinal contours appear normal. Heart size is normal. Bones and chest wall: No suspicious bony lesions. Overlying soft tissues appear unremarkable. IMPRESSION: No acute cardiopulmonary process. Reviewed by: Alejandra Salcido MD on 11/03/2023 10:39 PM PST Approved by: Alejandra Salcido MD on 11/03/2023 10:39 PM PST Station ID: [id number]
[2023-11-03 23:12] LABS: B. PARAPERTUSSIS- RESP PCR PAN NOT DETECTED; B. PERTUSSIS- RESP PCR PANEL NOT DETECTED; C. PNEUMONIAE- RESP PCR PANEL NOT DETECTED; CORONAVIRUS 229E-RESP PCR NOT DETECTED; CORONAVIRUS HKU1-RESP PCR NOT DETECTED; CORONAVIRUS NL63-RESP PCR NOT DETECTED; CORONAVIRUS OC43-RESP PCR NOT DETECTED; HUMAN METAPNEUMOVIRUS NOT DETECTED; INFLUENZA A- RESP PCR PANEL NOT DETECTED; INFLUENZA B - RESP PCR PANEL NOT DETECTED; M. PNEUMONIAE- RESP PCR PANEL NOT DETECTED; PARAINFLUENZA VIRUS 1 NOT DETECTED; PARAINFLUENZA VIRUS 2 NOT DETECTED; PARAINFLUENZA VIRUS 3 NOT DETECTED; PARAINFLUENZA VIRUS 4 DETECTED; RHINOVIRUS/ENTEROVIRUS NOT DETECTED; RSV- RESP PCR PANEL NOT DETECTED; SARS-CoV-2 -RESP PCR PANEL NOT DETECTED
[2023-11-03 23:16] VITALS: BP 142/93; O2SAT 95
== END 2023-11-03 23:07 | disposition home or self-care (01) ==
LOC: ED 21:54
DX: J45.21 Mild intermittent asthma with (acute) exacerbation (principal); J06.9 Acute upper respiratory infection, unspecified; F17.200 Nicotine dependence, unspecified, uncomplicated; Z11.52 Encounter for screening for COVID-19
CPT/HCPCS: 87633; 94640; 94664; 96372; 99284